=== PATIENT | male | born 1965 | race Caucasian/White ===

== ENCOUNTER 2016-06-14 11:23 | Emergency (ER) | payer SELFPAY ==
[~2016-06-14] VITALS: Ht 177.8 cm; Wt 79.4 kg
[2016-06-14 11:23] VITALS: BP 121/81
== END 2016-06-14 13:55 | disposition home or self-care (01) ==
LOC: ER 11:42
DX: J20.9 Acute bronchitis, unspecified (principal); E78.00 Pure hypercholesterolemia, unspecified
CPT/HCPCS: 99283; A4606; Z7610

== ENCOUNTER 2016-09-13 20:23 | Emergency (ER) | payer SELFPAY ==
[~2016-09-13] VITALS: Ht 177.8 cm; Wt 88.9 kg
[2016-09-13 20:32] VITALS: BP 142/92
== END 2016-09-13 21:07 | disposition home or self-care (01) ==
LOC: ER 20:24
DX: Z76.0 Encounter for issue of repeat prescription (principal); F41.9 Anxiety disorder, unspecified; E03.9 Hypothyroidism, unspecified; F32.9 Major depressive disorder, single episode, unspecified; E78.00 Pure hypercholesterolemia, unspecified
CPT/HCPCS: 99283; A4606; Z7610

== ENCOUNTER 2019-06-29 22:41 | Inpatient (IN) | payer OTHER ==
[~2019-06-29] VITALS: Ht 175.3 cm; Wt 107.5 kg
[2019-06-29] MEDS ORDERED: LORAZEPAM INJ 2 MG/ML VIAL ONE ×4 (22:59→23:45)
[2019-06-29] MEDS ORDERED: LORAZEPAM INJ 2 MG/ML VIAL IV ONE ×2 (23:00→23:30)
[2019-06-29] MEDS ORDERED: IV NS 0.9% 1,000 ML BAG IV ONE (23:00)
--- NOTE | 2019-06-29 23:00 | NUR ---
PT PRESENTED TO THE ER WITH A C/O REACTION TO GENERIC SEROQUEL. PT IS ANXIOUS AND RESTLESS. PT IS AMBULATING AROUND THE ROOM. VERY UPSET. PT IS ON THE MONITOR AND CONTINUOUS PULSE OX.
--- NOTE | 2019-06-29 23:30 | NUR ---
PT REC'D ATIVAN IV AND IS BECOMING MORE AGGITATED AND ANXIOUS. PT IS DIAPHORETIC AND AUDIBLE WHEEZING NOTED. PT IS TAKING OFF ALL MONITOR LEADS. PT'S IV WAS PULLED OUT WHEN PT WAS FLAILING AROUND IN THE BED. NEW 18G IV STARTED IN RT WRIST.
[2019-06-29] MEDS ORDERED: diphenhydrAMINE HCL 50 MG/ML VIAL ONE (23:40)
[2019-06-29] MEDS ORDERED: HALOPERIDOL LACTATE INJ 5 MG/ML VIAL ONE (23:40)
[2019-06-30] VITALS (49 sets, daily range): BP systolic 72–159; BP diastolic 45–110
[2019-06-30] MEDS ORDERED: diphenhydrAMINE HCL 50 MG/ML VIAL IV ONE
[2019-06-30] MEDS ORDERED: HALOPERIDOL LACTATE INJ 5 MG/ML VIAL IV ONE
[2019-06-30] MEDS ORDERED: CYPROHEPTADINE HCL 4 MG TABLET PO ONE
[2019-06-30 00:01] LABS: BASOPHILS # (AUTO) 0.1 /CMM (0.0-0.2); BASOPHILS % (AUTO) 1.4 % (0.0-2.0); EOSINOPHILS % (AUTO) 2.9 % (0.0-6.0); HEMATOCRIT 45 % (39-51); HEMOGLOBIN 15.2 g/dL (13.5-17.5); LYMPHOCYTES # (AUTO) 1.8 /CMM (0.8-4.8); LYMPHOCYTES % (AUTO) 21.4 % (20.0-44.0); MEAN CORPUSCULAR HGB CONC 34 g/dl (31.0-36.0); MEAN CORPUSCULAR VOLUME 87 fL (80-96); MONOCYTES # (AUTO) 0.9 /CMM (0.1-1.30); MONOCYTES % (AUTO) 10.3 % (2.0-12.0); NEUTROPHILS # (AUTO) 5.5 /CMM (1.8-8.9); PLATELET COUNT (AUTO) 278 /CMM (150-450); RED BLOOD CELL COUNT(AUTO) 5.16 MIL/uL (4.5-6.0); WHITE BLOOD COUNT (AUTO) 8.6 K/uL (4.3-11.0)
[2019-06-30] MEDS ORDERED: LORAZEPAM INJ 2 MG/ML VIAL ONE (00:02)
[2019-06-30 00:07] LABS: CALCIUM, SERUM 9.5 mg/dL (8.5-10.1); CREATININE 1.2 mg/dL (0.6-1.3); POTASSIUM 4.4 mmol/L (3.5-5.1)
--- NOTE | 2019-06-30 00:07 | NUR ---
DR AGUILAR AND Jun RAE, PAC IS AT THE BEDSIDE EVALUATING THE PT. PT TO BE INTUBATED.
--- NOTE | 2019-06-30 00:07 | NUR ---
Ayo suggs in ED - 06/30/19 at 0046 by [email or web address] ETOMIDATE 20MG IV VIA 18G RT WRIST.
--- NOTE | 2019-06-30 00:07 | NUR ---
PT BECAME EXTREMELY ANXIOUS AND AGGRESSIVE. PT TO BE INTUBATED
--- NOTE | 2019-06-30 00:08 | NUR ---
PT IS ON THE MONITOR AND CONTINUOUS PULSE OX. HR 96 BP 164/121 0009 TIME OUT DONE BAGGING IN PROCESS 0010 40 MG ETOMIDATE AND 200 MG SUCC VIA 18G RT WRIST. 127 173/115 SUCTIONING IN PROGRESS. 0011 PT BEING INTUBATED 0013 BAGGING PT 0014 PT INTUBATED 24@ LIP ETT 7.5 + COLOR CHANGE 0019 HR 140 BP171/107
[2019-06-30] MEDS ORDERED: PROPOFOL 100 ML ONE ×3 (00:12→04:37)
[2019-06-30 00:13] LABS: ALBUMIN 3.7 g/dL (3.4-5.0); BILIRUBIN,DIRECT 0.1 mg/dL (0.0-0.2); BILIRUBIN,TOTAL 0.6 mg/dL (0.2-1.0); TOTAL PROTEIN, SERUM 6.6 g/dL (6.4-8.2)
--- NOTE | 2019-06-30 00:19 | NUR ---
VENT SETTINGS: AC16, TV550, FIO2 60, PEEP 5.
--- NOTE | 2019-06-30 00:23 | NUR ---
ORAL SUCTIONING DONE WITH CHRIS. INLINE SUCTIONING DONE AND OG TUBE CONNECTED TO INTERMITTENT SUCTIONING. COPIOUS AMOUNTS OF SECTRETIONS REMOVED.
[2019-06-30] MEDS ORDERED: LORAZEPAM INJ 2 MG/ML VIAL IV ONE ×3 (00:30)
--- NOTE | 2019-06-30 00:38 | NUR ---
CXR DONE AT THE BEDSIDE.
[2019-06-30 00:43] LABS: THYROID STIMULATING HORMONE 1.719 uIU/mL (0.358-3.74)
[2019-06-30] MEDS ORDERED: MIDAZOLAM HCL 5 MG/5ML VIAL ONE ×3 (00:49→04:14)
--- NOTE | 2019-06-30 00:57 | NUR ---
PT IS ON 100 MCG/MIN OF PROPOFOL.
[2019-06-30] MEDS ORDERED: FLAGYL/NS RTU 500 MG/100 ML PIGGYBACK IV ONE (01:00)
[2019-06-30] MEDS ORDERED: MIDAZOLAM HCL 2 MG/2ML VIAL IV ONE (01:00)
[2019-06-30] MEDS ORDERED: PIPERACILLIN /TAZOBACTAM 3.375 G in IV D5W 50 ML IV ONE (01:00)
--- NOTE | 2019-06-30 01:00 | NUR ---
SUCTIONING DONE. SMALL AMOUNT OF SECRETIONS REMOVED.
--- NOTE | 2019-06-30 01:01 | NUR ---
RT NOTE Late Entry: Pt rec'd orally intubated via ETT #7.5 secured @ 24cm at the lipline. pt shows no signs of distress or sob. Sx'd for thick large amt of scott secretions. Alarms are set and audible. Ambu bag bedside. Vent plugged into red outlet. Will continue to monitor Addendum: 06/30/19 at 0843 by RODRIGO MCFARLANE RT Amended: Links added.
[2019-06-30] MEDS ORDERED: PIPERACILLIN /TAZOBACTAM 3.375 G VIAL IV ONE (01:06)
[2019-06-30] MEDS ORDERED: METRONIDAZOLE 500MG/ NS 100ML 100 ML IV ONE (01:06)
--- NOTE | 2019-06-30 01:14 | NUR ---
MARCIAL HAMILTON, IS AT THE BEDSIDE DRAWING BLOOD CULTURES
[2019-06-30 01:21] LABS: APPEARANCE,URINE Clear (CLEAR); BILIRUBIN,URINE Negative (NEGATIVE); BLOOD, URINE Negative Ery/uL (NEGATIVE); COLOR,URINE Yellow (YELLOW); KETONES,URINE Negative (NEGATIVE); LEUKOCYTE ESTERASE ,URINE Negative (NEGATIVE); NITRITE, URINE Negative (NEGATIVE); PROTEIN,URINE Negative (NEGATIVE); UGLUCOSE Negative (NEGATIVE); UROBILINOGEN,URINE 0.2 EU/dL (0.2)
[2019-06-30] MEDS ORDERED: IV NS 0.9% 1,000 ML BAG IV ONE ×2 (01:30→04:00)
--- NOTE | 2019-06-30 02:00 | NUR ---
Flagyl 500mg ivpb lh iv#16 end time 0230 Addendum: 06/30/19 at 0648 by CBATACLAN Flagyl 500mg ivpb lh iv#16 end time 0300
[2019-06-30] MEDS ORDERED: MIDAZOLAM HCL 5 MG/5ML VIAL IV ONE ×2 (02:30→04:30)
--- NOTE | 2019-06-30 02:30 | NUR ---
PROPOFOL DECREASED TO 80MCG/MIN
[2019-06-30] MEDS ORDERED: DULOXETINE DR PO (02:39)
[2019-06-30] MEDS ORDERED: LEVO150T8 PO (02:39)
[2019-06-30] MEDS ORDERED: QUET200T PO (02:39)
[2019-06-30] MEDS ORDERED: GABA-786 PO (02:39)
[2019-06-30] MEDS ORDERED: LISI-603 PO (02:39)
--- NOTE | 2019-06-30 02:41 | NUR ---
PT APPEARS TO BE RESTING COMFORTABLY WITH NO S/S OF PAIN OR DISTRESS.
--- NOTE | 2019-06-30 03:13 | NUR ---
PT WAS SUCTIONED. PT'S BP 88/49. PROPOFOL DECREASED BY CHARMAINE RN TO 70MCG/MIN.
--- NOTE | 2019-06-30 03:23 | NUR ---
PROPOFOL DECREASED TO 60MCG/MIN. PT'S BP IS
--- NOTE | 2019-06-30 03:27 | NUR ---
PROPOFOL DECREASED TO 50MCG/MIN
--- NOTE | 2019-06-30 03:28 | NUR ---
INLINE SUCTIONING DONE. SMALL AMOUNT OF SECRETIONS REMOVED.
--- NOTE | 2019-06-30 03:41 | NUR ---
PROPOFOL IS AT 30MCG/MIN.
--- NOTE | 2019-06-30 04:01 | NUR ---
RT IS AT THE BEDSIDE SUCTIONING THE PT AND GETTING AN ABG.
[2019-06-30 04:19] LABS: ABG BASE EXCESS -8.2 mmol/L; ABG OXYGEN SATURATION 96.5 % (92.0-98.5); ABG PCO2 52.8 mmHg (35.0-45.0); ABG PH 7.201 (7.350-7.450); ABG PO2 111.4 mmHg (75.0-100.0); AaDO2 548.8 mmHg; COHb 0.1 % (0.5-1.5); MetHb 0.5 % (0.0-1.5); O2Hb 95.9 % (94.0-97.0); PEEP,BG 5 cm H2O; SITE, ABG Right Radial; VENT MODE, BG AC 16 550 100%
--- NOTE | 2019-06-30 04:20 | NUR ---
VENT SETTINGS CHANGED AFTER ABG TO THE FOLLOWING: AC20, TV600, FIO2 60%, 0 PEEP
--- NOTE | 2019-06-30 05:22 | NUR ---
PT IS STILL TACHYPNEIC WITH RESP 27. PT IS ON 20MCG/MIN OF PROPOFOL VIA 18G RT WRIST.
--- NOTE | 2019-06-30 05:22 | NUR ---
Note es in EDM - 06/30/19 at 0523 by [email or web address] PT IS STIL TACHYPNEIC WITH RESP 27. PT IS ON 20MCG/MIN OF PROPOFOL VIA 18G RT WRIST.
--- NOTE | 2019-06-30 06:08 | NUR ---
PT IS ON THE MONITOR AND CONTINUOUS PULSE OX. PT IS ON 20 MCG/MIN OF PROPOFOL. PT IS STILL TACHYPNEIC WITH RESP @ 28. TOTAL URINE OUTPUT SINCE BINGHAM WAS INSERTED IS 650ML YELLOW URINE.
--- NOTE | 2019-06-30 06:47 | NUR ---
ACCIDENTALLY MARKED OFF FLAGYL ON PT'S EMAR INSTEAD OF MARKING OFF THE NORMAL SALINE ORDER. TRIED TO CORRECT THE ADMINISTRATION ON THE EMAR, BUT AM NOT ABLE TO CORRECT IT. FLAGYL WAS GIVEN BY SHERYL MONTANO AT 0200.
--- NOTE | 2019-06-30 07:08 | NUR ---
REPORT GIVEN TO NAHED SAUCEDO FOR RENAY.
--- NOTE | 2019-06-30 07:32 | NUR ---
patient in bed, connected to the monitor. titrate propofol to 40mcg, patient vital signs recorded. will continue to monitor accordingly.
[2019-06-30] MEDS ORDERED: MIDAZOLAM HCL 200 MG in IV NS 0.9% 60 ML IV PRN (09:00)
[2019-06-30] MEDS ORDERED: LEVOTHYROXINE SODIUM 150 MCG TABLET PO SCH (09:00)
--- NOTE | 2019-06-30 09:03 | NUR ---
received a call from Loren Cvoarrubias in regards with patient on propofol but patient still awaken up, and ordered Versed may titrate to effect, called pharmacy and spoke to Meanastasiia will deliver.
[2019-06-30 09:21] LABS: CALCIUM, SERUM 8.2 mg/dL (8.5-10.1); CREATININE 2.5 mg/dL (0.6-1.3); PHOSPHORUS 2.9 mg/dL (2.5-4.9); POTASSIUM 4.4 mmol/L (3.5-5.1)
[2019-06-30 09:35] LABS: BASOPHILS % (AUTO) 0.5 % (0.0-2.0); EOSINOPHILS % (AUTO) 0.9 % (0.0-6.0); HEMATOCRIT 44 % (39-51); HEMOGLOBIN 14.6 g/dL (13.5-17.5); LYMPHOCYTES # (AUTO) 0.3 /CMM (0.8-4.8); LYMPHOCYTES % (AUTO) 13.7 % (20.0-44.0); MEAN CORPUSCULAR HGB CONC 33 g/dl (31.0-36.0); MEAN CORPUSCULAR VOLUME 88 fL (80-96); MONOCYTES # (AUTO) 0.2 /CMM (0.1-1.30); MONOCYTES % (AUTO) 9.3 % (2.0-12.0); NEUTROPHILS # (AUTO) 1.4 /CMM (1.8-8.9); NEUTROPHILS % (AUTO) 75.6 % (43.0-81.0); PLATELET COUNT (AUTO) 246 /CMM (150-450); RED BLOOD CELL COUNT(AUTO) 5.01 MIL/uL (4.5-6.0)
--- NOTE | 2019-06-30 09:45 | NUR ---
Profopol d/c as ordered by started Versed at 7mg/hr.
[2019-06-30 09:50] LABS: WHITE BLOOD COUNT (AUTO) 1.9 K/uL (4.3-11.0)
[2019-06-30 10:03] LABS: BAND % (MANUAL) 25 % (0.0-5.0); LYMPHOCYTES % (MANUAL) 15 % (16-48); MONOCYTES % (MANUAL) 10 % (0-11.0); NEUTROPHILS % (MANUAL) 50 (42-76)
[2019-06-30] MEDS: MIDAZOLAM HCL 100 MG in IV NS 0.9% 80 ML IV PRN ×2 (10:14→14:35)
[2019-06-30] MEDS: IV NS 0.9% 1,000 ML IV SCH ×2 (10:30→18:14)
--- NOTE | 2019-06-30 11:01 | NUR ---
Versed increased to 10mg/hr may titrate to effect as ordered
[2019-06-30] MEDS ORDERED: IPRATROPIUM NEB FS 0.5 MG/2.5 ML AMPUL.NEB ONE (11:09)
[2019-06-30] MEDS: IPRATROPIUM NEB FS 0.5 MG/2.5 ML AMPUL.NEB NEB SCH ×4 (11:19→23:09)
[2019-06-30] MEDS ORDERED: ETOMIDATE 2 MG/ML VIAL IV ONE (11:24)
[2019-06-30] MEDS ORDERED: SUCCINYLCHOLINE CHLORIDE 20 MG/ML VIAL IV ONE (11:24)
--- NOTE | 2019-06-30 12:31 | NUR ---
GOT ICU BED 261
--- NOTE | 2019-06-30 13:07 | NUR ---
called Dr. wynn regarding patient BP low and informed Dr. Wynn and ordered Levophed may titrate in effect.
--- NOTE | 2019-06-30 13:18 | NUR ---
REPORT GIVEN TO MATEUS SAUCEDO FOR RENAY
--- NOTE | 2019-06-30 13:26 | NUR ---
Dr. Hudson at bedside and ordered Neosynephrine may titrate to effect. All orders carried out and noted.
[2019-06-30] MEDS ORDERED: NOREPINEPHRINE 8 MG in IV D5W 500 ML IV PRN (13:30)
[2019-06-30] MEDS ORDERED: PHENYLEPHRINE 20 MG in IV D5W 250 ML IV PRN (13:30)
--- NOTE | 2019-06-30 13:45 | NUR ---
wheeled patient via gurney accompanied by RN , RT and emt going to room 261 ICU. RN at bedside to assume care.
--- NOTE | 2019-06-30 14:00 | NUR ---
PATIENT ARRIVES FROM ER INTUBATED AND RESTLESS ON VERSED DRIP AND NON RESPONSIVE TO VERBAL STIMULI. WAS ABLE TO CONTACT SPOUSE JONAH SALGADO AFTER PATIENT PHONE RANG AND HIS MENTAL HEALTH WORKER STATES SHE WILL CONTACT FAMILY AND HAVE HER TO CALL US.CONSENT WAS OBTAINED TO PLACE PICC LINE.
[2019-06-30] MEDS ORDERED: IV NS 0.9% 1,000 ML IV PRN (15:29)
[2019-06-30] MEDS ORDERED: ONDANSETRON HCL/PF 4 MG/2 ML VIAL IVP PRN (15:30)
[2019-06-30] MEDS ORDERED: Z GUARD REMEDY 2 OZ OINT TP PRN (15:30)
[2019-06-30] MEDS ORDERED: ACETAMINOPHEN 325 MG TABLET PO PRN (15:30)
[2019-06-30] MEDS: PANTOPRAZOLE 40 MG VIAL IV SCH (15:30)
[2019-06-30 15:59] LABS: BASOPHILS % (AUTO) 0.5 % (0.0-2.0); EOSINOPHILS % (AUTO) 0.8 % (0.0-6.0); HEMATOCRIT 35 % (39-51); HEMOGLOBIN 11.9 g/dL (13.5-17.5); LYMPHOCYTES # (AUTO) 0.4 /CMM (0.8-4.8); LYMPHOCYTES % (AUTO) 8.9 % (20.0-44.0); MEAN CORPUSCULAR HGB CONC 34 g/dl (31.0-36.0); MEAN CORPUSCULAR VOLUME 89 fL (80-96); MONOCYTES # (AUTO) 0.3 /CMM (0.1-1.30); MONOCYTES % (AUTO) 7.6 % (2.0-12.0); NEUTROPHILS # (AUTO) 3.6 /CMM (1.8-8.9); NEUTROPHILS % (AUTO) 82.2 % (43.0-81.0); PLATELET COUNT (AUTO) 181 /CMM (150-450); RED BLOOD CELL COUNT(AUTO) 3.89 MIL/uL (4.5-6.0); WHITE BLOOD COUNT (AUTO) 4.3 K/uL (4.3-11.0)
[2019-06-30] MEDS ORDERED: MORPHINE SULFATE INJ 4 MG/ML DISP.SYRIN IV ONE (16:00)
[2019-06-30] MEDS ORDERED: PROPOFOL 100 ML IV PRN (16:00)
[2019-06-30 16:10] LABS: CALCIUM, SERUM 7.5 mg/dL (8.5-10.1); CREATININE 3.2 mg/dL (0.6-1.3); POTASSIUM 4.6 mmol/L (3.5-5.1)
[2019-06-30 16:23] LABS: ALBUMIN 2.6 g/dL (3.4-5.0); BILIRUBIN,TOTAL 1.3 mg/dL (0.2-1.0); MAGNESIUM 1.6 mg/dL (1.8-2.4); PHOSPHORUS 4.1 mg/dL (2.5-4.9); TOTAL PROTEIN, SERUM 4.8 g/dL (6.4-8.2)
[2019-06-30 17:33] LABS: EOSINOPHILS % (MANUAL) 1 % (0-4); LYMPHOCYTES % (MANUAL) 10 % (16-48); MONOCYTES % (MANUAL) 9 % (0-11.0); NEUTROPHILS % (MANUAL) 80 (42-76)
[2019-06-30] MEDS: PROPOFOL 100 ML IV PRN ×2 (18:16→21:08)
--- NOTE | 2019-06-30 19:00 | NUR ---
RECEIVED PATIENT ORALLY INTUBATED ,TO THE VENTILATOR ON AC MODE, TACHYPNEIC, WITH DEEP INSPIRATORY EFFORT, RR=30'S . HYPOTENSIVE ,JUST STARTED ON NEOSYNEPHRINE DRIP FOR BP SUPPORT(MAINTAIN BP 90 SYSTOLIC AND ABOVE), ON PROPOFOL DRIP FOR SEDATION (SAS OF 3), WILL TITRATED DRIPS TOLERATED. PICC LINE VIA DORY (INSERTED TODAY). OGT CLAMPED NOTED LIGHT BROWNISH DRAINAGE.
--- NOTE | 2019-06-30 20:00 | NUR ---
STILL TACHYPNEIC WITH LABORED BREATHING( UNABLE TO INCREASE PROPOFOL HIGHER DUE TO HYPOTENSION.), WILL TITRATE NEOSYNEPHRINE DRIP.
--- NOTE | 2019-06-30 20:19 | NUR ---
RECEIVED PT INTUBATED 7.5 ETT SECURED AT 24CM AT THE LIP. NO DISTRESS. PT TOLERATING VENT SETTINGS. B/S DIMINISHED BILAT. SX'D FOR SML AMT OF THICK GOODMAN SECRETIONS. VENT ALARMS SET AND AUDIBLE AMBU BAG AT BEDSIDE. CONTINUE [facility] VENT SUPPORT. Addendum: 06/30/19 at 2020 by CALEB JACOBO RT Amended: Links added.
[2019-06-30] MEDS: ENOXAPARIN SODIUM 40 MG/0.4 ML DISP.SYRIN SQ SCH (22:04)
--- NOTE | 2019-06-30 22:30 | NUR ---
CONTACTED MOD, MARY JO AUGUSTIN RESPONDED, UPDATED ON PATIENT'S STATUS,STILL TACHYPNEIC WITH LABORED BREATHING AND STILL TACHYCARDIC, UNABLE TO INCREASE SEDATION DUE TO HYPOTENSION,ASKE IF ATIVAN PRN CAN BE GIVEN .MARY JO AUGUSTIN AGREED,ASKED IF LUMBAR PUNCTURE WAS DONE, MADE HIM KNOWN THAT IT WAS NOT DONE . WANTS TO SET UP FOR LUMBAR PUNCTURE TONIGHT. 2300 CALLED FAMILY ( NUMBER FROM THE CHART) NO ONE ANSWERED ,LEFT MESSAGE VIA VOICEMAIL TO OBTAIN CONSENT.
[2019-06-30] MEDS: LORAZEPAM INJ 2 MG/ML VIAL IV PRN (22:56)
[2019-06-30] MEDS: PHENYLEPHRINE 80 MG in IV NS 0.9% 250 ML IV PRN (23:04)
--- NOTE | 2019-06-30 23:25 | NUR ---
STAT CT HEAD ORDERED BY MARY JO AUGUSTIN,ENTERED ORDER STAT.CALLED CT DEPT. TO MAKE THEM AWARE OF CT
--- NOTE | 2019-06-30 23:45 | NUR ---
2ND CALL MADE TO FAMILY,WENT TO VOICE MAIL,LEFT MESSAGE AGAIN TO CALL BACK TO OBTAIN CONSENT FOR LUMBAR PUNCTURE.
[2019-07-01] VITALS (80 sets, daily range): BP systolic 74–140; BP diastolic 43–82
--- NOTE | 2019-07-01 00:25 | NUR ---
BROUGHT PATIENT DOWN TO CT DEPT FOR CT OF HEAD
[2019-07-01] MEDS ORDERED: MEROPENEM 1 G VIAL IV ONE (00:57)
[2019-07-01] MEDS: MEROPENEM 1 G in IV NS 0.9% 100 ML IV SCH ×3 (01:00→23:54)
[2019-07-01] MEDS ORDERED: MIDAZOLAM HCL 2 MG/2ML VIAL IV ONE (01:00)
[2019-07-01] MEDS ORDERED: VANCOMYCIN 1.5 GM in IV D5W 500ml IV ONE (01:00)
[2019-07-01] MEDS: PROPOFOL 100 ML IV PRN ×9 (01:05→21:46)
[2019-07-01] MEDS ORDERED: MIDAZOLAM HCL 2 MG/2ML VIAL ONE (01:12)
--- NOTE | 2019-07-01 01:15 | NUR ---
LUMBAR PUNCTURE DONE AT BEDSIDE BY MARY JO AUGUSTIN ,FAMILY DID NOT CALL BACK FOR THE CONSENT ,BUT PROCEDURE NECESSARY TO BE DONE PER MARY JO AUGUSTIN DUE TO CONDITION.
--- NOTE | 2019-07-01 01:35 | NUR ---
LUMBAR PUNCTURE DONE SUCCESSFULLY BY MARY JO AUGUSTIN , CSF IS CLEAR, PRESSURE= 39 . SPECIMEN SENT DIRECTLY TO THE LAB FOR MULTIPLE TEST.
[2019-07-01] MEDS ORDERED: VANCOMYCIN 1 GM VIAL ONE (02:17)
[2019-07-01 02:28] LABS: CSF GLUCOSE 70 mg/dL (40-70)
[2019-07-01 02:30] LABS: CSF PROTEIN 34 mg/dL (15-45)
--- NOTE | 2019-07-01 02:30 | NUR ---
NOTED TO BE MORE RESTLESS,GAGGING AND STILL TACHYPNEIC , PROPOFOL DRIP TITRATED UP .
[2019-07-01] MEDS ORDERED: PHENYLEPHRINE 10 MG/ML VIAL ONE (02:46)
[2019-07-01] MEDS: LORAZEPAM INJ 2 MG/ML VIAL IV PRN (03:06)
[2019-07-01] MEDS: IPRATROPIUM NEB FS 0.5 MG/2.5 ML AMPUL.NEB NEB SCH ×5 (03:23→23:33)
--- NOTE | 2019-07-01 04:00 | NUR ---
REMAINS TACHYPNEIC ,SEDATED BUT NOTED FREQUENT MOVING/WITHDRAWING BOTH LOWER EXTREMITIES ,? IF INVOLUNTARY MOVEMENT. AM BATH DONE, TEMP. = 100.3 ,FEELS WARM TO TOUCH AND DIAPHORETIC,COOLONG MEASURES DONE.
[2019-07-01] MEDS: PHENYLEPHRINE 80 MG in IV NS 0.9% 250 ML IV PRN ×4 (04:12→21:47)
[2019-07-01 04:38] LABS: BASOPHILS % (AUTO) 0.2 % (0.0-2.0); EOSINOPHILS % (AUTO) 0.4 % (0.0-6.0); HEMATOCRIT 42 % (39-51); HEMOGLOBIN 14.1 g/dL (13.5-17.5); LYMPHOCYTES # (AUTO) 0.6 /CMM (0.8-4.8); MEAN CORPUSCULAR HGB CONC 34 g/dl (31.0-36.0); MEAN CORPUSCULAR VOLUME 89 fL (80-96); MONOCYTES # (AUTO) 0.4 /CMM (0.1-1.30); MONOCYTES % (AUTO) 3.1 % (2.0-12.0); NEUTROPHILS # (AUTO) 10.5 /CMM (1.8-8.9); NEUTROPHILS % (AUTO) 91.3 % (43.0-81.0); PLATELET COUNT (AUTO) 223 /CMM (150-450); RED BLOOD CELL COUNT(AUTO) 4.68 MIL/uL (4.5-6.0); WHITE BLOOD COUNT (AUTO) 11.5 K/uL (4.3-11.0)
[2019-07-01 04:46] LABS: CALCIUM, SERUM 7.8 mg/dL (8.5-10.1); CREATININE 3.6 mg/dL (0.6-1.3); POTASSIUM 5.5 mmol/L (3.5-5.1)
[2019-07-01 04:51] LABS: ALBUMIN 2.6 g/dL (3.4-5.0); BILIRUBIN,TOTAL 0.9 mg/dL (0.2-1.0); MAGNESIUM 1.6 mg/dL (1.8-2.4); PHOSPHORUS 5.2 mg/dL (2.5-4.9); TOTAL PROTEIN, SERUM 5.3 g/dL (6.4-8.2)
--- NOTE | 2019-07-01 05:30 | NUR ---
BP DROP TO THE 70'S AFTER COOLING MEASURES,PATIENT CALMER,HEART RATE DOWN BELOW 100'S..TITRATED NEOSYNEPHRINE DRIP UP AND WILL WEAN DOWN PROPOFOL DRIP TOLERATED.
--- NOTE | 2019-07-01 07:00 | NUR ---
PATIENT CALMER,WELL SEDATED,STILL ON NEOSYNEPHRINE ,BP IN THE 90'S SYSTOLIC-LOW 100'S, GEART RATE IN THE 90'S..REPORT GIVE TO DELMI SAUCEDO
--- NOTE | 2019-07-01 08:35 | NUR ---
received pt from warehouse worker 2nd shift, sedated on Diprivan at 60mcg, SR, ST, intubated, on the vent, lungs congested, no edema, OG clamped, f/c low output, MD aware, receiving fredis at 280mcg, restraints on, v/s stable, no pain, pt turned and repositioned.
[2019-07-01] MEDS: PANTOPRAZOLE 40 MG VIAL IV SCH (08:46)
[2019-07-01] MEDS: LEVOTHYROXINE SODIUM 75 MCG TABLET PO SCH (08:47)
[2019-07-01] MEDS: IV NS 0.9% 1,000 ML IV PRN ×2 (08:58→18:20)
[2019-07-01] MEDS ORDERED: IV NS 0.9% 500 ML IV ONE (09:00)
[2019-07-01] MEDS ORDERED: FEE PK DOSING 1 MIN EA MC ONE (10:04)
[2019-07-01] MEDS ORDERED: SODIUM POLYSTYRENE SULFONATE 15 G/60 ML BOTTLE PO ONE (13:00)
[2019-07-01 14:10] LABS: ABG BASE EXCESS -0.5 mmol/L; ABG OXYGEN SATURATION 94.3 % (92.0-98.5); ABG PCO2 45.4 mmHg (35.0-45.0); AaDO2 60.1 mmHg; COHb 0.1 % (0.5-1.5); MetHb 0.1 % (0.0-1.5); O2Hb 94.1 % (94.0-97.0); SITE, ABG Right Radial; VENT MODE, BG NASAL CANNULA
[2019-07-01 14:21] LABS: ABG BASE EXCESS -5.4 mmol/L; ABG OXYGEN SATURATION 94.1 % (92.0-98.5); ABG PCO2 33.6 mmHg (35.0-45.0); ABG PH 7.369 (7.350-7.450); ABG PO2 70.4 mmHg (75.0-100.0); AaDO2 248.3 mmHg; COHb 0.3 % (0.5-1.5); MetHb 0.4 % (0.0-1.5); O2Hb 93.4 % (94.0-97.0); PEEP,BG 0 cm H2O; SITE, ABG Right Radial; VT, ABG 600 mL
[2019-07-01 14:47] LABS: CALCIUM, SERUM 7.7 mg/dL (8.5-10.1); CREATININE 2.6 mg/dL (0.6-1.3); POTASSIUM 4.7 mmol/L (3.5-5.1)
--- NOTE | 2019-07-01 16:29 | NUR ---
pt is resting in the bed, SR, sedated on Diprivan at 55mcg, receiving fredis at 160mcg, f/c good output, v/s stable, no pain, pt cleaned, changed and repositioned q2hrs.
--- NOTE | 2019-07-01 19:00 | NUR ---
RECEIVED PATIENT ORALLY INTUBATED, ON AC MODE TO THE VENTILATOR. NOT IN ANY RESPIRATORY DISTRESS,SEDATED ON PROPOFOL DRIP,RESPONDS TO DEEP PAIN, + COUGH, + GAG. WITHDRAWS EXTREMITIES TO PAIN.ON NEOSYNEPHRINE DRIP FOR BP SUPPORT(MAINTAIN SBP =90). COMFORT CARE DONE.
[2019-07-01] MEDS: ENOXAPARIN SODIUM 40 MG/0.4 ML DISP.SYRIN SQ SCH (21:37)
--- NOTE | 2019-07-01 22:00 | NUR ---
REMAINS CALM,STABLE V/S,NOT IN ANY DISTRESS
[2019-07-02] VITALS (83 sets, daily range): BP systolic 88–150; BP diastolic 50–98
--- NOTE | 2019-07-02 | NUR ---
AFEBRILE,REMAINS STABLE BP ,STILL ON PROPOFOL @ 50 MCG/KG/MIN. COMFORT CARE DONE,REPOSITIONED.
--- NOTE | 2019-07-02 01:00 | NUR ---
TACHYPNEIC,TACHYCARDIC AND GETTING A LITTLE RESTLESS ,GAGGING AND COUGHING ,LABORED BREATHING ,FEELS WARM RXUE=167.7. COOLING MEASURES DONE, WASH WITH COLD WATER.
[2019-07-02] MEDS: PROPOFOL 100 ML IV PRN ×10 (01:14→23:57)
[2019-07-02] MEDS: ACETAMINOPHEN 650 MG/20.3 ML UDC NG PRN ×2 (01:25→21:01)
--- NOTE | 2019-07-02 02:00 | NUR ---
DESPITE COOLING MEASURES ,REMAINS TACHYPNEIC,TACHYCARDIC,BREATHING VERY LABORED , WITH PEAK PRESSURES OF 45-50, AND TIDAL VOLUME GOING UP HIGH 800 DESPITE INCREASING PROPOFOL DRIP. ATIVEN 2 MG IVP GIVEN.
[2019-07-02] MEDS: LORAZEPAM INJ 2 MG/ML VIAL IV PRN (02:05)
[2019-07-02] MEDS: IPRATROPIUM NEB FS 0.5 MG/2.5 ML AMPUL.NEB NEB SCH ×6 (02:44→23:22)
--- NOTE | 2019-07-02 03:00 | NUR ---
CALMER AFTER THE ATIVAN ,BUT STILL GETS RESTLESS ,STILL GETS TACHYPNEIC ,WILL MAINTAIN PROPOFOL DRIP @ 80 MCG/KG/MIN FOR NOW.
--- NOTE | 2019-07-02 04:00 | NUR ---
FEVER IS DOWN TO NORMAL. PATIENT CALMER. HEART RATE IN THE 90'S. LESS TACHYPNEIC
[2019-07-02] MEDS: IV NS 0.9% 1,000 ML IV PRN ×2 (04:37→15:39)
[2019-07-02 05:04] LABS: POTASSIUM 4.4 mmol/L (3.5-5.1)
[2019-07-02] MEDS: PHENYLEPHRINE 80 MG in IV NS 0.9% 250 ML IV PRN ×2 (05:38→16:49)
--- NOTE | 2019-07-02 06:00 | NUR ---
CALM,BREATHING NON LABORED NOW, WILL WEAN DOWN PROPOFOL ,WEAN DOWN NEOSYNEPHRINE TOLERATED
--- NOTE | 2019-07-02 07:00 | NUR ---
TRANSFER OF CARE AND REPORT GIVEN TO DELMI SAUCEDO
[2019-07-02] MEDS: LEVOTHYROXINE SODIUM 75 MCG TABLET PO SCH (07:34)
[2019-07-02] MEDS: PANTOPRAZOLE 40 MG VIAL IV SCH (08:00)
[2019-07-02] MEDS: MEROPENEM 1 G in IV NS 0.9% 100 ML IV SCH ×2 (08:00→21:01)
[2019-07-02 08:03] LABS: ABG BASE EXCESS -5.9 mmol/L; ABG OXYGEN SATURATION 96.1 % (92.0-98.5); ABG PCO2 35.3 mmHg (35.0-45.0); ABG PH 7.348 (7.350-7.450); ABG PO2 91.4 mmHg (75.0-100.0); AaDO2 225.4 mmHg; COHb 0.3 % (0.5-1.5); MetHb 0.3 % (0.0-1.5); O2Hb 95.5 % (94.0-97.0); PEEP,BG 0 cm H2O; SITE, ABG Right Radial; VT, ABG 600 mL
--- NOTE | 2019-07-02 08:29 | NUR ---
received pt from slot shift manager, sedated on Diprivan at 60mcg, SR, on the vent, BL PNA, no edema, OG clamped, f/c good output, receiving fredis at 150mcg, restraints on, v/s stable, no pain, pt turned and repositioned.
[2019-07-02 09:16] LABS: BASOPHILS % (AUTO) 0.3 % (0.0-2.0); EOSINOPHILS % (AUTO) 2.8 % (0.0-6.0); HEMATOCRIT 38 % (39-51); HEMOGLOBIN 12.5 g/dL (13.5-17.5); LYMPHOCYTES # (AUTO) 0.4 /CMM (0.8-4.8); MEAN CORPUSCULAR HGB CONC 33 g/dl (31.0-36.0); MEAN CORPUSCULAR VOLUME 90 fL (80-96); MONOCYTES # (AUTO) 0.2 /CMM (0.1-1.30); NEUTROPHILS # (AUTO) 8.8 /CMM (1.8-8.9); NEUTROPHILS % (AUTO) 90.9 % (43.0-81.0); PLATELET COUNT (AUTO) 190 /CMM (150-450); RED BLOOD CELL COUNT(AUTO) 4.25 MIL/uL (4.5-6.0); WHITE BLOOD COUNT (AUTO) 9.7 K/uL (4.3-11.0)
[2019-07-02 09:30] LABS: ALBUMIN 2.1 g/dL (3.4-5.0); BILIRUBIN,TOTAL 0.8 mg/dL (0.2-1.0); CREATININE 2.1 mg/dL (0.6-1.3); MAGNESIUM 2.1 mg/dL (1.8-2.4); PHOSPHORUS 3.6 mg/dL (2.5-4.9); POTASSIUM 4.4 mmol/L (3.5-5.1); TOTAL PROTEIN, SERUM 5.1 g/dL (6.4-8.2)
[2019-07-02 12:07] LABS: *SPE A/G RATIO 1.3 (0.7-1.7); *SPE ALBUMIN 2.7 g/dL (2.9-4.4); *SPE ALPHA-1-GLOBULIN 0.4 g/dL (0.0-0.4); *SPE ALPHA-2-GLOBULIN 0.7 g/dL (0.4-1.0); *SPE BETA GLOBULIN 0.6 g/dL (0.7-1.3); *SPE GLOBULIN, TOTAL 2.1 g/dL (2.2-3.9); *SPE M-SPIKE Not Observed g/dL (Not Observed); *SPEGAMMA GLOBULIN 0.5 g/dL (0.4-1.8); PTH, INTACT 161 pg/mL (15-65)
--- NOTE | 2019-07-02 14:15 | NUR ---
RUN LEAD: got pt/sedated well with 50mcg/kg/m Diprivan, rest, reactive by touch/pain stimuli, on wrist restraints, O2sat. over 94%, suctioned well, no SOB, SR, on Raymond gtt now 80 mcg/kg/m, SBP over 90 now, continue titrate, NPO
[2019-07-02] MEDS: VANCOMYCIN 1.25 GM in IV D5W 250 ML IV SCH (15:24)
--- NOTE | 2019-07-02 16:27 | NUR ---
WEAVING TEACHER: pt. is with laboring breathing, RR 24-32, over vent., O2sat. over 96%, biting ETT slightly, increased sedation to 70 mcg/kg/m Diprivan, suctioned well, RT is in room, Tv, peak ok, checked ETT, going to give resp.Tx
--- NOTE | 2019-07-02 18:15 | NUR ---
COMMERCIAL LOAN ADMINISTRATOR: pt is grimacing, episodes of restless, SR/ST, RR over vent: 24-28, O2sat. over 95%, sedation increased/now 80 mcg/kg/m Diprivan, continue titrate Raymond gtt/20 mcg/m now, suctioned well, RT updated, all PM/skin care done, still on wrists restraint, skin is intact
--- NOTE | 2019-07-02 20:28 | NUR ---
pt os received sedated is unarousable. Propofol drip at 90 mcg/kg/min infusing , as per MD, by the R upper arm. Resp is labored with abdominal breathing noted. Pt BP 144 71. Neosynehride drip is off. T 100.2 B.L wrist restraints in place. Same released and reapply per protocol/ L hand has trace of edema. Will elevate left hand on pillow. Will notify MD of status.
[2019-07-02] MEDS: ENOXAPARIN SODIUM 40 MG/0.4 ML DISP.SYRIN SQ SCH (21:10)
[2019-07-03] VITALS (91 sets, daily range): BP systolic 88–145; BP diastolic 52–101
[2019-07-03] MEDS ORDERED: VANCOMYCIN 1.5 GM in IV D5W 500 ML IV SCH (01:00)
[2019-07-03] MEDS: PROPOFOL 100 ML IV PRN ×10 (01:37→23:50)
[2019-07-03] MEDS: IPRATROPIUM NEB FS 0.5 MG/2.5 ML AMPUL.NEB NEB SCH ×6 (02:45→23:30)
--- NOTE | 2019-07-03 03:13 | NUR ---
monitor car operator shows sinus rhythm. Pt remains sedated. Titrade propofol 75 mcg/kg/min.
[2019-07-03 05:17] LABS: BASOPHILS % (AUTO) 0.4 % (0.0-2.0); EOSINOPHILS % (AUTO) 3.2 % (0.0-6.0); HEMATOCRIT 35 % (39-51); LYMPHOCYTES # (AUTO) 0.4 /CMM (0.8-4.8); LYMPHOCYTES % (AUTO) 3.7 % (20.0-44.0); MEAN CORPUSCULAR HGB CONC 34 g/dl (31.0-36.0); MEAN CORPUSCULAR VOLUME 88 fL (80-96); MONOCYTES # (AUTO) 0.4 /CMM (0.1-1.30); MONOCYTES % (AUTO) 3.4 % (2.0-12.0); NEUTROPHILS # (AUTO) 10.5 /CMM (1.8-8.9); NEUTROPHILS % (AUTO) 89.3 % (43.0-81.0); PLATELET COUNT (AUTO) 169 /CMM (150-450); RED BLOOD CELL COUNT(AUTO) 3.97 MIL/uL (4.5-6.0); WHITE BLOOD COUNT (AUTO) 11.7 K/uL (4.3-11.0)
[2019-07-03 05:28] LABS: CALCIUM, SERUM 8.2 mg/dL (8.5-10.1); CREATININE 1.3 mg/dL (0.6-1.3); MAGNESIUM 2.3 mg/dL (1.8-2.4); PHOSPHORUS 2.4 mg/dL (2.5-4.9); POTASSIUM 3.9 mmol/L (3.5-5.1)
[2019-07-03 06:01] LABS: BAND % (MANUAL) 5 % (0.0-5.0); EOSINOPHILS % (MANUAL) 2 % (0-4); LYMPHOCYTES % (MANUAL) 4 % (16-48); MONOCYTES % (MANUAL) 3 % (0-11.0); NEUTROPHILS % (MANUAL) 86 (42-76)
[2019-07-03] MEDS: PANTOPRAZOLE 40 MG VIAL IV SCH (08:04)
[2019-07-03] MEDS: LEVOTHYROXINE SODIUM 75 MCG TABLET PO SCH (08:04)
[2019-07-03] MEDS: MEROPENEM 1 G in IV NS 0.9% 100 ML IV SCH ×2 (08:04→21:35)
--- NOTE | 2019-07-03 08:46 | NUR ---
received pt from fuel cell builder, sedated on Diprivan at 70mcg, SR, intubated, on the vent, lungs congested, no edema, NPO, OG clamped, f/c OK output, restraints on, v/s stable, no pain, pt turned and repositioned.
[2019-07-03 08:48] LABS: ABG BASE EXCESS -6.2 mmol/L; ABG OXYGEN SATURATION 96.7 % (92.0-98.5); ABG PCO2 34.8 mmHg (35.0-45.0); ABG PH 7.348 (7.350-7.450); ABG PO2 99.4 mmHg (75.0-100.0); COHb 0.3 % (0.5-1.5); MetHb 0.5 % (0.0-1.5); O2Hb 95.9 % (94.0-97.0); PEEP,BG 0 cm H2O; SITE, ABG Right Radial; VT, ABG 600 mL
[2019-07-03] MEDS: VANCOMYCIN 1.25 GM in IV D5W 250 ML IV SCH (09:11)
[2019-07-03] MEDS ORDERED: K PHOS NEUTRAL 250 MG TABLET PO ONE (10:00)
[2019-07-03] MEDS ORDERED: NEUTRA PHOS 1 POWD.PACKET NG ONE (10:30)
[2019-07-03] MEDS: LORAZEPAM INJ 2 MG/ML VIAL IV PRN ×4 (15:50→22:14)
--- NOTE | 2019-07-03 16:24 | NUR ---
pt is resting in the bed, sedated on Diprivan at 70mcg, SR, OK urine output, v/s stable, no pain, pt cleaned, changed and repositioned q2hrs.
[2019-07-03] MEDS: IV NS 0.9% 1,000 ML IV PRN (17:07)
--- NOTE | 2019-07-03 19:05 | NUR ---
ICU/RN notes Patient received in bed, in no acute distress, breathing even and unlabored. no SOB noted. On Diprivan 100 mcg/min. Sedated, respond to light painful stimuli. ETT at 7.5/22m patent, connected to vent with prescribed settings. Link cath in place, patent draining well with yello color urine. Snius Rhythm on the monitor. Safety maintained, bed at the lowest locked position. bilateral wrist restraint in place, Will continue to monitor as per plan of care. Addendum: 07/04/19 at 0645 by HERMINIO JAMES RN ETT at 7.5/23 Addendum: 07/04/19 at 0646 by HERMINIO JAMES RN Link draining with green, tea color urine
[2019-07-03] MEDS: VANCOMYCIN 1.5 GM in IV D5W 500 ML IV SCH (21:36)
[2019-07-03] MEDS: ENOXAPARIN SODIUM 40 MG/0.4 ML DISP.SYRIN SQ SCH (21:37)
[2019-07-04] VITALS (45 sets, daily range): BP systolic 89–152; BP diastolic 49–88
[2019-07-04] MEDS: PROPOFOL 100 ML IV PRN ×12 (01:45→23:39)
[2019-07-04] MEDS: IPRATROPIUM NEB FS 0.5 MG/2.5 ML AMPUL.NEB NEB SCH ×6 (03:22→23:15)
[2019-07-04] MEDS: IV NS 0.9% 1,000 ML IV PRN ×2 (04:59→18:18)
[2019-07-04 05:31] LABS: CALCIUM, SERUM 7.7 mg/dL (8.5-10.1); CREATININE 1.2 mg/dL (0.6-1.3); PHOSPHORUS 2.7 mg/dL (2.5-4.9); POTASSIUM 3.8 mmol/L (3.5-5.1)
--- NOTE | 2019-07-04 07:11 | NUR ---
ICU/RN notes Patient remained in bed, in no acute distress, breathing even and unlabored. no SOB noted. On Diprivan 85mcg/min. Sedated, respond to light painful stimuli. ETT at 7.5/23m patent, connected to vent with prescribed settings. Link cath in place, patent draining well with green color urine. Sinus tachy on the monitor. Due meds given as ordered Safety maintained, bed at the lowest locked position. bilateral wrist restraint in place, needs attendant. kept clean and dry. Endorse to AM shift nurse for RENAY
--- NOTE | 2019-07-04 07:15 | NUR ---
RN NOTES RECEIVED PATIENT, SEDATED WITH DIPRIVAN DRIP AT 85MCG/MIN. INTUBATED WITH ETT 7.5 AT 22 CM ON THE LIP. PATIENT TACHYPNEIC BUT IS SATING WELL AT 95% AT CURRENT VENT SETTING. SINUS TACHY ON THE MONITOR WITH HR ON THE 11Os. PATIENT SUCTIONED FOR AIRWAY PATENCY, SECRETION NOTED TO BE THICK. OGT IN PLACE AND SECURE, ASPIRATED AND NOTED WITH 40CC OF TEA COLORED SECRETION. PICC LINE ON THE DORY IN PLACE, DRESSING CLEAN AND INTACT WITH ONGOING IVF OF NS AT 100CC /HR. BILATERAL SOFT RESTRAINTS ON, REMOVED AND REPLACED TO CHECK FOR SKIN INTEGRITY, SKIN INTACT, NO SKIN BREAKDOWN NOTED AT THIS TIME. BINGHAM CATHETER IN PLACE AND DRAINING VIA GRAVITY TO GREENISH OUTPUT. HOB KEPT ELEVATED. BED IN LOW AND LOCKED POSITION. CALL LIGHT WITHIN REACH. WILL CONTINUE TO MONITOR PATIENT ACCORDINGLY
--- NOTE | 2019-07-04 07:30 | NUR ---
RN NOTES PATIENT FULLY AWAKE AND RESTLESS WITH ATTEMPTS TO GET OF BED AT THIS TIME EVEN WITH DIPRIVAN RUNNING AT 70MCG/MIN. REORIENTED BUT STILL RESTLESS. WILL CONTINUE TO MONITOR PATIENT ACCORDINGLY
--- NOTE | 2019-07-04 08:14 | NUR ---
RN NOTES PATIENT PLACED BACK ON DIPRIVAN DRIP SINCE NOTED WITH AGITATION. WILL CONTINUE TO MONITOR CLOSELY
[2019-07-04] MEDS: ACETAMINOPHEN 650 MG/20.3 ML UDC NG PRN (08:32)
[2019-07-04] MEDS: LORAZEPAM INJ 2 MG/ML VIAL IV PRN ×2 (08:32→19:54)
[2019-07-04] MEDS: PANTOPRAZOLE 40 MG VIAL IV SCH (08:32)
[2019-07-04] MEDS: LEVOTHYROXINE SODIUM 75 MCG TABLET PO SCH (08:38)
[2019-07-04] MEDS: MEROPENEM 1 G in IV NS 0.9% 100 ML IV SCH ×2 (08:45→20:04)
[2019-07-04 09:04] LABS: ABG BASE EXCESS -4.6 mmol/L; ABG PCO2 41.4 mmHg (35.0-45.0); ABG PH 7.326 (7.350-7.450); ABG PO2 86.4 mmHg (75.0-100.0); AaDO2 223.5 mmHg; COHb 1.3 % (0.5-1.5); MetHb 0.6 % (0.0-1.5); O2Hb 94.1 % (94.0-97.0); PEEP,BG 0 cm H2O; SITE, ABG Right Radial; VT, ABG 600 mL
[2019-07-04] MEDS: VANCOMYCIN 1.5 GM in IV D5W 500 ML IV SCH ×2 (09:38→21:04)
--- NOTE | 2019-07-04 17:45 | NUR ---
RT NOTE: PATIENT RECEIVED ORALLY INTUBATED WITH 7.5 ETT SECURED AT 24CM MID LIP LINE ON ESPRIT VENT. ALARMS VERIFIED AND AUDIBLE. SUCTIONED AND LAVAGED THICK GOODMAN SECRETIONS. VENT PLUGGED INTO RED OUTLET. AMBU BAG AT [facility].
--- NOTE | 2019-07-04 19:34 | NUR ---
NOTICED ETT IS AT 20CM, TUBE IS LOOSE. NOTIFIED RN AND FLAT CLOTHIER ED. XRAY CALLED TO CHECK FOR ETT PLACEMENT.
--- NOTE | 2019-07-04 19:35 | NUR ---
RN OPENING NOTE RECEIVED PT SEDATED IN BED IN SEMI HERRON'S POSITION. PT ON MECHANICAL VENTILATOR WITHOUT SIGNS OF RESPIRATORY DISTRESS. PT ON DIPROVAN IV 100MCG /HOUR WITH PERIODS OF MILD AGITATION NOTED. PT WITH BINGHAM CATHETER PATENT AND IN PLACE DRAINING CLEAR DARK BROWN COLORED URINE. WITH PICC LINE ON DORY. PT KEPT CLEAN AND DRY, SAFEY MEASURES IN PLACE. CALL LIGHT WITHIN REACH, WILL MONITOR.
[2019-07-04] MEDS: ENOXAPARIN SODIUM 40 MG/0.4 ML DISP.SYRIN SQ SCH (20:13)
[2019-07-05] VITALS (38 sets, daily range): BP systolic 74–146; BP diastolic 36–89
[2019-07-05] MEDS: LORAZEPAM INJ 2 MG/ML VIAL IV PRN ×5 (00:41→19:14)
[2019-07-05] MEDS: PROPOFOL 100 ML IV PRN ×13 (01:26→23:36)
[2019-07-05] MEDS: IPRATROPIUM NEB FS 0.5 MG/2.5 ML AMPUL.NEB NEB SCH ×5 (03:28→20:07)
--- NOTE | 2019-07-05 03:57 | NUR ---
RN NOTE PT NOTED WITH UNRESOLVED MILD AGITATION. PT ALREADY ON MAX PROPOFOL 100MCG/KG/MIN AND ATIVAN 2MG IV Q3H PRN. NOTIFIED DR. MARY JO AUGUSTIN WITH ORDER TO CHANGE ATIVAN TO 2MG IV Q2H PRN FOR AGITATION. ORDER NOTED AND CARRIED OUT.
[2019-07-05] MEDS: IV NS 0.9% 1,000 ML IV PRN ×2 (04:37→17:06)
[2019-07-05 05:21] LABS: CALCIUM, SERUM 7.8 mg/dL (8.5-10.1); CREATININE 1.2 mg/dL (0.6-1.3); POTASSIUM 3.8 mmol/L (3.5-5.1)
--- NOTE | 2019-07-05 07:00 | NUR ---
RN INITIAL NOTE RECEIVED BEDSIDE REPORT, PATIENT IN BED, AGITATED. INTUBATED WITH ETT 7.10/28. OPENS EYES. WAS LAST GIVEN ATIVAN AT 0400. HAS A RIGHT UA PICC WITH MAX DOSE OF PROPOFOL AT 100 MCG. AND NS AT 100 ML/HR. HAS AN OGT. HAS A BINGHAM CATH. ON BEDSIDE MONITOR, ST AT 110. WILL GIVE ATIVAN ORDERED. WILL CONTINUE TO MONITOR CLOSELY
[2019-07-05] MEDS: LEVOTHYROXINE SODIUM 75 MCG TABLET PO SCH (07:31)
[2019-07-05] MEDS: MEROPENEM 1 G in IV NS 0.9% 100 ML IV SCH ×2 (08:28→20:17)
[2019-07-05] MEDS: PANTOPRAZOLE 40 MG VIAL IV SCH (08:28)
[2019-07-05] MEDS: VANCOMYCIN 1.5 GM in IV D5W 500 ML IV SCH ×2 (08:34→14:22)
--- NOTE | 2019-07-05 08:35 | NUR ---
RN NOTE VANCO TROUGH WAS 25 THIS AM. WILL NOT ADMINISTER VANCOMYCIN IV
[2019-07-05 09:11] LABS: *WEST NILE VIRUS IgG, CSF Positive (Negative)
[2019-07-05 09:33] LABS: BASOPHILS # (AUTO) 0.1 /CMM (0.0-0.2); BASOPHILS % (AUTO) 0.5 % (0.0-2.0); EOSINOPHILS % (AUTO) 3.5 % (0.0-6.0); HEMATOCRIT 36 % (39-51); LYMPHOCYTES # (AUTO) 0.5 /CMM (0.8-4.8); MEAN CORPUSCULAR HGB CONC 34 g/dl (31.0-36.0); MEAN CORPUSCULAR VOLUME 89 fL (80-96); MONOCYTES # (AUTO) 0.6 /CMM (0.1-1.30); MONOCYTES % (AUTO) 5.1 % (2.0-12.0); NEUTROPHILS # (AUTO) 9.9 /CMM (1.8-8.9); NEUTROPHILS % (AUTO) 86.9 % (43.0-81.0); PLATELET COUNT (AUTO) 178 /CMM (150-450); RED BLOOD CELL COUNT(AUTO) 4.01 MIL/uL (4.5-6.0); WHITE BLOOD COUNT (AUTO) 11.4 K/uL (4.3-11.0)
[2019-07-05 11:07] LABS: *WEST NILE VIRUS IgM, CSF Negative (Negative)
--- NOTE | 2019-07-05 11:32 | NUR ---
RN NOTE PER LUZ MARIA BRITO TO START OGT FEEDING WITH RD RECOMMENDATION.
--- NOTE | 2019-07-05 13:12 | NUR ---
PT RECEIVED ORALLY INTUBATED ON MECHANICAL VENT W/ SETTINGS PER MD. VENT IN RED OUTLET, VENT ALARMS CHECKED AND AUDIBLE, AMBUBAG AT BEDSIDE. PT SX'ED AND LAVAGED PRN. BS EQUAL AND DIMINISHED. ETT TUBE SECURED, PATENT, CLEAN AND DRY. ABG HELD PER DR. BECKETT. NO RESP DISTRESS NOTED. PLAN IS TO CONTINUE CARE UNDER CURRENT MD ORDERS AND MONITOR FOR CHANGES. Addendum: 07/05/19 at 1313 by ZAMZAM EPPERSON RT Amended: Links added.
--- NOTE | 2019-07-05 14:25 | NUR ---
RN NOTE PER PHARMACY, OK TO GIVE VANCO AT THIS TIME EVEN WITH THE TROUGH OF 25. THEY SAID THE BLOOD WAS DRAWN TOO EARLY THIS AM
[2019-07-05] MEDS: JEVITY 1.2 CAL 1,000 ML BOTTLE GT PRN (14:36)
--- NOTE | 2019-07-05 17:00 | NUR ---
RN NOTE DECREASING PROPOFOL, PATIENT IS CALMER. NO AGITATION NOTED. HR AT 96, RR 28, BP AT 90/54
--- NOTE | 2019-07-05 18:44 | NUR ---
RN CLOSING NOTE PATIENT IN BED, SEDATED WITH PROPOFOL OF 90 MCG. ON ETT 7.10/29. SATURATING WELL AT 96%. ALL MEDS GIVEN. ALL NEEDS MET. REPOSITIONED PER PROTOCOL. ON BILATERAL WRIST RESTRAINTS TO BE RENEWED AT 0100. HAS OGT WITH JEVITY 1.2 AT 20ML/HR, GOAL OF 40 ML/HR. HAS A RIGHT UA PICC WITH NS AT 100 ML/HR. ATIVAN LAST GIVEN AT 1200. HAS A BINGHAM CATH WITH TEA COLORED URINE. BED LOCKED AND IN LOWEST POSITION. WILL ENDORSE TO NOC SHIFT FOR RENAY
[2019-07-05] MEDS: ACETAMINOPHEN 650 MG/20.3 ML UDC NG PRN (19:21)
--- NOTE | 2019-07-05 19:30 | NUR ---
CONVEYOR OPERATOR INITIAL SHIFT NOTES RECEIVED PATIENT ORALLY INTUBATED, ON MECHANICAL VENTILATOR, TOLERATING FAIRLY. PATIENT STILL AGITATED DESPITE BEING ON MAX DOSE OF PROPOFOL DRIP, WILL ADMINISTER ATIVAN AND TYLENOL FOR AGITATION AND PAIN. BINGHAM CATHETER PATENT AND INTACT, DRAINING GREENISH/TEA COLORED URINE WITH SEDIMENTS VIA GRAVITY. BEDSIDE TELEMETRY MONITORING SHOWS SINUS TACHYCARDIA, HR CURRENTLY 137 BPM BILATERAL SOFT WRIST RESTRAINTS IN PLACE FOR SAFETY. WILL MONITOR CLOSELY
[2019-07-05] MEDS: ENOXAPARIN SODIUM 40 MG/0.4 ML DISP.SYRIN SQ SCH (20:18)
[2019-07-06] VITALS (58 sets, daily range): BP systolic 75–149; BP diastolic 45–94
[2019-07-06] MEDS: IPRATROPIUM NEB FS 0.5 MG/2.5 ML AMPUL.NEB NEB SCH ×7 (00:21→23:23)
[2019-07-06] MEDS: PROPOFOL 100 ML IV PRN ×13 (01:22→23:50)
[2019-07-06] MEDS: IV NS 0.9% 1,000 ML IV PRN ×2 (02:55→17:33)
[2019-07-06] MEDS ORDERED: VANCOMYCIN 1.5 GM in IV D5W 500 ML IV SCH (03:00)
--- NOTE | 2019-07-06 04:56 | NUR ---
PT RECEIVED ORALLY INTUBATED WITH NOTED SETTING. ETT PATENT AND SECURE VIA ANCHOR FAST. FINISHING PAN OPERATOR NOTED. PT TOLERATING SETTING WELL. BILATERAL BS NOTED. NO SOB NOTED ON SHIFT. VENT TO RED OUTLET AND ALARMS SET AND AUDIBLE. Addendum: 07/06/19 at 0457 by KRYSTA NICHOLE RT Amended: Links added.
[2019-07-06 05:06] LABS: BASOPHILS % (AUTO) 0.3 % (0.0-2.0); EOSINOPHILS % (AUTO) 2.8 % (0.0-6.0); HEMATOCRIT 37 % (39-51); HEMOGLOBIN 13.2 g/dL (13.5-17.5); LYMPHOCYTES # (AUTO) 0.7 /CMM (0.8-4.8); LYMPHOCYTES % (AUTO) 4.4 % (20.0-44.0); MEAN CORPUSCULAR HGB CONC 35 g/dl (31.0-36.0); MEAN CORPUSCULAR VOLUME 89 fL (80-96); MONOCYTES # (AUTO) 0.7 /CMM (0.1-1.30); MONOCYTES % (AUTO) 4.4 % (2.0-12.0); NEUTROPHILS # (AUTO) 13.5 /CMM (1.8-8.9); NEUTROPHILS % (AUTO) 88.1 % (43.0-81.0); PLATELET COUNT (AUTO) 213 /CMM (150-450); RED BLOOD CELL COUNT(AUTO) 4.22 MIL/uL (4.5-6.0); WHITE BLOOD COUNT (AUTO) 15.4 K/uL (4.3-11.0)
[2019-07-06 05:16] LABS: CALCIUM, SERUM 7.6 mg/dL (8.5-10.1); CREATININE 1.1 mg/dL (0.6-1.3); POTASSIUM 3.9 mmol/L (3.5-5.1)
--- NOTE | 2019-07-06 07:00 | NUR ---
TECHNICAL INSTRUCTOR COURSE DEVELOPER NOTES PATIENT REMAINS ORALLY INTUBATED ON MECHANICAL VENTILATION, CONTINUES ON DIPRIVAN DRIP @ 100MCG/KG/MIN. PATIENT STILL WITH PERIODS OF AGITATION WHEN TOUCHED OR MOVED/REPOSITIONED, ATIVAN ADMINISTERED ONCE DURING SHIFT. WILL ENDORSE THE PATIENT TO THE AM SHIFT NURSE FOR CONTINUITY OF CARE
[2019-07-06] MEDS: LEVOTHYROXINE SODIUM 75 MCG TABLET PO SCH (07:55)
[2019-07-06 08:33] LABS: ABG OXYGEN SATURATION 97.1 % (92.0-98.5); ABG PCO2 33.6 mmHg (35.0-45.0); ABG PH 7.304 (7.350-7.450); AaDO2 206.7 mmHg; COHb 0.3 % (0.5-1.5); MetHb 0.6 % (0.0-1.5); O2Hb 96.2 % (94.0-97.0); PEEP,BG 0 cm H2O; SITE, ABG Right Radial; VT, ABG 600 mL
--- NOTE | 2019-07-06 09:11 | NUR ---
VENT CHANGES BELOW PER DR. BECKETT: VT 700 ML Addendum: 07/06/19 at 0911 by JESSICA GEIGER RT Amended: Links added.
[2019-07-06] MEDS: PANTOPRAZOLE 40 MG VIAL IV SCH (09:35)
[2019-07-06] MEDS: MEROPENEM 1 G in IV NS 0.9% 100 ML IV SCH ×2 (09:35→20:34)
--- NOTE | 2019-07-06 09:45 | NUR ---
RN NOTES RECEIVED PATIENT, SEDATED WITH DIPRIVAN DRIP AT 100MCG/MIN. INTUBATED WITH ETT 7.5 AT 25 CM ON THE LIP. TACHYPNEIC. SATING AT 96% ON CURRENT VENT SETTINGS. SINUS TACHY ON THE MONITOR WITH HR ON THE 12Os. PATIENT DIAPHORETIC. AFEBRILE AT 98.8. SUCTIONED FOR AIRWAY PATENCY, SECRETION NOTED TO BE THICK. OGT IN PLACEND SECURE. PLACEMENT VERIFIED WITH AUSCULTATION. WITH ONGOING GTF AT 20CC/HR. . PICC LINE ON THE DORY IN PLACE, DRESSING CLEAN AND INTACT WITH ONGOING IVF OF NS AT 100CC /HR. BILATERAL SOFT RESTRAINTS ON, REMOVED AND REPLACED TO CHECK FOR SKIN INTEGRITY, SKIN INTACT, NO SKIN BREAKDOWN NOTED AT THIS TIME. BINGHAM CATHETER IN PLACE AND DRAINING VIA GRAVITY TO GREENISH OUTPUT. HOB KEPT ELEVATED. BED IN LOW AND LOCKED POSITION. CALL LIGHT WITHIN REACH. WILL CONTINUE TO MONITOR PATIENT ACCORDINGLY
[2019-07-06] MEDS: LORAZEPAM INJ 2 MG/ML VIAL IV PRN ×3 (11:20→23:55)
[2019-07-06 13:07] LABS: *CRYPTOCOCCUS AG, CSF Negative (Negative)
--- NOTE | 2019-07-06 19:15 | NUR ---
RN NOTES ENDORSED PATIENT FOR CONTINUITY OF CARE. NOT ON ANY FORM OF DISTRESS. STILL SEDATED WITH DIPRIVAN AT 100MCG/MIN. TOLERATING CURRENT VENT SETTING. NS STILL RUNNING AT 100CC/HR. SAFETY MEASURES IN PLACE. CALL LIGHT WITHIN REACH
[2019-07-06] MEDS: ACETAMINOPHEN 650 MG/20.3 ML UDC NG PRN (20:32)
[2019-07-06] MEDS: ENOXAPARIN SODIUM 40 MG/0.4 ML DISP.SYRIN SQ SCH (21:03)
[2019-07-07] VITALS (29 sets, daily range): BP systolic 74–133; BP diastolic 39–87
--- NOTE | 2019-07-07 | NUR ---
MRI SPECIAL PROCEDURES TECHNOLOGIST NOTES PATIENT VERY AGITATED DESPITE THE TITRATION OF PROPOFOL TO 100MCG/KG/MIN. ATIVAN 2MG IV PUSH ADMINISTERED. WILL MONITOR CLOSELY
[2019-07-07] MEDS: PROPOFOL 100 ML IV PRN ×13 (01:39→23:01)
[2019-07-07] MEDS: VANCOMYCIN 1 GM in IV D5W 250 ML IV SCH ×2 (03:06→16:01)
[2019-07-07] MEDS: IPRATROPIUM NEB FS 0.5 MG/2.5 ML AMPUL.NEB NEB SCH ×5 (03:42→23:28)
[2019-07-07] MEDS: LORAZEPAM INJ 2 MG/ML VIAL IV PRN ×2 (03:47→15:16)
[2019-07-07 04:17] LABS: BASOPHILS % (AUTO) 0.2 % (0.0-2.0); EOSINOPHILS % (AUTO) 3.1 % (0.0-6.0); HEMATOCRIT 33 % (39-51); HEMOGLOBIN 12.6 g/dL (13.5-17.5); LYMPHOCYTES # (AUTO) 0.7 /CMM (0.8-4.8); LYMPHOCYTES % (AUTO) 4.9 % (20.0-44.0); MEAN CORPUSCULAR HGB CONC 38 g/dl (31.0-36.0); MEAN CORPUSCULAR VOLUME 89 fL (80-96); MONOCYTES # (AUTO) 0.3 /CMM (0.1-1.30); MONOCYTES % (AUTO) 2.2 % (2.0-12.0); NEUTROPHILS # (AUTO) 13.5 /CMM (1.8-8.9); NEUTROPHILS % (AUTO) 89.6 % (43.0-81.0); PLATELET COUNT (AUTO) 252 /CMM (150-450); RED BLOOD CELL COUNT(AUTO) 3.72 MIL/uL (4.5-6.0); WHITE BLOOD COUNT (AUTO) 15.1 K/uL (4.3-11.0)
[2019-07-07 04:46] LABS: CALCIUM, SERUM 6.4 mg/dL (8.5-10.1); CREATININE 1.3 mg/dL (0.6-1.3); POTASSIUM 3.9 mmol/L (3.5-5.1)
[2019-07-07] MEDS: IV NS 0.9% 1,000 ML IV PRN ×2 (05:46→15:15)
--- NOTE | 2019-07-07 07:00 | NUR ---
ANTITANK ASSAULT GUNNER CLOSING NOTES PATIENT REMAINS ORALLY INTUBATED, SEDATED ON DIPRIVAN DRIP @ 100MCG/KG/MIN. PATIENT AT TIMES AGITATED DESPITE THE MAX DOSE OF PROPOFOL, ATIVAN ADMINISTERED TWICE DURING SHIFT, EFFECTIVE. WILL ENDORSE THE PATIENT TO THE AM SHIFT NURSE FOR CONTINUITY OF CARE
--- NOTE | 2019-07-07 07:30 | NUR ---
RN NOTES RECEIVED PATIENT BACK FROM SCHOOL PSYCHOLOGY SPECIALIST NURSE, PATIENT STILL SEDATED WITH DIPRIVAN AT 100MCG/MIN. PATIENT NOT ON ANY FORM OF DISTRESS. TOLERATING CURRENT VENT SETTINGS. HR ON THE 103 AT THIS TIME. AFEBRILE. IVF AND GTF INFUSING WELL. HOB ELEVATED WITH SAFETY MEASURES IN PLACE. CALL LIGHT WITHIN REACH. WILL CONTINUE TO MONITOR PATIENT ACCORDINGLY
[2019-07-07] MEDS: PANTOPRAZOLE 40 MG VIAL IV SCH (09:04)
[2019-07-07] MEDS: LEVOTHYROXINE SODIUM 75 MCG TABLET PO SCH (09:04)
[2019-07-07] MEDS: MEROPENEM 1 G in IV NS 0.9% 100 ML IV SCH ×2 (09:04→21:02)
[2019-07-07] MEDS: JEVITY 1.2 CAL 1,000 ML BOTTLE GT PRN (09:05)
[2019-07-07 09:22] LABS: ABG BASE EXCESS -6.2 mmol/L; ABG OXYGEN SATURATION 97.2 % (92.0-98.5); ABG PCO2 37.9 mmHg (35.0-45.0); ABG PH 7.324 (7.350-7.450); ABG PO2 113.5 mmHg (75.0-100.0); AaDO2 200.4 mmHg; COHb 0.2 % (0.5-1.5); MetHb 0.8 % (0.0-1.5); O2Hb 96.2 % (94.0-97.0); SITE, ABG Right Radial; VT, ABG 700 mL
--- NOTE | 2019-07-07 19:00 | NUR ---
RECEIVED PATIENT ORALLY INTUBATED TOT HE VENTILATOR ON AC MODE, NOT IN ANY RESPIRATORY DISTRESS BUT BREATHING DEEP AND SLIGHTLY LABORED WHEN SLIGHTLY AWAKENS.ON PROPOFOL DRIP FOR SEDATION RASS -3 , GRIMACES TO PAIN , + STRONG COUGH WHEN SUCTIONED, + GAG. MOVES AND LIFTS BOTH LOWER EXTREMITIES, WITHDRAWS BOTH ARMS TO PAIN,MAINTAINED ON BILATERAL SOFT WRIST RESTRAINTS . PICC LINE @ DORY, OGT WITH ON GOING TUBE FEEDING,ASPIRATION PRECAUTION OBSERVED.COMFORT CARE DONE.
--- NOTE | 2019-07-07 20:13 | NUR ---
PT RCVD ORALLY INTUBATED WITH 7.5 ETT SECURED @ 24 CM ON VENT WITH NOTED SETTINGS. ALARMS ARE SET AND AUDIBLE. EQUAL CHEST RISE NOTED. VENT PLUGGED INTO RED OUTLET. LABORER BRUSH CLEARING DONE. BREATHING TX GIVEN . NO ADVERSE REACTION NOTED. PT. AMBER. WELL AND NO DISTRESS NOTED. SUCTIONED DONE PRN. AMBU BAG @ BEDSIDE. WILL CONTINUE TO MONITOR THE PT T/O SHIFT.
[2019-07-07] MEDS: ENOXAPARIN SODIUM 40 MG/0.4 ML DISP.SYRIN SQ SCH (21:05)
--- NOTE | 2019-07-07 22:00 | NUR ---
STATUS UNCHANGED,SEDATED BUT OCCASIONALLY GETS AGITATED,KICKING LEGS AND COUGHING.
[2019-07-08] VITALS (30 sets, daily range): BP systolic 87–188; BP diastolic 53–108
--- NOTE | 2019-07-08 | NUR ---
STARTING TO GET MORE AND MORE AGITATED. 0025 VERY AGITATED, TACHYCARDIC PP=[phone], TACHYPNEIC WITH VERY LABORED BREATHING RR= 27, WITH PIP=61,RM=296/88. 0035 REMIANS VERY AGITATED,ATIVAN 2 MG . IVP GIVEN.
[2019-07-08] MEDS: LORAZEPAM INJ 2 MG/ML VIAL IV PRN ×6 (00:35→21:01)
[2019-07-08] MEDS: PROPOFOL 100 ML IV PRN ×14 (00:41→21:31)
--- NOTE | 2019-07-08 02:00 | NUR ---
STILL AGITATED ON AND OFF DESPITE MAX DOSE PROPOFOL
[2019-07-08] MEDS: IV NS 0.9% 1,000 ML IV PRN ×3 (02:13→14:48)
[2019-07-08] MEDS: VANCOMYCIN 1 GM in IV D5W 250 ML IV SCH ×2 (02:31→14:47)
[2019-07-08] MEDS: IPRATROPIUM NEB FS 0.5 MG/2.5 ML AMPUL.NEB NEB SCH ×6 (03:29→23:28)
[2019-07-08 04:46] LABS: BASOPHILS % (AUTO) 0.3 % (0.0-2.0); HEMATOCRIT 37 % (39-51); HEMOGLOBIN 13.2 g/dL (13.5-17.5); LYMPHOCYTES # (AUTO) 0.4 /CMM (0.8-4.8); LYMPHOCYTES % (AUTO) 3.6 % (20.0-44.0); MEAN CORPUSCULAR HGB CONC 35 g/dl (31.0-36.0); MEAN CORPUSCULAR VOLUME 89 fL (80-96); MONOCYTES # (AUTO) 0.4 /CMM (0.1-1.30); MONOCYTES % (AUTO) 3.4 % (2.0-12.0); NEUTROPHILS % (AUTO) 88.7 % (43.0-81.0); PLATELET COUNT (AUTO) 257 /CMM (150-450); WHITE BLOOD COUNT (AUTO) 12.4 K/uL (4.3-11.0)
[2019-07-08 05:01] LABS: CALCIUM, SERUM 7.4 mg/dL (8.5-10.1); POTASSIUM 3.6 mmol/L (3.5-5.1)
[2019-07-08 05:09] LABS: CREATININE 1.1 mg/dL (0.6-1.3)
--- NOTE | 2019-07-08 07:00 | NUR ---
STATUS UNCHANGED,STILL ON PROPOFOL DRIP,STILL AGITATED ON AND OFF.REPORT GIVEN TO DAMIAN SAUCEDO
--- NOTE | 2019-07-08 07:05 | NUR ---
RN NOTES RECEIVED PT ON BED, ORALLY INTUBATED, AND SEDATED, ON DIPRIVAN AT 100MCG/KG/MIN RUNNING , TOLERATING CURRENT VENT SETTING WELL, NO DISTRESS NOTED AT THIS TIME, ON TELE ST HR IN 100'S , NS AT 100CC/HR RUNNING VIA R UPPER ARM PICC LINE SITE CLEAN, DRY AND INTACT, TF AT 20CC/HR RUNNING VIA OGT , NO RESIDUAL NOTED, ZACHERY DRINING TO GRAVITY, SR UPx 3, CALL LIGHT WITHIN EASY REACH, BED LOCKED AND IN LOWEST POSITION, CONTINUE TO MONITOR .
[2019-07-08] MEDS: MEROPENEM 1 G in IV NS 0.9% 100 ML IV SCH ×2 (08:25→21:23)
[2019-07-08] MEDS: LEVOTHYROXINE SODIUM 75 MCG TABLET PO SCH (08:25)
[2019-07-08] MEDS: PANTOPRAZOLE 40 MG VIAL IV SCH (08:25)
--- NOTE | 2019-07-08 14:00 | NUR ---
RN NOTES DR BECKETT NOTIFED REGARDING TRIGLYCERIDE LEVEL , NEW ORDER RECEIVED .
[2019-07-08] MEDS: JEVITY 1.2 CAL 1,000 ML BOTTLE GT PRN (14:53)
[2019-07-08 15:52] LABS: ABG BASE EXCESS -6.3 mmol/L; ABG PCO2 35.8 mmHg (35.0-45.0); ABG PH 7.338 (7.350-7.450); ABG PO2 107.6 mmHg (75.0-100.0); AaDO2 136.4 mmHg; COHb 0.3 % (0.5-1.5); MetHb 0.6 % (0.0-1.5); O2Hb 96.1 % (94.0-97.0); PEEP,BG 5 cm H2O; SITE, ABG Right Femoral; VT, ABG 650 mL
[2019-07-08] MEDS ORDERED: DOSE PER PHARMACY (MD SPECIFY MEDICATION) 1 EA XX PRN (16:00)
[2019-07-08] MEDS: MIDAZOLAM HCL 100 MG in IV NS 0.9% 80 ML IV PRN (17:33)
[2019-07-08] MEDS: FENTANYL CITRATE IV 1,250 MCG in IV NS 0.9% 225 ML IV PRN ×3 (17:49→18:23)
--- NOTE | 2019-07-08 18:45 | NUR ---
RN NOTES PT REMAINS INTUBATED, TOLERATING VENT SETTING WELL, DEPRIVAL AT 40MCG/KG/MIN AT THIS TIME, WILL ENDOSE TO PRESS PULLER NURSE FOR CONTINUITY OF CARE ,
--- NOTE | 2019-07-08 19:25 | NUR ---
ICU/RN NOTES PATIENT RECEIVED IN BED, SEVERELY AGITATED, ON DIPRIVAN 40MCG/HR, VERSED 0.5MG/HR AND FENTANYL 25MCG/HR, STILL VERY AGITATED, INTUBATED WITH PRESCRIBED VENT SETTINGS, NO S/S OF ACUTE DISTRESS, HYPERVENTILATING AT THE RATE OF 30-32 BREATHS PER MINUTE. FEEDING TUBE IN PLACE, PATENT, CONNECTED TO FEEDING ORDERED, TOLERATING WELL, NO RESIDUAL AT THIS TIME, BILATERAL WRIST RESTRAINT IN PLACE, HOB ELEVATED TO SEMI HERRON POSITION. ISOLATION PRECAUTIONS MAINTAINED. SAFETY MAINTAINED, BED AT THE LOWEST, LOCKED POSITION, WILL CONTINUE TO MONITOR PER PLAN OF CARE.
--- NOTE | 2019-07-08 21:10 | NUR ---
patient with Severe agitation, moving around, attempting to pull line, despite being on versed, fentanyl and propofol. PRN Ativan given as ordered. Will continue to monitor
[2019-07-08] MEDS: ENOXAPARIN SODIUM 40 MG/0.4 ML DISP.SYRIN SQ SCH (21:24)
[2019-07-09] VITALS (50 sets, daily range): BP systolic 106–188; BP diastolic 53–126
--- NOTE | 2019-07-09 00:10 | NUR ---
patient again Severely agitated , moving around, attempting to pull line, despite being on versed, fentanyl and propofol. PRN Ativan given as ordered. Will continue to monitor
[2019-07-09] MEDS: LORAZEPAM INJ 2 MG/ML VIAL IV PRN ×6 (00:15→14:31)
--- NOTE | 2019-07-09 00:25 | NUR ---
PRN Ativan with effectiveness, Agitation reduced, patient Calm
[2019-07-09] MEDS: IV NS 0.9% 1,000 ML IV PRN ×2 (01:16→11:52)
[2019-07-09] MEDS: IV NS 0.9% 250 ML IV PRN (01:33)
[2019-07-09] MEDS: IPRATROPIUM NEB FS 0.5 MG/2.5 ML AMPUL.NEB NEB SCH ×6 (03:33→23:07)
[2019-07-09] MEDS: VANCOMYCIN 1 GM in IV D5W 250 ML IV SCH ×2 (03:55→20:36)
[2019-07-09 05:07] LABS: BASOPHILS % (AUTO) 0.2 % (0.0-2.0); CALCIUM, SERUM 7.8 mg/dL (8.5-10.1); CREATININE 0.9 mg/dL (0.6-1.3); HEMATOCRIT 32 % (39-51); HEMOGLOBIN 10.9 g/dL (13.5-17.5); LYMPHOCYTES # (AUTO) 0.5 /CMM (0.8-4.8); LYMPHOCYTES % (AUTO) 3.8 % (20.0-44.0); MEAN CORPUSCULAR HGB CONC 35 g/dl (31.0-36.0); MEAN CORPUSCULAR VOLUME 87 fL (80-96); MONOCYTES # (AUTO) 0.7 /CMM (0.1-1.30); MONOCYTES % (AUTO) 5.1 % (2.0-12.0); NEUTROPHILS # (AUTO) 12.5 /CMM (1.8-8.9); NEUTROPHILS % (AUTO) 87.9 % (43.0-81.0); PLATELET COUNT (AUTO) 384 /CMM (150-450); POTASSIUM 3.8 mmol/L (3.5-5.1); RED BLOOD CELL COUNT(AUTO) 3.63 MIL/uL (4.5-6.0); WHITE BLOOD COUNT (AUTO) 14.2 K/uL (4.3-11.0)
[2019-07-09] MEDS: ACETAMINOPHEN 650 MG/20.3 ML UDC NG PRN (07:13)
--- NOTE | 2019-07-09 07:20 | NUR ---
ICU/RN NOTES PATIENT REMAINED IN BED, STILL VERY AGITATED. PATIENT OFF DIPRIVAN, VERSED 7MG/HR AND FENTANYL 10MCG/HR, PRN ATIVAN WAS USED EVERY 2 HOURS TO CALM THE PATIENT DOWN. STILL VERY AGITATED, PATIENT WAS RUNNING ELEVATED TEMP 100.6, COOLING MEASURES INITIATED, PRN TYLENOL GIVEN, NO S/S OF ACUTE DISTRESS, HYPERVENTILATING AT THE RATE OF 30-32 BREATHS PER MINUTE. FEEDING TUBE IN PLACE, PATENT, CONNECTED TO FEEDING ORDERED, TOLERATING WELL, NO RESIDUAL AT THIS TIME, BILATERAL WRIST RESTRAINT IN PLACE, HOB ELEVATED TO SEMI HERRON POSITION. ISOLATION PRECAUTIONS MAINTAINED. SAFETY MAINTAINED, BED AT THE LOWEST, LOCKED POSITION. ENDORSE TO AM SHIFT NURSE FOR RENAY.
--- NOTE | 2019-07-09 07:45 | NUR ---
CHEST PAIN COORDINATOR: pt.is agitating, restless, with open eyes, on wrists restraints, unable to follow commands, tachypneic RR 30-36, on AC mode, FiO2 40%, O2sat on monitor 93-95%, RT updated, ST 100-120, SBP 140-170, on Fentanyl gtt-100mcg/h on BRASS CUTTER pump(equal 1 mcg/kg/m)-19ml/h, max dose 3 mcg/kg/hr per Yung RN report and order, on Versed BRASS CUTTER pump gtt 7 mg/hr(7ml/h) now, SHERYL Barragan reported notified and confirmed ok for max dose 10mg/hr, Diprivan gtt is off, NGTF residual 30 ml, keep HOB over 40, T 98.6, getting Ativan 2 mg IV q2h prn
[2019-07-09] MEDS: LEVOTHYROXINE SODIUM 75 MCG TABLET PO SCH (07:49)
[2019-07-09] MEDS: PANTOPRAZOLE 40 MG VIAL IV SCH (08:07)
[2019-07-09] MEDS: MEROPENEM 1 G in IV NS 0.9% 100 ML IV SCH ×2 (08:11→20:36)
--- NOTE | 2019-07-09 09:05 | NUR ---
TELEGRAPHIC TYPEWRITER OPERATOR CHIEF: is in room, updated with all above, confirmed ok for max dose of Versed 10 mg/hr, Fentanyl 3 mcg/kg/h, ordered: Hydralazine 20 mg iv q4h prn if SBP over 160 DBP over 100, see new orders
[2019-07-09] MEDS: FENTANYL CITRATE IV 1,250 MCG in IV NS 0.9% 225 ML IV PRN (10:57)
[2019-07-09] MEDS: MIDAZOLAM HCL 100 MG in IV NS 0.9% 80 ML IV PRN ×2 (11:20→22:19)
--- NOTE | 2019-07-09 11:30 | NUR ---
COLLEGE SERVICE OFFICER: is in room, updated with pt.current condition, VS, vent setting, O2sat., suction amount, IVF, NGTF, drips, sedation level, pt.is still agitating with touch/suction, but more rest since 07.00, Versed increased to 9 mg/hr to suction well and change ETT tie, is agree, ST 110-115, SBP below 160
[2019-07-09] MEDS: hydrALAZINE HCL IV 20 MG VIAL IV PRN (13:13)
--- NOTE | 2019-07-09 13:36 | NUR ---
CLOTH HAND: pt is severely agitating, biting ETT, O2sat. 92-94%, RR 30-32, ST, SBP 162, Ativan 2mg, Hydralazine 20 mg iv given, Fentanyl increased to 2.5 mcg/kg/h (250 mcg/hr)
--- NOTE | 2019-07-09 13:50 | NUR ---
SUPERVISOR FLOOR ASSEMBLY: pt is still agitating, restless, coughing, bitting ETT, increased Fentanyl to 3.0 mcg/kg/h (300mcg/h), Versed to 10 mg/hr, pharmacist Florinda is in room, updated with all drips rate, concentration, current pt status
[2019-07-09] MEDS ORDERED: FENTANYL CITRAT IV 2,500 MCG in IV NS 0.9% 250 ML IV PRN (14:00)
--- NOTE | 2019-07-09 14:15 | NUR ---
LINUX UNIX ENGINEER: Fentanyl dose 3 mcg/kg/h now, paged per eMAR med request: contact MD for dose greater than 3 mcg/kg/h and asked can we go up to 7 mcg/kg/h, answered: titrate for sedation. Edited order placed in. Charge nurse is aware.
--- NOTE | 2019-07-09 14:16 | NUR ---
RETAIL LEADER: per [facility] Fentanyl protocol: loading dose IV 1-2 mcg/kg, infusion dose 25-100 mcg/hr and titrate up to effect. Contact MD for dose grether than 3 mcg/kg/h, write it out as an order. Range 1-3 mcg/kg/h up to 10/kg/h
[2019-07-09] MEDS ORDERED: FENTANYL CITRATE IV 1,250 MCG in IV NS 0.9% 225 ML IV PRN (15:00)
--- NOTE | 2019-07-09 15:43 | NUR ---
ELECTRICAL ENGINEERING TECHNOLOGIST: pt is rest now, Fentanyl 5 mcg/kg/h, Versed 10 mg/h, St 125, BP 145/78, suctioned well, RR 25-27
--- NOTE | 2019-07-09 18:03 | NUR ---
HOUSEKEEPING DIRECTOR: pt is rest now, sedated well, on Versed 10mg/h, Fentanyl 5 mcg/kg/h (500mcg/h), pharmacy was updated again, RR 20-25, O2sat.96-97%, ST 120-125, BP 115/67, suctioned well, NGTF residual WNL, all PM,skin,bedbath care done, IDNP saw pt. before/updated, on wrists restraints, skin is intact
[2019-07-09] MEDS: FENTANYL CITRATE IV 2,500 MCG in IV NS 0.9% 200 ML IV PRN ×2 (18:59→23:33)
--- NOTE | 2019-07-09 19:52 | NUR ---
PT RCVD ORALLY INTUBATED WITH 7.5 ETT SECURED @ 24 CM LIPLINE ON VENT WITH NOTED SETTINGS. ALARMS ARE SET AND AUDIBLE. EQUAL CHEST RISE NOTED. VENT PLUGGED INTO RED OUTLET. PSYCHOLOGY TECH DONE. BREATHING TX GIVEN . NO ADVERSE REACTION NOTED. PT. AMBER. WELL AND NO DISTRESS NOTED. SUCTIONED DONE PRN. AMBU BAG @ BEDSIDE. WILL CONTINUE TO MONITOR THE PT T/O SHIFT.
[2019-07-09] MEDS: ENOXAPARIN SODIUM 40 MG/0.4 ML DISP.SYRIN SQ SCH (21:04)
[2019-07-09] MEDS: JEVITY 1.2 CAL 1,000 ML BOTTLE GT PRN (22:23)
[2019-07-10] VITALS (48 sets, daily range): BP systolic 103–164; BP diastolic 56–129
[2019-07-10] MEDS: IV NS 0.9% 1,000 ML IV PRN (00:23)
[2019-07-10] MEDS: IPRATROPIUM NEB FS 0.5 MG/2.5 ML AMPUL.NEB NEB SCH ×6 (03:11→23:55)
[2019-07-10] MEDS: LORAZEPAM INJ 2 MG/ML VIAL IV PRN ×2 (03:19→08:21)
--- NOTE | 2019-07-10 04:00 | NUR ---
HAD UNEVENTFUL NIGHT MEDICATED FOR ITCHING AND FOR HIGH B/P.VSS,REMAINS IN NSR Addendum: 07/10/19 at 0725 by MEL CONTEH RN ERROR MADE NOTE ON WRONG PT
--- NOTE | 2019-07-10 04:00 | NUR ---
PT CONTINUES ON VENTILATOR ON AC MODE, BREATHING UNLABORED, CONTINUES TO TOLERATE FDG, REMAINS IN ST,CONTINUES TO NEED FENTANYL AND VERSED GTT TO KEEP ,KEEP COMFORTABLE.ATIVAN GIVEN ONCE FOR AGITATION.
[2019-07-10 04:48] LABS: BASOPHILS # (AUTO) 0.1 /CMM (0.0-0.2); BASOPHILS % (AUTO) 0.6 % (0.0-2.0); EOSINOPHILS % (AUTO) 3.1 % (0.0-6.0); HEMATOCRIT 30 % (39-51); LYMPHOCYTES # (AUTO) 0.7 /CMM (0.8-4.8); LYMPHOCYTES % (AUTO) 4.6 % (20.0-44.0); MEAN CORPUSCULAR HGB CONC 33 g/dl (31.0-36.0); MEAN CORPUSCULAR VOLUME 89 fL (80-96); MONOCYTES # (AUTO) 0.9 /CMM (0.1-1.30); NEUTROPHILS # (AUTO) 12.7 /CMM (1.8-8.9); NEUTROPHILS % (AUTO) 85.7 % (43.0-81.0); PLATELET COUNT (AUTO) 402 /CMM (150-450); WHITE BLOOD COUNT (AUTO) 14.8 K/uL (4.3-11.0)
[2019-07-10 04:53] LABS: CALCIUM, SERUM 8.4 mg/dL (8.5-10.1); CREATININE 1.2 mg/dL (0.6-1.3); POTASSIUM 3.8 mmol/L (3.5-5.1)
[2019-07-10] MEDS: FENTANYL CITRATE IV 2,500 MCG in IV NS 0.9% 200 ML IV PRN ×4 (05:14→20:42)
[2019-07-10 05:26] LABS: BAND % (MANUAL) 6 % (0.0-5.0); LYMPHOCYTES % (MANUAL) 4 % (16-48); MONOCYTES % (MANUAL) 4 % (0-11.0); NEUTROPHILS % (MANUAL) 86 (42-76)
[2019-07-10] MEDS: LEVOTHYROXINE SODIUM 75 MCG TABLET PO SCH (06:38)
--- NOTE | 2019-07-10 07:57 | NUR ---
COLD WORKING SUPERVISOR: pt.is sedated with Versed 10 mg/h, Fentanyl 5 mcg/kg/h, rest now, no SOB, RR 20, reactive by touch/suction, suctioned well, can open eyes for seconds, no eyes contact, on wrists restraints, skin is intact, no edema/redness, SR/ST max 110, SBP 100-140, T 98.7, NGTF residual 15ml, IVF NS 100ml/h, I/O +665ml, FiO2 40%, keep HOB over 40
[2019-07-10] MEDS: MEROPENEM 1 G in IV NS 0.9% 100 ML IV SCH ×2 (08:05→20:57)
--- NOTE | 2019-07-10 08:12 | NUR ---
MANAGER PLAY: pt.began very restless after ETT good suction, strong arms,legs activity, coughing, ST 120, O2sat. 88-89%, SOB, Ativan 2 mg IV given
[2019-07-10] MEDS: PANTOPRAZOLE 40 MG VIAL IV SCH (08:20)
--- NOTE | 2019-07-10 08:20 | NUR ---
TELETYPEWRITER OPERATOR: is in room, updated with pt.current condition, neurostatus, sedation level, drips: Versed 10mg/h (max dose), Fentanyl 5 mcg/kg/h (500mcg/h), restraints, VS, O2sat., I/O, IVF NS 100ml/h, all rates, NGTF, Na+149, said: ok to go up to 10 mcg/kg/h (max) of Fentanyl per [facility] protocol/titrate for sedation, d/c IVF
[2019-07-10] MEDS: MIDAZOLAM HCL 100 MG in IV NS 0.9% 80 ML IV PRN ×2 (08:55→18:46)
[2019-07-10 09:34] LABS: ABG BASE EXCESS -5.6 mmol/L; ABG OXYGEN SATURATION 93.2 % (92.0-98.5); ABG PCO2 48.6 mmHg (35.0-45.0); ABG PH 7.262 (7.350-7.450); ABG PO2 73.2 mmHg (75.0-100.0); AaDO2 156.1 mmHg; COHb 0.3 % (0.5-1.5); MetHb 0.1 % (0.0-1.5); O2Hb 92.8 % (94.0-97.0); PEEP,BG 5 cm H2O; SITE, ABG Left Radial; VT, ABG 650 mL
--- NOTE | 2019-07-10 09:46 | NUR ---
DOUBLE BACKER: pt.mother/Hillary called/updated/got POC info
--- NOTE | 2019-07-10 10:20 | NUR ---
SIXTH GRADE TEACHER: is in room, updated with pt.current status, Versed, Fentanyl gtts/rate, ABG, VS, neurostatus, O2sat., suction amount, NGTF, no new order now, RT is aware
--- NOTE | 2019-07-10 11:00 | NUR ---
CHEESE CUTTER: pt. is suctioned well by RT, O2sat. 94-96% now, FiO2 was increased to 50%, no SOB, RR 20-21, ST 100-110, SBP over 100 below 160, pt.is sedated well, rest
--- NOTE | 2019-07-10 11:35 | NUR ---
PRINCIPAL ARCHAEOLOGIST: AIDEE Mayes updated with all above, see new orders
[2019-07-10] MEDS: VANCOMYCIN 1 GM in IV D5W 250 ML IV SCH (14:32)
[2019-07-10] MEDS: ACETAMINOPHEN 650 MG/20.3 ML UDC NG PRN (15:50)
--- NOTE | 2019-07-10 17:45 | NUR ---
PAINTER AND DECORATOR: pt.sedated well with Versed 10mg/h, Fentanyl 5 mcg/kg/h (500 mcg/h), rest, no SOB, no grimacing, can open eyes with suction, suctioned well, on wrists restraints, ST 115-120, SBP over 100 below 150, O2sat 92-96%, NGTF residual WNL, all skin,PM,bedbath care done, no skin breakdown
--- NOTE | 2019-07-10 19:00 | NUR ---
RECEIVED PATIENT ORALLY INTUBATED ON AV MODE TO THE VENTILATOR,SEDATED ON FENTANYL DRIP @ 500 MCG/HR AND VERSED DRIP @ 10 MG/HR INFUSING VIA DORY PICC LINE. RESPONDS TO PAIN,BRIEFLY OPENS EYES TO PAIN, MOVES AND LIFT BOTH LEGS AND WEAKLY MOVES BOTH ARMS.WITH PERIODS OF AGITATION EVEN WITH SEDATION.+EDEMA OF ALL EXTREMITIES. ON TUBE FEEDING VIA NGT AT LOW RATE 20 ML/HR, TOLERATING WELL.aSPIRATIONPRECAUTION IMPLEMENTED.
--- NOTE | 2019-07-10 21:00 | NUR ---
STILL AGITATED WITH FENTANYL DRIP @ 6 MG/HR( 600 MCG/KG/HR),INCREASED TO 600 MCG/KG/HR.WILL CLOSELY MONITOR AND INCREASE NEEDED.
[2019-07-10] MEDS: ENOXAPARIN SODIUM 40 MG/0.4 ML DISP.SYRIN SQ SCH (21:03)
[2019-07-11] VITALS (42 sets, daily range): BP systolic 90–142; BP diastolic 48–86
--- NOTE | 2019-07-11 | NUR ---
status unchanged ,still on and off agitated.maintained on sedation.
[2019-07-11] MEDS: FENTANYL CITRATE IV 2,500 MCG in IV NS 0.9% 200 ML IV PRN ×6 (00:26→22:03)
[2019-07-11] MEDS: IPRATROPIUM NEB FS 0.5 MG/2.5 ML AMPUL.NEB NEB SCH ×5 (03:32→19:19)
[2019-07-11] MEDS: MIDAZOLAM HCL 100 MG in IV NS 0.9% 80 ML IV PRN ×2 (04:02→14:39)
[2019-07-11 05:51] LABS: BASOPHILS # (AUTO) 0.1 /CMM (0.0-0.2); BASOPHILS % (AUTO) 0.7 % (0.0-2.0); HEMATOCRIT 31 % (39-51); HEMOGLOBIN 9.9 g/dL (13.5-17.5); LYMPHOCYTES # (AUTO) 0.8 /CMM (0.8-4.8); LYMPHOCYTES % (AUTO) 5.9 % (20.0-44.0); MEAN CORPUSCULAR HGB CONC 32 g/dl (31.0-36.0); MEAN CORPUSCULAR VOLUME 89 fL (80-96); MONOCYTES # (AUTO) 0.9 /CMM (0.1-1.30); MONOCYTES % (AUTO) 6.6 % (2.0-12.0); NEUTROPHILS % (AUTO) 83.8 % (43.0-81.0); PLATELET COUNT (AUTO) 468 /CMM (150-450); RED BLOOD CELL COUNT(AUTO) 3.44 MIL/uL (4.5-6.0); WHITE BLOOD COUNT (AUTO) 13.1 K/uL (4.3-11.0)
[2019-07-11 05:59] LABS: CALCIUM, SERUM 8.9 mg/dL (8.5-10.1); CREATININE 1.5 mg/dL (0.6-1.3); POTASSIUM 4.2 mmol/L (3.5-5.1)
--- NOTE | 2019-07-11 06:00 | NUR ---
STATUS UNCHANGED.AM CARE DONE. STILL ON VERSED DRIP AND FENTANYL DRIP.
--- NOTE | 2019-07-11 08:00 | NUR ---
DISPOSAL WORKER NOTE PATIENT IN BED , ALL NEEDS ATTENDED .WITH VENT SETTING ORDERED RT AT BEDSIDE , WITH ETT TUBE ORDERED ,RT UPPER ARM PICC LINE IN PLVE ON IVF ORDERED WITH FENTANYL AND VERSED DRIP ORDERED STILL SEDATED ,ON SOFT RESTRAIN ORDERED
[2019-07-11 08:13] LABS: BAND % (MANUAL) 4 % (0.0-5.0); EOSINOPHILS % (MANUAL) 4 % (0-4); LYMPHOCYTES % (MANUAL) 3 % (16-48); MONOCYTES % (MANUAL) 7 % (0-11.0); MYELOCYTES % 5 % (0-0); NEUTROPHILS % (MANUAL) 77 (42-76)
[2019-07-11] MEDS: MEROPENEM 1 G in IV NS 0.9% 100 ML IV SCH ×2 (08:44→21:33)
--- NOTE | 2019-07-11 08:48 | NUR ---
RT RECEIVED PT ORALLY INTUBATED, VENT DEPENDENT W/ ETT 7.5 MARKED @ 24CM LIP, WITH NOTED VENT SETTINGS. SURVEILLANCE INVESTIGATOR DONE AND AIRWAY IS SECURE. VENT ALARMS CHECKED AND AUDIBLE. VENT PLUGGED IN RED OUTLET. AMBU BAG NOTED HOB. SHIV B/S RHONCHI, SX W/ SML TO MOD [facility] SECRETIONS. BREATHING TX GIVEN AND NO ADV REACTION. WILL CONTINUE TO MONITOR T/O SHIFT.
[2019-07-11] MEDS: LEVOTHYROXINE SODIUM 75 MCG TABLET PO SCH (09:29)
[2019-07-11] MEDS: PANTOPRAZOLE 40 MG VIAL IV SCH (09:29)
[2019-07-11] MEDS: VANCOMYCIN 1 GM in IV D5W 250 ML IV SCH (09:45)
[2019-07-11] MEDS: IV 1/2NS 1000 ML 1,000 ML IV PRN ×2 (09:46→22:11)
[2019-07-11] MEDS: ACETAMINOPHEN 650 MG/20.3 ML UDC NG PRN ×2 (12:20→16:31)
--- NOTE | 2019-07-11 13:19 | NUR ---
OPTICAL LAB TECHNICIAN NOTE STILL SEDATED ON FENTANYL DRIP ORDERED AND IVF ORDERED TURN REPOSITION, WILL MONITOR
--- NOTE | 2019-07-11 16:35 | NUR ---
PRINCIPAL CLOUD ARCHITECT NOTE T 101.9 TYLENOL VIA N G TUBE GIVEN PLACEMENT OF NG TUBE CHECKED VIA AUSCULTATION OF AIR WILL F\I , COOLING ,MEASURE PROVIDED
--- NOTE | 2019-07-11 17:06 | NUR ---
APPLICATION SECURITY CONSULTANT NOTE UNABLE TO REMOVE SOFT RESTRAIN, STILL AT RISK TO REMOVE ALL LINES
[2019-07-11] MEDS: JEVITY 1.2 CAL 1,000 ML BOTTLE GT PRN (17:37)
--- NOTE | 2019-07-11 17:41 | NUR ---
LVN LPN NOTE T NOW T 100.1, WILL MONITOR
--- NOTE | 2019-07-11 19:32 | NUR ---
LOCAL GOVERNMENT LEGISLATOR NOTE CONT ON PROPOFOL DRIP ORDERED AND IVF ORDERED, WITH VENT SETTING .WILL CONT TO MONITOR. ENDORSED CARE TO UPCOMING RN Addendum: 07/11/19 at 1934 by MICKIE CONROY RN WRONG CHART
--- NOTE | 2019-07-11 19:34 | NUR ---
ICU RNNOTE CONT CARE ON VENT SETTING WITH N GTUBE FEEDING ,WILL MONITOR, ENDORSED CARE WITH UPCOMING NURSE
[2019-07-11] MEDS: ENOXAPARIN SODIUM 40 MG/0.4 ML DISP.SYRIN SQ SCH (20:28)
[2019-07-11] MEDS ORDERED: VANCOMYCIN 1 GM in IV D5W 250 ML IV SCH (21:00)
[2019-07-11] MEDS ORDERED: MEROPENEM 1 G VIAL IV ONE (21:31)
[2019-07-12] VITALS (32 sets, daily range): BP systolic 89–133; BP diastolic 49–79
[2019-07-12] MEDS: IPRATROPIUM NEB FS 0.5 MG/2.5 ML AMPUL.NEB NEB SCH ×6 (00:25→20:09)
[2019-07-12] MEDS: MIDAZOLAM HCL 100 MG in IV NS 0.9% 80 ML IV PRN ×3 (00:48→20:53)
[2019-07-12] MEDS: FENTANYL CITRATE IV 2,500 MCG in IV NS 0.9% 200 ML IV PRN ×7 (02:03→21:52)
[2019-07-12 05:34] LABS: BASOPHILS # (AUTO) 0.1 /CMM (0.0-0.2); BASOPHILS % (AUTO) 0.6 % (0.0-2.0); EOSINOPHILS % (AUTO) 2.9 % (0.0-6.0); HEMATOCRIT 26 % (39-51); HEMOGLOBIN 8.7 g/dL (13.5-17.5); LYMPHOCYTES # (AUTO) 0.5 /CMM (0.8-4.8); LYMPHOCYTES % (AUTO) 5.2 % (20.0-44.0); MEAN CORPUSCULAR HGB CONC 33 g/dl (31.0-36.0); MEAN CORPUSCULAR VOLUME 90 fL (80-96); MONOCYTES # (AUTO) 0.8 /CMM (0.1-1.30); MONOCYTES % (AUTO) 7.7 % (2.0-12.0); NEUTROPHILS # (AUTO) 8.9 /CMM (1.8-8.9); NEUTROPHILS % (AUTO) 83.6 % (43.0-81.0); PLATELET COUNT (AUTO) 507 /CMM (150-450); RED BLOOD CELL COUNT(AUTO) 2.93 MIL/uL (4.5-6.0); WHITE BLOOD COUNT (AUTO) 10.6 K/uL (4.3-11.0)
[2019-07-12 05:35] LABS: CALCIUM, SERUM 8.4 mg/dL (8.5-10.1); CREATININE 1.9 mg/dL (0.6-1.3); POTASSIUM 4.1 mmol/L (3.5-5.1)
--- NOTE | 2019-07-12 05:50 | NUR ---
RN NOTES PATIENT IN NO APPARENT DISTRESS, BREATHING EVEN AND UNLABORED. VENT SETTING WELL TOLERATED. NO PHYSICAL MANIFESTATION OF PAIN OR DISCOMFORT. SEDATED, ON VERSED AT 10MCG/HR AND ON FENTANYL AT 7MCG/KG/HR, NO ADVERSE EFFECT NOTED. WITH A SLIGHT ELEVATED TEMPERATURE OF 99.6 AT THE BEGINNING OF THE SHIFT AND 99.4 AT 0600. COOLING MEASURES PROVIDED. NEEDS ATTENDED. KEPT CLEAN AND DRY. WILL ENDORSE TO NEXT SHIFT FOR CONTINUITY OF CARE.
--- NOTE | 2019-07-12 07:20 | NUR ---
RN INITIAL NOTES RECEIVED PT INTUBATED, ON VENT. NO RESPIRATORY DISTRESS NOTED. NO SOB NOTED. HOB ELEVATED. NO SIGNS OF PAIN NOTED. LEFT NARE NGT IN PLACE. TOLERATING GTF WELL. NO RESIDUAL NOTED. DORY PICC IN PLACE. IVF INFUSING. ON FENTANYL AT 600MCG/KG/MIN AND VERSED AT 10ML/HR. WILL TITRATE ACCORDINGLY. FC IN PLACE. BLE ELEVATED. REPOSITIONED. WILL CLOSELY MONITOR
[2019-07-12] MEDS: PANTOPRAZOLE 40 MG VIAL IV SCH (08:27)
[2019-07-12] MEDS: LEVOTHYROXINE SODIUM 75 MCG TABLET PO SCH (08:27)
[2019-07-12] MEDS: IV 1/2NS 1000 ML 1,000 ML IV PRN ×2 (10:50→21:07)
[2019-07-12] MEDS: MEROPENEM 1 G in IV NS 0.9% 100 ML IV SCH ×2 (11:24→20:43)
--- NOTE | 2019-07-12 11:30 | NUR ---
RN NOTES 1100 SEEN AND EXAMINED BY DR MEDINA. AWARE OF LAB VALUES, CXR AND US KIDNEY RESULT. PT REMAINS INTUBATED. ON VERSED AND FENTANYL DRIP. IVF INFUSING. TOLERATING GTF WELL. FC IN PLACE. WILL MONITOR 1130 SEEN AND EXAMINED BY DR ROTHMAN. PER , NO WEANING TODAY. PT STILL ON VERSED AND FENTANYL DRIP. NO RESPIRATORY DISTRESS NOTED. NO SOB NOTED. KEPT HOB ELEVATED. WILL CONTINUE TO MONITOR
[2019-07-12 12:32] LABS: CREATININE, URINE 213.2 MG/DL (30.0-125.0); URINE TOTAL PROTEIN 194.9 mg/dL (0-11.9)
[2019-07-12 13:04] LABS: APPEARANCE,URINE SL CLOUDY (CLEAR); BILIRUBIN,URINE NEGATIVE (NEGATIVE); BLOOD, URINE MODERATE Ery/uL (NEGATIVE); COLOR,URINE YELLOW (YELLOW); KETONES,URINE NEGATIVE (NEGATIVE); LEUKOCYTE ESTERASE ,URINE NEGATIVE (NEGATIVE); NITRITE, URINE NEGATIVE (NEGATIVE); PH,URINE 5.5 (5.0-8.0); PROTEIN,URINE 30 mg/dl (NEGATIVE); UGLUCOSE NEGATIVE (NEGATIVE); UROBILINOGEN,URINE 0.2 EU/dL (0.2)
[2019-07-12 13:35] LABS: BACTERIA,URINE 1+ /HPF (None Seen); RBC,URINE 21-50 /HPF (0-2); WBC,URINE NONE SEEN /HPF (0-3)
[2019-07-12 14:13] LABS: EOSINOPHIL,URINE None Seen
--- NOTE | 2019-07-12 14:27 | NUR ---
RT NOTE Pt rec'd orally intubated via ETT sz #7.5 secured @ 24cm at the lipline. Pt on [facility] vent on AC mode settings as charted. pt shows no signs of resp distress or sob. Alarms are set and audible. Vent plugged into red outlet. Will continue to monitor. Addendum: 07/12/19 at 1429 by RODRIGO MCFARLANE RT Amended: Links added.
[2019-07-12] MEDS: JEVITY 1.2 CAL 1,000 ML BOTTLE GT PRN (15:06)
--- NOTE | 2019-07-12 18:27 | NUR ---
RN CLOSING NOTES NO SIGNIFICANT CHANGE NOTED. REMAINS INTUBATED. NO RESPIRATORY DISTRESS NOTED. NO SIGNS OF PAIN NOTED. STILL ON VERSED AND FENTANYL DRIP. IVF INFUSING. KEPT CLEAN AND DRY. REPOSITIONED Q2. KEPT BLE ELEVATED. WILL ENDORSE FOR CONTINUITY OF CARE
--- NOTE | 2019-07-12 19:30 | NUR ---
CHLORINE OPERATOR INITIAL SHIFT NOTES RECEIVED PATIENT ORALLY INTUBATED, ON MECHANICAL VENTILATOR, TOLERATING WELL. ORALLY INTUBATED, ON MECHANICAL VENTILATION, SEDATED ON VERSED DRIP AT 10ML/HR AND FENTANYL DRIP @ 7MCG/KG/HR (68.2ML/HR). BINGHAM CATHETER PATENT AND INTACT, DRAINING GREENISH/TEA COLORED URINE WITH SEDIMENTS VIA GRAVITY. BEDSIDE TELEMETRY MONITORING SHOWS SINUS TACHYCARDIA, HR CURRENTLY 107 BPM. BILATERAL SOFT WRIST RESTRAINTS IN PLACE FOR SAFETY. WILL MONITOR CLOSELY
[2019-07-12] MEDS: ENOXAPARIN SODIUM 40 MG/0.4 ML DISP.SYRIN SQ SCH (20:44)
[2019-07-13] VITALS (25 sets, daily range): BP systolic 95–160; BP diastolic 45–104
[2019-07-13] MEDS: IPRATROPIUM NEB FS 0.5 MG/2.5 ML AMPUL.NEB NEB SCH ×7 (00:25→23:47)
[2019-07-13] MEDS: FENTANYL CITRATE IV 2,500 MCG in IV NS 0.9% 200 ML IV PRN ×6 (01:34→21:47)
[2019-07-13] MEDS: LORAZEPAM INJ 2 MG/ML VIAL IV PRN ×2 (04:05→23:37)
--- NOTE | 2019-07-13 04:05 | NUR ---
RUG RENOVATOR NOTES DESPITE IV FENTANYL DRIP AND IV VERSED DRIP, PATIENT REMAINS AGITATED, COUGHING OVER VENTILATOR. PATIENT SUCTIONED FOR AIRWAY CLEARANCE, BUT REMAINS AGITATED. ATIVAN ADMINISTERED ORDERED
[2019-07-13 04:33] LABS: BASOPHILS # (AUTO) 0.1 /CMM (0.0-0.2); BASOPHILS % (AUTO) 0.6 % (0.0-2.0); EOSINOPHILS % (AUTO) 4.5 % (0.0-6.0); HEMATOCRIT 30 % (39-51); HEMOGLOBIN 9.6 g/dL (13.5-17.5); LYMPHOCYTES # (AUTO) 0.5 /CMM (0.8-4.8); LYMPHOCYTES % (AUTO) 4.6 % (20.0-44.0); MEAN CORPUSCULAR HGB CONC 33 g/dl (31.0-36.0); MEAN CORPUSCULAR VOLUME 91 fL (80-96); MONOCYTES # (AUTO) 0.8 /CMM (0.1-1.30); MONOCYTES % (AUTO) 7.9 % (2.0-12.0); NEUTROPHILS # (AUTO) 8.4 /CMM (1.8-8.9); NEUTROPHILS % (AUTO) 82.4 % (43.0-81.0); PLATELET COUNT (AUTO) 590 /CMM (150-450); RED BLOOD CELL COUNT(AUTO) 3.27 MIL/uL (4.5-6.0); WHITE BLOOD COUNT (AUTO) 10.1 K/uL (4.3-11.0)
[2019-07-13 05:01] LABS: ALBUMIN 1.6 g/dL (3.4-5.0); BILIRUBIN,TOTAL 0.3 mg/dL (0.2-1.0); CALCIUM, SERUM 8.8 mg/dL (8.5-10.1); CREATININE 2.3 mg/dL (0.6-1.3); MAGNESIUM 2.3 mg/dL (1.8-2.4); PHOSPHORUS 4.8 mg/dL (2.5-4.9); POTASSIUM 4.4 mmol/L (3.5-5.1); TOTAL PROTEIN, SERUM 5.6 g/dL (6.4-8.2)
--- NOTE | 2019-07-13 07:00 | NUR ---
RN MENTAL HEALTH CLOSING NOTES PATIENT REMAIN ORALLY INTUBATED ON MECHANICAL VENTILATION, SEDATED ON FENTANYL AND VERSED DRIPS, ALSO WITH 1/2 NS @ 100ML/HR. PATIENT ENDORSED TO THE AM SHIFT NURSE FOR CONTINUITY OF CARE
[2019-07-13] MEDS: MIDAZOLAM HCL 100 MG in IV NS 0.9% 80 ML IV PRN ×2 (07:01→17:20)
[2019-07-13] MEDS: IV 1/2NS 1000 ML 1,000 ML IV PRN ×2 (07:16→21:21)
--- NOTE | 2019-07-13 07:30 | NUR ---
NECKTIE CENTRALIZING MACHINE OPERATOR NOTES WOUND CARE NURSESONALI, AT BEDSIDE FOR EVALUATION
--- NOTE | 2019-07-13 07:30 | NUR ---
RN NOTES RECEIVED PATIENT, SEDATED. orally INTUBATED WITH ETT 7.5 AT 25 CM ON THE LIP. TOLERATING CURRENT VENT SETTINGS. SATING AT 97% ON THE MONITOR. SINUS RHYTHM ON THE MONITOR WITH HR ON THE 80s. AFEBRILE AT 97.9. SUCTIONED FOR AIRWAY PATENCY, SECRETION NOTED TO BE THICK, YELLOWISH IN APPEARANCE. OGT IN PLACED AND SECURED. PLACEMENT VERIFIED WITH AUSCULTATION AND ASPIRATING GASTRIC RESIDUAL, NO RESIDUAL NOTED AT THIS TIME. WITH ONGOING GTF AT 70CC/HR. PICC LINE ON THE DORY IN PLACE, DRESSING CLEAN AND INTACT WITH ONGOING IVF OF NS AT 100CC /HR, VERSED AT 10ML/HR AND FENTANYL AT 680MCG/HR (68ML/HR). BILATERAL SOFT RESTRAINTS ON, REMOVED AND REPLACED TO CHECK FOR SKIN INTEGRITY, SKIN INTACT, NO SKIN BREAKDOWN NOTED AROUND THE RISK AT THIS TIME. PATIENT NOTED WITH EDEMA ON BLE. BINGHAM CATHETER IN PLACE AND DRAINING VIA GRAVITY. HOB KEPT ELEVATED. BED IN LOW AND LOCKED POSITION. CALL LIGHT WITHIN REACH.WILL TURN AND REPOSITION PATIENT PER PROTOCOL AND NEEDED. WILL CONTINUE TO MONITOR ACCORDINGLY
--- NOTE | 2019-07-13 08:05 | NUR ---
TELEPHONE COIN BOX COLLECTOR INITIAL SHIFT NOTES RECEIVED PATIENT ORALLY INTUBATED, ON MECHANICAL VENTILATOR, TOLERATING WELL. ORALLY INTUBATED, ON MECHANICAL VENTILATION, SEDATED ON VERSED DRIP AT 10ML/HR AND FENTANYL DRIP @ 7MCG/KG/HR (68.2ML/HR). BINGHAM CATHETER PATENT AND INTACT, DRAINING GREENISH/TEA COLORED URINE WITH SEDIMENTS VIA GRAVITY. BEDSIDE TELEMETRY MONITORING SHOWS SINUS TACHYCARDIA, HR CURRENTLY 107 BPM. BILATERAL SOFT WRIST RESTRAINTS IN PLACE FOR SAFETY. WILL MONITOR CLOSELY Addendum: 07/13/19 at 0808 by JO WANG RN WRONG TIME NOTE IS FOR 0 ON 07/12/19
--- NOTE | 2019-07-13 08:05 | NUR ---
WOUND CARE CONSULT: PT PRESENTS WITH SACRAL DEEP TISSUE INJURY IN EVOLUTION WHICH EXTENDS TO BUTTOCKS WELL GENERALIZED EDEMA. PT NOTED TO HAVE MULTIPLE CO-MORBIDITIES INCLUDING ACUTE RENAL FAILURE, SEVERE SEPSIS WITH SEPTIC SHOCK, AND PNEUMONIA (CURRENTLY INTUBATED). PT HAS AGITATION AT TIMES PER REPORT. DUE TO MULTIPLE CO-MORBIDITIES, FURTHER SKIN BREAKDOWN MAY BE UNAVOIDABLE. PT IS ON [facility] ISOFLEX LOW AIRLOSS BED. RECOMMENDATIONS MADE FOR SKIN PROTECTION AND WOUND CARE. DISCUSSED WITH NURSING STAFF. IN AGREEMENT WITH PLAN OF CARE. Addendum: 07/13/19 at 0813 by SONALI JEFFREY WNDNU Amended: Links added.
[2019-07-13] MEDS: LEVOTHYROXINE SODIUM 75 MCG TABLET PO SCH (08:47)
[2019-07-13 09:03] LABS: ABG BASE EXCESS -7.7 mmol/L; ABG OXYGEN SATURATION 96.6 % (92.0-98.5); ABG PCO2 44.8 mmHg (35.0-45.0); ABG PH 7.249 (7.350-7.450); ABG PO2 100.5 mmHg (75.0-100.0); AaDO2 205.6 mmHg; COHb 0.3 % (0.5-1.5); MetHb 0.1 % (0.0-1.5); O2Hb 96.2 % (94.0-97.0); PEEP,BG 5 cm H2O; SITE, ABG Right Radial; VT, ABG 650 mL
[2019-07-13] MEDS: MEROPENEM 1 G in IV NS 0.9% 100 ML IV SCH ×2 (09:34→21:18)
[2019-07-13] MEDS: PANTOPRAZOLE 40 MG VIAL IV SCH (09:34)
[2019-07-13] MEDS: JEVITY 1.2 CAL 1,000 ML BOTTLE GT PRN (09:35)
--- NOTE | 2019-07-13 10:00 | NUR ---
RN NOTES SHOWED DR. BECKETT RESULTS OF ABG. ORDERS TO INCREASE TV TO 700 AND RTO CHECK ABG IN 2 HOURS MADE. ORDER CARRIED OUT AND RELAYED TO RT
[2019-07-13 12:18] LABS: ABG BASE EXCESS -7.6 mmol/L; ABG PCO2 37.3 mmHg (35.0-45.0); ABG PH 7.304 (7.350-7.450); ABG PO2 106.3 mmHg (75.0-100.0); AaDO2 208.2 mmHg; MetHb 0.4 % (0.0-1.5); O2Hb 96.6 % (94.0-97.0); PEEP,BG 5 cm H2O; SITE, ABG Right Radial; VT, ABG 700 mL
--- NOTE | 2019-07-13 14:00 | NUR ---
RN NOTES INFORMED DR. MEDINA REGARDING PATIENT NOTED ANASARCA AND IF IVF SHOULD STILL BE CONTINUED. PER THE MD, PATIENT NEEDS FLUID AT THIS TIME DESPITE EDEMA, DECREASED INFUSION RATE OF IV TO 50CC/HR. ORDER READ BACK AND CARRIED OUT
--- NOTE | 2019-07-13 17:49 | NUR ---
RT NOTE: PATIENT RECEIVED ORALLY INTUBATED WITH 7.5 ETT SECURED AT 24 CM MID LIP LINE ON ESPRIT VENT. VENT PLUGGED INTO RED OUTLET. AMBU BAG AT [facility].
--- NOTE | 2019-07-13 19:30 | NUR ---
RN NOTES ENDORSED PATIENT FOR CONTINUITY OF CARE. NOT ON ANY FORM OF DISTRESS. STILL SEDATED WITH VERSED RUNNING AT 68ML/HR AND FENTANYL AT 10ML/HR. NO INDICATION OF PAIN NOTED. GTF INFUSING WELLOVER THE OGT. IVF INFUSING AT 50CC/HR. HOB ELEVATED. SAFETY MEASURES IN PLACE.
--- NOTE | 2019-07-13 19:30 | NUR ---
VENEER SUPERVISOR INITIAL SHIFT NOTES RECEIVED PATIENT ORALLY INTUBATED, ON MECHANICAL VENTILATOR, TOLERATING WELL. SEDATED ON VERSED DRIP AND FENTANYL DRIP, also with 1/2 ns @ 50ml/hr. BINGHAM CATHETER PATENT AND INTACT, DRAINING GREENISH/TEA COLORED URINE WITH SEDIMENTS VIA GRAVITY. BEDSIDE TELEMETRY MONITORING SHOWS SINUS TACHYCARDIA, HR CURRENTLY 105 BPM. BILATERAL SOFT WRIST RESTRAINTS IN PLACE FOR SAFETY. WILL MONITOR CLOSELY
[2019-07-13] MEDS: ENOXAPARIN SODIUM 40 MG/0.4 ML DISP.SYRIN SQ SCH (21:19)
--- NOTE | 2019-07-13 23:37 | NUR ---
FISH HATCHERY ASSISTANT NOTES ETT ANCHOR FAST NOTED TO BE VERY TIGHT ON PATIENT'S FACE. PATIENT AGITATED DESPITE FENTANYL AND VERSED DRIP, ATIVAN ADMINISTERED. WHEN PATIENT PROPERLY SEDATED, RT WAS ABLE TO CHANGE ANCHOR FAST WITH HELP FROM RN WITHOUT ANY ISSUE. WILL MONITOR CLOSELY
[2019-07-14] VITALS (29 sets, daily range): BP systolic 95–144; BP diastolic 55–88
[2019-07-14] MEDS: FENTANYL CITRATE IV 2,500 MCG in IV NS 0.9% 200 ML IV PRN ×6 (01:37→22:25)
[2019-07-14] MEDS: IPRATROPIUM NEB FS 0.5 MG/2.5 ML AMPUL.NEB NEB SCH ×5 (02:51→20:05)
[2019-07-14] MEDS: MIDAZOLAM HCL 100 MG in IV NS 0.9% 80 ML IV PRN ×3 (03:15→23:33)
[2019-07-14] MEDS: LORAZEPAM INJ 2 MG/ML VIAL IV PRN (03:26)
[2019-07-14 04:51] LABS: BASOPHILS # (AUTO) 0.1 /CMM (0.0-0.2); BASOPHILS % (AUTO) 1.1 % (0.0-2.0); EOSINOPHILS % (AUTO) 6.1 % (0.0-6.0); HEMATOCRIT 27 % (39-51); HEMOGLOBIN 8.7 g/dL (13.5-17.5); LYMPHOCYTES # (AUTO) 0.7 /CMM (0.8-4.8); MEAN CORPUSCULAR HGB CONC 33 g/dl (31.0-36.0); MEAN CORPUSCULAR VOLUME 90 fL (80-96); MONOCYTES # (AUTO) 0.6 /CMM (0.1-1.30); MONOCYTES % (AUTO) 8.7 % (2.0-12.0); NEUTROPHILS # (AUTO) 5.5 /CMM (1.8-8.9); NEUTROPHILS % (AUTO) 75.1 % (43.0-81.0); PLATELET COUNT (AUTO) 638 /CMM (150-450); RED BLOOD CELL COUNT(AUTO) 2.98 MIL/uL (4.5-6.0); WHITE BLOOD COUNT (AUTO) 7.4 K/uL (4.3-11.0)
--- NOTE | 2019-07-14 07:00 | NUR ---
FARM IMPLEMENT ENGINE MECHANIC CLOSING NOTES PATIENT REMAINS ORALLY INTUBATED ON MECHANICAL VENT, SEDATED ON FENTANYL AND VERSED DRIP, PROPERLY SEDATED AT THIS TIME, BUT DID REQUIRE 2 EXTRA PUSHES OF ATIVAN THROUGHOUT SHIFT TO KEEP SEDATED. WILL ENDORSE THE PATIENT TO THE AM SHIFT NURSE FOR CONTINUITY OF CARE
--- NOTE | 2019-07-14 07:45 | NUR ---
RN NOTE: Received patient in bed intubated and sedated with ETT 7.5/25cm at the lip line and on mechanical ventilator with 95-99% of O2 saturation with current vent setting. HOB elevated. On droplet precaution for HSV and West Nile Virus. (B) soft wrist restraints noted in placed to prevent self-extubation. Patient on Fentanyl drip and Versed drip for sedation. (R) UA PICC line intact and patent with 0.45% NS @50ml/hr. (L) nare NGT in proper placement and receiving Jevity 1.2 @65ml/hr with no residual noted. Afebrile. Skin warm to touch. Needs anticipated. Patient was noted with intermittent episodes of opening his eyes and episodes of moving his legs. Link catheter in placed with tea color urine. Bed alarmed and locked at all times. Needs anticipated. Dr. Hudson was in the unit and gave him an update regarding the patient's condition and the increasing weight gain due to anasarca. MD aware of the dose set for the Fentanyl drip based on the patient's weight, but did not match the current weight for the patient due to the anasarca. Per MD, continue the same dose of Fentanyl @7mcg/kg/hr. and wait for the pain management MD because per Dr. Hudson he called a pain management MD for the case.
--- NOTE | 2019-07-14 07:47 | NUR ---
WOUND CARE CONSULT: PT SEEN FOR INTACT BLISTERS TO SCROTUM AND RT FLANK AREA. PT NOTED TO HAVE PROFOUND GENERALIZED EDEMA WHICH INCLUDES PENIS AND SCROTAL AREAS. RN TO DISCUSS WITH . DISCUSSED WITH ACQUISITIONS EDITOR. WILL FOLLOW. Addendum: 07/14/19 at 0748 by SONALI JEFFREY WNDNU Amended: Links added.
[2019-07-14 07:51] LABS: ALBUMIN 1.5 g/dL (3.4-5.0); BILIRUBIN,TOTAL 0.3 mg/dL (0.2-1.0); CALCIUM, SERUM 8.3 mg/dL (8.5-10.1); CREATININE 2.3 mg/dL (0.6-1.3); MAGNESIUM 2.4 mg/dL (1.8-2.4); PHOSPHORUS 5.2 mg/dL (2.5-4.9); POTASSIUM 4.8 mmol/L (3.5-5.1); TOTAL PROTEIN, SERUM 5.4 g/dL (6.4-8.2)
[2019-07-14] MEDS: JEVITY 1.2 CAL 1,000 ML BOTTLE GT PRN (08:16)
[2019-07-14] MEDS: LEVOTHYROXINE SODIUM 75 MCG TABLET PO SCH (08:25)
[2019-07-14] MEDS: PANTOPRAZOLE 40 MG VIAL IV SCH (08:26)
[2019-07-14] MEDS: MEROPENEM 1 G in IV NS 0.9% 100 ML IV SCH ×2 (08:26→21:23)
[2019-07-14 08:54] LABS: ABG BASE EXCESS -7.3 mmol/L; ABG OXYGEN SATURATION 97.9 % (92.0-98.5); ABG PCO2 44.2 mmHg (35.0-45.0); AaDO2 162.8 mmHg; COHb 0.3 % (0.5-1.5); MetHb 0.3 % (0.0-1.5); O2Hb 97.3 % (94.0-97.0); PEEP,BG 5 cm H2O; SITE, ABG Left Radial; VT, ABG 700 mL
--- NOTE | 2019-07-14 09:11 | NUR ---
RN NOTE: Dr. Mcgowan spoke with Hillary mother regarding the plan of care of the patient and the current condition of the patient. The mother Hillary spoke with Dr. Mcgowan and consented for the tracheostomy placement. Consent was verified with another nurse over the telephone and consent was signed and filed to the patient's chart.
--- NOTE | 2019-07-14 09:20 | NUR ---
VENT CHANGES BELOW ORDER: AC 26 AND FIO2 DECREASED FROM 50% TO 40% DUE TO PAO2 144 RN NOTIFIED ON CHANGES MADE. Addendum: 07/14/19 at 0921 by JESSICA GEIGER RT Amended: Links added.
--- NOTE | 2019-07-14 14:44 | NUR ---
RN NOTE: Called and spoke with Dr. Gonzalez regarding his order for the Vecuronium drip. Per MD, he wanted to start the Vecuronium drip at 0.8mcg/kg/min with the Fentanyl @6mcg/kg/hr and Versed @10mg/hr. Dr. Gonzalez wanted to do a decrease on the Fentanyl drip 1mcg/kg/hr each day and he said that if the patient is still noted with episodes of agitation the nurse should call Dr. Gonzalez for the adjustment of the dosage of Vecuronium. Will endorse this to the maintenance technician 3rd shift nurse. Patient's mother Hillary was aware of this new MD order.
[2019-07-14] MEDS ORDERED: ROCURONIUM BROMIDE 50 MG/5 ML IV SCH (15:00)
[2019-07-14 15:19] LABS: *SPE A/G RATIO 0.6 (0.7-1.7); *SPE ALBUMIN 1.8 g/dL (2.9-4.4); *SPE ALPHA-1-GLOBULIN 0.4 g/dL (0.0-0.4); *SPE ALPHA-2-GLOBULIN 1.2 g/dL (0.4-1.0); *SPE GLOBULIN, TOTAL 3.2 g/dL (2.2-3.9); *SPE M-SPIKE Not Observed g/dL (Not Observed); *SPEGAMMA GLOBULIN 0.6 g/dL (0.4-1.8)
[2019-07-14] MEDS: D5W IV PRN (15:46)
[2019-07-14] MEDS: VECURONIUM IV PRN (15:46)
--- NOTE | 2019-07-14 15:47 | NUR ---
RN NOTE: Called and spoke with ruth Neely regarding the patient's weight changes daily due to anasarca prior to starting the Vecuronium drip. Per SHERYL Neely she can not do anything about the weight changes. Charge nurse Yong was also aware of this. Vecuronium drip was started per Dr. Gonzalez's order with the presence of Charge nurse Beach at the bedside. IV pump setting were verified with the charge nurse.
--- NOTE | 2019-07-14 16:53 | NUR ---
RN NOTE: Received a phone call from mother Thornton and she was getting an update regarding his son's condition. She was informed that there is no schedule yet for the tracheostomy placement and will be inform once the surgeon gives a specific schedule. She was aware that Dr. Gonzalez (pain management MD) came and he was aware of the sedation drips of the patient. Hillary was informed that Dr. Gonzalez gave an order for Vecuronium while the patient was receiving Fentanyl and Versed drip. Patient has neem calm and quiet with the current drips given at this time. Per Hillary, she would be the main decision maker for the patient and information can be discuss with Ora (patient's ex-). Alberto Morales (friend/mentor) came by at 1500 and left his cellphone #: [phone] in order to speak with the patients mother, Hillary, but she refused to take the number and does not want to talk about anything about his son. Will endorse this to the next shift nurse to keep the patient's privacy. No restrictions to visitors were noted by mother Thornton.
[2019-07-14] MEDS: IV 1/2NS 1000 ML 1,000 ML IV PRN (18:11)
--- NOTE | 2019-07-14 19:00 | NUR ---
received patient intubated on mechanical vent with setting at ac 26, tv 700, fio2 40%, peep 5. ett is 7.5/25 at the lip. Patient is on telemetry monitoring with sr-st on the monitor. left ng tube is clean dry intact and patent with free water flush and jevity @ 65ml/hr and tolerating well with 0 residual. penn catheter is clean dry intact and patent with urine draining. Right upper arm tlc picc line is clean dry intact and patent with 1/2 ns, versed, fentanyl, and vecuronium (norcuron) infusing. Bed in low lock position with rials up x 2. call light within reach and all safety meuasre ensured and carried out. will continue to monitor.
--- NOTE | 2019-07-14 19:34 | NUR ---
RN NOTE: Bedside report was given to SHERYL Lincoln for continuity of care. Patient remained intubated and sedated with Fentanyl drip @6mcg/kg/hr, Versed @10mg/hr and Vecuronium @0.8mcg/kg/min. Patient was noted calm and quiet with 1 time episode of opening his eyes. Received a phone call from Dr. Fuchs and he said that the patient's tracheostomy placement will be by tomorrow at 0730. NPO after midnight and to get consent for the procedure. informed that Dr. Mcgowan spoke with the patient's mother Hillary Velasquez this morning and she consented over the telephone. Emphasized and showed to SHERYL Lincoln the order from Dr. Gonzalez regarding the Vecuronium. Frequent neurocheck was done.
--- NOTE | 2019-07-14 20:30 | NUR ---
Checked the degree of neuromuscular blockage from Norcuron medication. Patient has 4 twitches with level 3 on the facial nerve. Will reassess every 4 hours.
[2019-07-14] MEDS: ENOXAPARIN SODIUM 40 MG/0.4 ML DISP.SYRIN SQ SCH (21:23)
[2019-07-15] VITALS (47 sets, daily range): BP systolic 111–146; BP diastolic 65–99
--- NOTE | 2019-07-15 | NUR ---
Checked the degree of neuromuscular blockage from Norcuron medication. Patient has 4 twitches with level 3 on the facial nerve. Patient is calm and sedated on versed and fentanyl. Will reassess in 4 hours.
[2019-07-15] MEDS: IPRATROPIUM NEB FS 0.5 MG/2.5 ML AMPUL.NEB NEB SCH ×7 (00:57→23:52)
[2019-07-15] MEDS: FENTANYL CITRATE IV 2,500 MCG in IV NS 0.9% 200 ML IV PRN ×5 (02:05→19:17)
[2019-07-15 04:27] LABS: BASOPHILS # (AUTO) 0.1 /CMM (0.0-0.2); BASOPHILS % (AUTO) 1.4 % (0.0-2.0); EOSINOPHILS % (AUTO) 5.8 % (0.0-6.0); HEMATOCRIT 27 % (39-51); LYMPHOCYTES # (AUTO) 0.6 /CMM (0.8-4.8); LYMPHOCYTES % (AUTO) 7.5 % (20.0-44.0); MEAN CORPUSCULAR HGB CONC 34 g/dl (31.0-36.0); MEAN CORPUSCULAR VOLUME 89 fL (80-96); MONOCYTES # (AUTO) 0.5 /CMM (0.1-1.30); MONOCYTES % (AUTO) 6.8 % (2.0-12.0); NEUTROPHILS % (AUTO) 78.5 % (43.0-81.0); PLATELET COUNT (AUTO) 674 /CMM (150-450); WHITE BLOOD COUNT (AUTO) 7.6 K/uL (4.3-11.0)
--- NOTE | 2019-07-15 05:00 | NUR ---
RT RECD PT INTUBATED SECURED AMBER VENT SETTING ALARMS ON AND AUDIBLE BAG AND MASK AT HOB, TX GIVEN AMBER WELL NO ADVERSE REACTION NOTED ATT NO RESP DISTRESS THROUGHOUT SHIFT WILL CONT TO MONITOR
[2019-07-15 05:01] LABS: ALBUMIN 1.5 g/dL (3.4-5.0); BILIRUBIN,TOTAL 0.3 mg/dL (0.2-1.0); CALCIUM, SERUM 8.4 mg/dL (8.5-10.1); CREATININE 2.1 mg/dL (0.6-1.3); MAGNESIUM 2.3 mg/dL (1.8-2.4); PHOSPHORUS 4.1 mg/dL (2.5-4.9); POTASSIUM 3.8 mmol/L (3.5-5.1); TOTAL PROTEIN, SERUM 5.3 g/dL (6.4-8.2)
--- NOTE | 2019-07-15 06:42 | NUR ---
0600 Received phone call from Radiologist procurement consultant that Right sided picc line has moved and terminates in the left mediastinum. recommended to repeat chest x ray to double check placement to see if picc line has moved back to its original location. 0615- Contacted Samson Chester DNP of radiologist report and recommended to contact PICC line RN to determine if picc line is ok to use. 06- Contacted Eber Segal PICC line RN with report from radiologist and due to good blood return PICC line is ok to use. 06- Notified Samson Chester DNP of Picc line churn driller that due to good blood flow PICC line is ok to use. Samson agrees with assessment. Will continue to use and assess picc line.
[2019-07-15] MEDS ORDERED: LIDOCAINE HCL/PF 1% 30 ML SDV ONE (07:29)
--- NOTE | 2019-07-15 07:39 | NUR ---
Patient left with OR team for Tracheostomy procedure. Patient remains in no acute distress in bed. patient did not have any significant change in condition during shift. all needs met, all orders carried out. will endorse care to am rn for continuity of care.
[2019-07-15] MEDS ORDERED: CELLULOSE,OXIDIZED 1 PKT EACH MC ONE (08:03)
--- NOTE | 2019-07-15 08:23 | NUR ---
RT NOTE Took Patient with OR team for Tracheostomy procedure. Patient remained in stable condition during transport. manually ventilated, until OR, will follow up
--- NOTE | 2019-07-15 08:25 | NUR ---
RT NOTE PT RETURNED FROM OR IN STABLE CONDITION PLACED PT BACK ON PREVIOUS VENT SETTINGS ALL V/S WITHIN NORMAL LIMITS. PT STABLE UPON ARRIVAL.
[2019-07-15] MEDS: PANTOPRAZOLE 40 MG VIAL IV SCH (08:45)
[2019-07-15] MEDS: LEVOTHYROXINE SODIUM 75 MCG TABLET PO SCH (08:45)
[2019-07-15] MEDS: MEROPENEM 1 G in IV NS 0.9% 100 ML IV SCH (08:46)
--- NOTE | 2019-07-15 09:35 | NUR ---
received pt from slot shift supervisor, sedated on versed at 10mg/hr, paralyzed on Norcuron at 0.8 mcg/hr and fentanyl at 6 mcg/hr, SR, s/p trach placement in the morning, pt tolerated well, lungs congested, anasarca, NG to feeding, tolerates well, f/c good output, v/s stable, no pain, pt turned and repositioned.
[2019-07-15] MEDS: MIDAZOLAM HCL 100 MG in IV NS 0.9% 80 ML IV PRN ×2 (10:38→20:03)
[2019-07-15] MEDS: VECURONIUM IV PRN (11:37)
[2019-07-15] MEDS: D5W IV PRN (11:37)
[2019-07-15] MEDS: IV 1/2NS 1000 ML 1,000 ML IV PRN (14:12)
--- NOTE | 2019-07-15 16:33 | NUR ---
pt is resting in the bed, sedated on versed and paralyzed on vecuronium, on fentanyl drip at 5mcg/kg, SR, check responsiveness with PNS on lever 4 is 3 twitches which is the goal, tolerates feeding, good urine output, v/s stable, no pain, pt cleaned, changed and repositioned q2hrs.
--- NOTE | 2019-07-15 19:00 | NUR ---
RECEIVED PATIENT WITH TRACHEOSTOMY TO THE VENTILATOR ON AC MODE,SEDATED ON VERSED DRIP @ 10 MG/HR, fENTANYL DRIP @ 5 MCG/KG/HR(BASED ON114 KG),AND ON PARALYTIIC AGENT(NORCURON DRIP) @ 0.8 MCG/KG//MIN. WITH TOF GOAL OF 2-3 /4 TWITCHES..NOT IN ANY DISTRESS,BREATHING REGULAR,NON LABORED AND SYNCHRONOUSLY WITH THE VENTILATOR . PIP=38. . WILL CLOSELY MONITOR AND CHECK TOF Q 4HRS.ASPIRATION PRECAUTION, ON TUBE FEEDING VIA NGT @ GOAL 65 ML/HR.COMFORT CARE DONE, TURN TO SIDES.
--- NOTE | 2019-07-15 20:00 | NUR ---
FEEDING RESIDUAL > 200 ,FEEDING DECREASE FOR NOW TO 35 ML/HR AND REEVALUATE.
--- NOTE | 2019-07-15 20:00 | NUR ---
TOF TOF= 2-3/4 TWITCHES AT ENERGY LEVEL OF 4 HZ
--- NOTE | 2019-07-15 20:07 | NUR ---
PT RCVD TRACH SHILEY 8 XLT ON VENT WITH NOTED SETTINGS. ALARMS ARE SET AND AUDIBLE. EQUAL CHEST RISE NOTED. VENT PLUGGED INTO RED OUTLET. SOFTWARE PROGRAM MANAGER DONE. BREATHING TX GIVEN . NO ADVERSE REACTION NOTED. PT. AMBER. WELL AND NO DISTRESS NOTED. SUCTIONED DONE PRN. AMBU BAG @ BEDSIDE. WILL CONTINUE TO MONITOR THE PT T/O SHIFT.
[2019-07-15] MEDS: ENOXAPARIN SODIUM 40 MG/0.4 ML DISP.SYRIN SQ SCH (21:19)
--- NOTE | 2019-07-15 22:00 | NUR ---
REMAINS STABLE,NOT IN ANY DISTRESS.REMAINS SEDATED AND WITH PARALYTICS.REPOSITIONED
[2019-07-16] VITALS (45 sets, daily range): BP systolic 113–147; BP diastolic 61–99
--- NOTE | 2019-07-16 | NUR ---
TOF= 3/4, WITH POWER LEVEL OF 3. REMAINS SEDATED.NOT IN ANY DISTRESS,SATURATING 97-99%.PIP=40.COMFORT CARE DONE.
[2019-07-16] MEDS: FENTANYL CITRATE IV 2,500 MCG in IV NS 0.9% 200 ML IV PRN ×5 (00:07→23:54)
[2019-07-16] MEDS: JEVITY 1.2 CAL 1,000 ML BOTTLE GT PRN (02:39)
[2019-07-16] MEDS: IPRATROPIUM NEB FS 0.5 MG/2.5 ML AMPUL.NEB NEB SCH ×6 (03:27→23:51)
--- NOTE | 2019-07-16 04:00 | NUR ---
TOF=3/4 ON ENERGY LEVEL 3. REMAINS SEDATED AND PARALYZED .NO SOB,SATURATING 97-97%. ON THE VENTILATOR ,PIP=43.
[2019-07-16 04:38] LABS: BASOPHILS # (AUTO) 0.2 /CMM (0.0-0.2); BASOPHILS % (AUTO) 1.8 % (0.0-2.0); EOSINOPHILS % (AUTO) 4.1 % (0.0-6.0); HEMATOCRIT 32 % (39-51); HEMOGLOBIN 10.6 g/dL (13.5-17.5); LYMPHOCYTES # (AUTO) 0.7 /CMM (0.8-4.8); LYMPHOCYTES % (AUTO) 7.3 % (20.0-44.0); MEAN CORPUSCULAR HGB CONC 34 g/dl (31.0-36.0); MEAN CORPUSCULAR VOLUME 88 fL (80-96); MONOCYTES # (AUTO) 0.7 /CMM (0.1-1.30); MONOCYTES % (AUTO) 6.9 % (2.0-12.0); NEUTROPHILS # (AUTO) 7.9 /CMM (1.8-8.9); NEUTROPHILS % (AUTO) 79.9 % (43.0-81.0); PLATELET COUNT (AUTO) 801 /CMM (150-450); WHITE BLOOD COUNT (AUTO) 9.8 K/uL (4.3-11.0)
[2019-07-16 05:07] LABS: CALCIUM, SERUM 8.3 mg/dL (8.5-10.1); CREATININE 2.4 mg/dL (0.6-1.3); POTASSIUM 3.8 mmol/L (3.5-5.1)
--- NOTE | 2019-07-16 06:00 | NUR ---
STATUS UNCHANGED,WELL SEDATED AND STILL ON PARALYZING AGENT. NOW WITH TOF= 3/4 ON ENERGY LEVEL OF 3.
[2019-07-16] MEDS: MIDAZOLAM HCL 100 MG in IV NS 0.9% 80 ML IV PRN ×2 (06:06→16:34)
--- NOTE | 2019-07-16 06:30 | NUR ---
HU=053, ORDERED WATER FLUSHES 150 ML Q 4 HRS .STARTED 0700 REPORT GIVEN TO DELMI SAUCEDO
[2019-07-16] MEDS: LEVOTHYROXINE SODIUM 75 MCG TABLET PO SCH (07:43)
--- NOTE | 2019-07-16 08:17 | NUR ---
received pt from radiologic technologist chief, sedated on versed at 10mg, fentanyl at 5mcg and paralyzed on vecuronium at 0.8mcg, SR, on the vent, lungs congested, PNA, anasarca, NG to feeding tolerates well, f/c good output, v/s stable, no pain, pt turned and repositioned.
[2019-07-16] MEDS: D5W IV PRN (08:21)
[2019-07-16] MEDS: VECURONIUM IV PRN (08:21)
[2019-07-16 08:32] LABS: ABG BASE EXCESS -7.5 mmol/L; ABG OXYGEN SATURATION 95.8 % (92.0-98.5); ABG PCO2 23.9 mmHg (35.0-45.0); ABG PH 7.428 (7.350-7.450); AaDO2 164.7 mmHg; COHb 0.2 % (0.5-1.5); MetHb 0.4 % (0.0-1.5); O2Hb 95.2 % (94.0-97.0); SITE, ABG Right Radial; VENT MODE, BG AC 26 700 +5 40
[2019-07-16] MEDS: PANTOPRAZOLE 40 MG VIAL IV SCH (08:54)
[2019-07-16] MEDS: IV 1/2NS 1000 ML 1,000 ML IV PRN (11:54)
--- NOTE | 2019-07-16 16:45 | NUR ---
pt is sedated and paralyzed, also on fentanyl at 3mcg/kg, PNS at level 3 = 3 twitches, tolerates feeding, OK urine output, anasarca, v/s stable, no pain, pt cleaned, changed and repositioned.
[2019-07-16] MEDS: ENOXAPARIN SODIUM 40 MG/0.4 ML DISP.SYRIN SQ SCH (22:28)
[2019-07-17] VITALS (52 sets, daily range): BP systolic 120–207; BP diastolic 79–126
[2019-07-17] MEDS: JEVITY 1.2 CAL 1,000 ML BOTTLE GT PRN (00:14)
[2019-07-17] MEDS: MIDAZOLAM HCL 100 MG in IV NS 0.9% 80 ML IV PRN ×3 (02:31→22:53)
[2019-07-17] MEDS: IPRATROPIUM NEB FS 0.5 MG/2.5 ML AMPUL.NEB NEB SCH ×6 (03:20→23:37)
[2019-07-17 04:32] LABS: BASOPHILS # (AUTO) 0.1 /CMM (0.0-0.2); BASOPHILS % (AUTO) 1.1 % (0.0-2.0); EOSINOPHILS % (AUTO) 4.8 % (0.0-6.0); HEMATOCRIT 31 % (39-51); HEMOGLOBIN 10.4 g/dL (13.5-17.5); LYMPHOCYTES # (AUTO) 0.7 /CMM (0.8-4.8); MEAN CORPUSCULAR HGB CONC 34 g/dl (31.0-36.0); MEAN CORPUSCULAR VOLUME 88 fL (80-96); MONOCYTES # (AUTO) 0.6 /CMM (0.1-1.30); MONOCYTES % (AUTO) 5.5 % (2.0-12.0); NEUTROPHILS # (AUTO) 8.1 /CMM (1.8-8.9); NEUTROPHILS % (AUTO) 81.6 % (43.0-81.0); PLATELET COUNT (AUTO) 742 /CMM (150-450); RED BLOOD CELL COUNT(AUTO) 3.48 MIL/uL (4.5-6.0)
[2019-07-17 05:08] LABS: BAND % (MANUAL) 4 % (0.0-5.0); EOSINOPHILS % (MANUAL) 4 % (0-4); LYMPHOCYTES % (MANUAL) 7 % (16-48); MONOCYTES % (MANUAL) 3 % (0-11.0); NEUTROPHILS % (MANUAL) 82 (42-76)
--- NOTE | 2019-07-17 05:41 | NUR ---
PT RCVD TRACH'D ON MECHANICAL VENT WITH CHARTED SETTINGS. PT AMBER TX WELL. SX DONE. PT TRACH IS PATENT AND SECURE. VENT ALARMS ARE SET, AUDIBLE, AND FUNCTIONING. VENT PLUGGED INTO RED OUTLET. AMBU BAG AT BEDSIDE. NO SOB NOTED. Addendum: 07/17/19 at 0543 by WINSOME CONCEPCION RT Amended: Links added.
[2019-07-17] MEDS: FENTANYL CITRATE IV 2,500 MCG in IV NS 0.9% 200 ML IV PRN ×2 (07:32→18:43)
--- NOTE | 2019-07-17 08:00 | NUR ---
DOVETAILER: pt is sedated with Versed 10 mg/h, Fentanyl 2 mcg/kg/h (234 mcg/h) now, will continue titrate per MD order, paralyzed with Vecuronium 0.8 mcg/kg/min, PNS at level 3-3twiches, sluggish pupils light reaction, O2sat. over 96%, suctioned well, RR 26, SBP is over 100, below 160, SR, general edema+2/3/anasarca, scrotum edema +4/elevated, getting 1/2NS@50ml/h, Na+150, NGTF residual 250ml now (getting free H2O 150 ml q4h), hold GTF for 2 hrs, keep HOB over 40, spoke with Kirby, Pharmacist-confirmed: Vecuronium concentration 100mg in 280ml bag is correct, secured IVF tubes connection, marked, charge nurse updated, T97.8
--- NOTE | 2019-07-17 08:25 | NUR ---
INSTALLER HELPER: is in room, updated with all above(see prev.note info), no new order for now
[2019-07-17] MEDS: LEVOTHYROXINE SODIUM 75 MCG TABLET PO SCH (08:31)
[2019-07-17] MEDS: D5W IV PRN (08:31)
[2019-07-17] MEDS: VECURONIUM IV PRN (08:31)
[2019-07-17] MEDS: PANTOPRAZOLE 40 MG VIAL IV SCH (08:32)
[2019-07-17] MEDS: IV 1/2NS 1000 ML 1,000 ML IV PRN (08:32)
--- NOTE | 2019-07-17 09:20 | NUR ---
HOPS FARMWORKER: is in room, updated with pt.sedation level and all drips, PNS level with 0.8 mcg/kg/m Vecuronium, POC, VS, vent.setting, O2sat, over 97%, RR 26, suction amount, I/O, general edema level, NGTF on hold now, IVF, neuro status, ordered: ABG
--- NOTE | 2019-07-17 10:00 | NUR ---
SUPERVISOR FRAME ASSEMBLY: NGT residual 100ml now, continue hold NGTF
[2019-07-17 10:20] LABS: ABG BASE EXCESS -6.9 mmol/L; ABG OXYGEN SATURATION 96.6 % (92.0-98.5); ABG PCO2 27.6 mmHg (35.0-45.0); ABG PO2 100.9 mmHg (75.0-100.0); AaDO2 152.6 mmHg; COHb 0.3 % (0.5-1.5); MetHb 0.5 % (0.0-1.5); O2Hb 95.8 % (94.0-97.0); PEEP,BG 5 cm H2O; SITE, ABG Right Radial
--- NOTE | 2019-07-17 10:45 | NUR ---
BOX CLOSING MACHINE OPERATOR: AIDEE Mayes is in room/updated, no new order now
--- NOTE | 2019-07-17 12:04 | NUR ---
CATHODE RAY TUBE SALVAGE PROCESSOR: PNS at level 4-4 twitches, NGT residual 20/NGTF resumed, suctioned well, keep HOB 45, ABG done/ notified
--- NOTE | 2019-07-17 14:15 | NUR ---
CONCRETE BLOCK MAKER: NGTF residual: 80 ml now
--- NOTE | 2019-07-17 16:10 | NUR ---
HEARING AID MECHANIC: PNS at level 3-3twitches, same neuro status, NGTF residual 30ml/continue NGTF,free water for now, PM,skin,wound care done/pt is suctioned well, pt began tachycardic 130-140, T 99.0, O2sat. over 97%, RR 26, anasarca, BP 168/112, Hydralazine 20mg IV given, gtts now: Fentanyl 2 mcg/kg/h, Versed 10mg/h, Vecuronium 0.8 mcg/kg/m, charge nurse updated
[2019-07-17] MEDS: hydrALAZINE HCL IV 20 MG VIAL IV PRN ×2 (16:12→22:40)
--- NOTE | 2019-07-17 17:10 | NUR ---
TRANSFILL TECHNICIAN: ST 130-140, BP is still high, 202/113, O2sat. 93-94%, RR 26, paged
--- NOTE | 2019-07-17 17:35 | NUR ---
POWER PLANT ELECTRICIAN: answered/updated: Fentanyl still running 2 mcg/kg/h, ST on monitor, ordered: Metoprolol 5 mg IV q6h PRN if HR over 120 or SBP over 180
[2019-07-17] MEDS: METOPROLOL TARTRATE INJ 5 MG/5 ML AMPUL IVP PRN (18:01)
--- NOTE | 2019-07-17 19:18 | NUR ---
RT NOTES PT RECEIVED TRACHED ON [facility] VENT ON CHARTED SETTINGS. NO SIGNS OF RESP DISTRESS/SOB NOTED AT THIS TIME. AIRWAY PATENT AND SECURED. PT SUCTIONED. PT GIVEN HHN TX. NO ADVERSE REACTIONS NOTED. ALARMS SET AND AUDIBLE. AMBUBAG AND SPARE TRACH AT BEDSIDE. VENT CONNECTED TO RED OUTLET. WILL CONT TO MONITOR. Addendum: 07/17/19 at 2104 by STEVE BOLTON RT Amended: Links added.
--- NOTE | 2019-07-17 19:30 | NUR ---
DRIP MOLDER NOTE RECEIVED PT SEDATED AND [facility] TOLERATING SETTINGS WELL. HOB ELEVATED. BREATHING UNLABORED. TELE- ST. MAINTAINING ISOLATION PRECAUTIONS. DORY PICC CLEAN WITH VERSED, FENTANYL, VERCURONIUM AND IV FLUIDS INFUSING. TOF TESTED ON FACIAL NERVE AT LEVEL 3 WITH 2 TWITCHES PRESENT. NGT IN WITH FEEDING INFUSING AND WELL TOLERATED WITHOUT RESIDUALS NOTED. BINGHAM CATHETER IN PLACE AND DRAINING BY GRAVITY. WILL CONTINUE TO MONITOR.
[2019-07-17] MEDS: ENOXAPARIN SODIUM 40 MG/0.4 ML DISP.SYRIN SQ SCH (21:44)
[2019-07-18] VITALS (46 sets, daily range): BP systolic 115–180; BP diastolic 59–119
[2019-07-18] MEDS: METOPROLOL TARTRATE INJ 5 MG/5 ML AMPUL IVP PRN ×4 (00:13→19:25)
--- NOTE | 2019-07-18 00:30 | NUR ---
RAISED PRINTER NOTE TOF TESTED ON FACIAL NERVE ON LEVEL 3 WITH 3 TWITCHES NOTED. BP AND HR REMAIN ELEVATED AND LOPRESSOR 5MG IVP GIVEN. WILL MONITOR. REMAINS SEDATED. REPOSITIONED AND SUCTIONED. WILL MONITOR.
[2019-07-18] MEDS: IPRATROPIUM NEB FS 0.5 MG/2.5 ML AMPUL.NEB NEB SCH ×6 (03:11→23:27)
[2019-07-18 03:40] LABS: BASOPHILS # (AUTO) 0.1 /CMM (0.0-0.2); BASOPHILS % (AUTO) 0.5 % (0.0-2.0); HEMATOCRIT 30 % (39-51); HEMOGLOBIN 9.8 g/dL (13.5-17.5); LYMPHOCYTES # (AUTO) 0.6 /CMM (0.8-4.8); LYMPHOCYTES % (AUTO) 5.7 % (20.0-44.0); MEAN CORPUSCULAR HGB CONC 33 g/dl (31.0-36.0); MEAN CORPUSCULAR VOLUME 88 fL (80-96); MONOCYTES # (AUTO) 0.8 /CMM (0.1-1.30); MONOCYTES % (AUTO) 7.1 % (2.0-12.0); NEUTROPHILS # (AUTO) 9.5 /CMM (1.8-8.9); NEUTROPHILS % (AUTO) 84.7 % (43.0-81.0); PLATELET COUNT (AUTO) 702 /CMM (150-450); RED BLOOD CELL COUNT(AUTO) 3.41 MIL/uL (4.5-6.0); WHITE BLOOD COUNT (AUTO) 11.3 K/uL (4.3-11.0)
[2019-07-18] MEDS: JEVITY 1.2 CAL 1,000 ML BOTTLE GT PRN (03:48)
[2019-07-18] MEDS: IV 1/2NS 1000 ML 1,000 ML IV PRN (04:38)
[2019-07-18] MEDS: FENTANYL CITRATE IV 2,500 MCG in IV NS 0.9% 200 ML IV PRN (05:45)
--- NOTE | 2019-07-18 07:15 | NUR ---
X RAY TECHNICIAN NOTES RECEIVED PATIENT SEDATED , NOT IN ACUTE DISTRESS , RESPIRATIONS EVEN AND UNLABORED WITH SPO2 OF 98% VIA MECHANICAL VENT SETTINGS ORDERED , TRACH OF SHILEY 8XLT IN PLACE WITH SUTURED NO BLEEDING NOTED , ST 120 ON BEDSIDE MONITOR , FC DRAINING VIA GRAVITY , LEFT NARE NGT IN PLACE WITH JEVITY @ 65ML/HR INFUSING WELL WITH NO RESIDUALS NOTED , DORY PICC LINE WITH FENTANYL TITRATED DOWN TO 1MCG/KG/HR , VERSED @ 10MG/HR , NORCURON @0.8MCG/KG/HR , 1/2NS @ 50ML/HR INFUSING WELL . WILL CONTINUE TO MONITOR
[2019-07-18] MEDS: LEVOTHYROXINE SODIUM 75 MCG TABLET PO SCH (07:58)
--- NOTE | 2019-07-18 08:00 | NUR ---
ICE DELIVERY DRIVER NOTES TOF TESTED ON FACIAL NERVE ON LEVEL 3 WITH 3 TWITCHES NOTED.
[2019-07-18] MEDS: D5W IV PRN ×2 (08:01→08:05)
[2019-07-18] MEDS: PANTOPRAZOLE 40 MG VIAL IV SCH (08:01)
[2019-07-18] MEDS: VECURONIUM IV PRN ×2 (08:01→08:05)
[2019-07-18] MEDS: hydrALAZINE HCL IV 20 MG VIAL IV PRN ×3 (08:05→20:13)
[2019-07-18] MEDS: MIDAZOLAM HCL 100 MG in IV NS 0.9% 80 ML IV PRN ×2 (09:01→18:57)
[2019-07-18] MEDS: LORAZEPAM INJ 2 MG/ML VIAL IV PRN ×2 (09:40→20:52)
--- NOTE | 2019-07-18 12:15 | NUR ---
MANAGER COMPENSATION NOTES NOTIFIED DR MEDINA REGARDING HR OF ST 130'S -140'S , WITH BP OF 172/108 HYDRALAZINE 20MG GIVEN , BP REASSESSMENT NOTED WITH 150/106 , ATIVAN GIVEN @ 0940 WITH NO IMPROVEMENT TO BP AND HR , PT IS AFEBRILE , HAVING GOOD URINE OUTPUT , NO BMP ORDERED TODAY , AWARE , OK TO PUT BMP , MAG AND PHOS TODAY , ORDERS CARRIED OUT
[2019-07-18 13:23] LABS: CREATININE 3.1 mg/dL (0.6-1.3); POTASSIUM 4.8 mmol/L (3.5-5.1)
--- NOTE | 2019-07-18 13:33 | NUR ---
SUPERVISOR DRYING AND WINDING NOTES CALLED DR FREDERICK REGARDING FENTANYL TITRATED @0700 @ 1MCG/KG/HR , AWAITING FOR CALL BACK
[2019-07-18 13:41] LABS: MAGNESIUM 2.5 mg/dL (1.8-2.4); PHOSPHORUS 6.6 mg/dL (2.5-4.9)
--- NOTE | 2019-07-18 14:05 | NUR ---
CONTRACT ACCOUNTANT NOTES PAGED [facility] TO NOTIFY BUN 78 , CREATININE 3.1 , PHOS 6.6 AND MAG OF 2.5 WITH GOOD URINE OUTPUT , SPOKE WITH CALLIE AWAITING FOR MD CALL BACK
--- NOTE | 2019-07-18 14:06 | NUR ---
DATA RECOVERY PLANNER NOTES NOTIFIED DR MEDINA REGARDING HIGH BP OF 176/101 AFTER HYDRALAZINE 20MG @ 1205 AND LOPRESSOR 5MG @ 1315 , PER MD START PT ON CLONIDINE PATCH 0.3MG Q WEEK , ORDER CARRIED OUT
[2019-07-18] MEDS ORDERED: CLONIDINE HCL 0.3 MG/24H PTWK 1 EA PATCH TD SCH (15:00)
--- NOTE | 2019-07-18 19:29 | NUR ---
PLATE MILL MILL HAND NOTES PATIENT SEDATED , NOT IN ACUTE DISTRESS , RESPIRATIONS EVEN AND UNLABORED WITH SPO2 OF 100% VIA MECHANICAL VENT SETTINGS ORDERED , TRACH OF SHILEY 8XLT IN PLACE WITH SUTURED NO BLEEDING NOTED , ST 107 ON BEDSIDE MONITOR , FC DRAINING VIA GRAVITY , LEFT NARE NGT IN PLACE WITH JEVITY @ 65ML/HR INFUSING WELL WITH NO RESIDUALS NOTED , DORY PICC LINE WITH FENTANYL @1MCG/KG/HR , VERSED @ 10MG/HR , NORCURON @0.8MCG/KG/HR , 1/2NS @ 50ML/HR INFUSING WELL . REPORT GIVEN TO RAVI FOR CONTINUITY OF CARE
--- NOTE | 2019-07-18 20:00 | NUR ---
SOW FARM TECHNICIAN NOTES RECEIVED PATIENT SEDATED , NOT IN ACUTE DISTRESS , RESPIRATIONS EVEN AND UNLABORED WITH SPO2 OF 99% VIA MECHANICAL VENT SETTINGS ORDERED , TRACH OF SHILEY 8XLT IN PLACE WITH SUTURED NO BLEEDING NOTED , ST 120S ON BEDSIDE MONITOR , FC DRAINING VIA GRAVITY , LEFT NARE NGT IN PLACE WITH JEVITY @ 65ML/HR INFUSING WELL WITH NO RESIDUALS NOTED , DORY PICC LINE WITH FENTANYL AT 1MCG/KG/HR , VERSED @ 10MG/HR , NORCURON @ 0.8MCG/KG/HR , 1/2NS @ 50ML/HR INFUSING WELL . WILL CONTINUE TO MONITOR
[2019-07-18] MEDS: ENOXAPARIN SODIUM 40 MG/0.4 ML DISP.SYRIN SQ SCH (20:14)
[2019-07-19] VITALS (30 sets, daily range): BP systolic 129–175; BP diastolic 78–110
[2019-07-19] MEDS: IV 1/2NS 1000 ML 1,000 ML IV PRN (01:10)
[2019-07-19] MEDS: FENTANYL CITRATE IV 2,500 MCG in IV NS 0.9% 200 ML IV PRN ×2 (02:03→23:00)
[2019-07-19] MEDS: IPRATROPIUM NEB FS 0.5 MG/2.5 ML AMPUL.NEB NEB SCH ×6 (03:20→23:32)
[2019-07-19 04:15] LABS: BASOPHILS % (AUTO) 0.3 % (0.0-2.0); EOSINOPHILS % (AUTO) 2.3 % (0.0-6.0); HEMATOCRIT 32 % (39-51); HEMOGLOBIN 10.8 g/dL (13.5-17.5); LYMPHOCYTES # (AUTO) 0.6 /CMM (0.8-4.8); LYMPHOCYTES % (AUTO) 4.4 % (20.0-44.0); MEAN CORPUSCULAR HGB CONC 34 g/dl (31.0-36.0); MEAN CORPUSCULAR VOLUME 89 fL (80-96); MONOCYTES # (AUTO) 1.2 /CMM (0.1-1.30); MONOCYTES % (AUTO) 8.9 % (2.0-12.0); NEUTROPHILS # (AUTO) 11.4 /CMM (1.8-8.9); NEUTROPHILS % (AUTO) 84.1 % (43.0-81.0); PLATELET COUNT (AUTO) 742 /CMM (150-450); RED BLOOD CELL COUNT(AUTO) 3.65 MIL/uL (4.5-6.0); WHITE BLOOD COUNT (AUTO) 13.6 K/uL (4.3-11.0)
[2019-07-19] MEDS: MIDAZOLAM HCL 100 MG in IV NS 0.9% 80 ML IV PRN ×2 (05:15→16:24)
--- NOTE | 2019-07-19 06:28 | NUR ---
PT RECEIVED TRACHED SHLY 8XLT. NO RESP DISTRESS THE WHOLE NIGHT. PT TOLERATING SETTINGS. TRACH SECURE, CUFF PRODUCTION GEAR CUTTER. SX'D FOR MOD AMT OF THIN WHITE SECRETIONS. VENT ALARMS SET AND AUDIBLE. VENT PLUGGED INTO RED OUTLET. [facility] SUPPORT.
[2019-07-19] MEDS: D5W IV PRN (06:38)
[2019-07-19] MEDS: VECURONIUM IV PRN (06:38)
[2019-07-19] MEDS: JEVITY 1.2 CAL 1,000 ML BOTTLE GT PRN (06:43)
[2019-07-19] MEDS: hydrALAZINE HCL IV 20 MG VIAL IV PRN ×2 (06:49→10:15)
--- NOTE | 2019-07-19 07:00 | NUR ---
ICU NOTES RECEIVED BEDSIDE REPORT. PT IN BED SEDATED TRACH AND VENT. NO S/S OF DISTRESS OR ACUTE PAIN NOTED. BINGHAM CATH DRAINING CLEAR YELLOW URINE VITALS STABLE AT THIS TIME ALL LINES PATENT. SAFETY AND ISOLATION PRECAUTIONS IN PLACE AND WILL CONT TO MONITOR ACCORDINGLY
[2019-07-19] MEDS: PANTOPRAZOLE 40 MG VIAL IV SCH (08:22)
[2019-07-19] MEDS: LEVOTHYROXINE SODIUM 75 MCG TABLET PO SCH (08:22)
--- NOTE | 2019-07-19 09:05 | NUR ---
PER DR BECKETT. LEAVE FENTANYL 1MCG AND VERSED 8MG/HR @ CURRENT RATE TITRATE OFF NORCURON BEFORE TITRATING OTHERS
--- NOTE | 2019-07-19 09:07 | NUR ---
WOUND CARE FOLLOW UP: PT SEEN FOR RE-EVALUATION OF SACRAL DEEP TISSUE INJURY IN EVOLUTION. RECOMMENDATIONS MADE FOR SKIN PROTECTION AND WOUND CARE. DISCUSSED WITH NURSING STAFF. PT CONTINUES TO HAVE PROFOUND GENERALIZED EDEMA, ESPECIALLY TO SCROTAL AND PENIS AREAS. SOME RED SPOTS NOTED TO LOWER LEGS, UNKNOWN ETIOLOGY. RN TO DISCUSS WITH MD TODAY. MD IN AGREEMENT WITH PLAN OF CARE. Addendum: 07/19/19 at 0909 by SONALI JEFFREY WNDNU Amended: Links added.
[2019-07-19] MEDS ORDERED: BUMETANIDE INJ 3 MG in IV NS 0.9% 48 ML IV ONE (10:00)
--- NOTE | 2019-07-19 10:23 | NUR ---
PT STARTED ON BUMEX 20 ML/HR IN 60 ML ORDERED. Addendum: 07/19/19 at 1024 by ROSA HALL RN HYDRALAZINE GIVEN IVP FOR B/P 170/107
--- NOTE | 2019-07-19 14:37 | NUR ---
PT NEIGHBOR CALLED JAQUELIN KOCH WHO BROUGHT PT IN PHONE # [phone]
--- NOTE | 2019-07-19 15:00 | NUR ---
BED BATH GIVEN ORAL AND WOUND CARE DONE
--- NOTE | 2019-07-19 18:31 | NUR ---
ICU NOTES PT REMAINED AFEBRILE THROUGHOUT THE SHIFT. SEDATED WITH O S/S OF DISTRESS TRACH AND VENT TOLERATING SETTINGS ORDERED. SINUS TACHY ON MONITOR. NO ACUTE PAIN NOTED. VITALS REMAINED STABLE GTF VIA LEFT NARES TOLERATED WELL WITH NO RESIDUAL.DORY PICC LINE RUNNING VERSED @8MG/HR /FENTANYL @1MCG/KG / NORCURON @ 0.8MCG/KG/ NS1/2 @ 50ML/HR. BUMEX GIVEN WITH 2050ML OUTPUT. SAFETY AND ISOLATION PRECAUTIONS IN PLACE HOB ELEVATED ASPIRATION PRECAUTIONS IN PLACE. ALL NEEDS MET WILL ENDORSE TO NOC
--- NOTE | 2019-07-19 20:00 | NUR ---
NATIONAL DEDICATED TRUCK DRIVER NOTES RECEIVED PATIENT SEDATED , NOT IN ACUTE DISTRESS , RESPIRATIONS EVEN AND UNLABORED WITH SPO2 OF 99% VIA MECHANICAL VENT SETTINGS ORDERED , TRACH OF SHILEY 8XLT IN PLACE WITH SUTURED NO BLEEDING NOTED, FC DRAINING VIA GRAVITY , LEFT NARE NGT IN PLACE WITH JEVITY @ 65ML/HR INFUSING WELL WITH NO RESIDUALS NOTED , DORY PICC LINE WITH FENTANYL AT 1MCG/KG/HR , VERSED @ 8 MG/HR , NORCURON @ 0.8MCG/KG/HR , 1/2NS @ 50ML/HR INFUSING WELL . WILL CONTINUE TO MONITOR
--- NOTE | 2019-07-19 20:00 | NUR ---
CANDY MAKER NOTES RECEIVED PATIENT IN BED, SEDATED AND ON VENT, TRACH SHLY XLT, TOLERATING VENT SETTING WELL. NO ACUTE DISTRESS NOTED AT THIS TIME. NO SIGN OF PAIN NOTED. VS ARE WNL. RU ARM PICC LINE IS INTACT AND PATENT. NO S/S OF INFILTRATION NOTED. PATIENT IS ON G-TUBE FEEDING, TOLERATING WELL. BINGHAM CATH DRAINING CLEAR YELLOW URINE. SAFETY AND ISOLATION PRECAUTIONS IN PLACE. WILL CONT TO MONITOR.
--- NOTE | 2019-07-19 20:05 | NUR ---
RECEIVED PT MARILEE SAHU 8XLT ON [facility] V[facility]. TOLERATING VENT SETTINGS. SX'D FOR SML AMT OF THIN WHITE SECRETIONS. TRACH IS SECURE, CUFF GRANT WRITER. AMBU BAG AT BEDSIDE. VENT PLUGGED INTO RED OUTLET. ALARMS SET AND AUDIBLE. CONTINUE [facility] VENT SUPPORT. Addendum: 07/19/19 at 2007 by CALEB JACOBO RT Amended: Links added.
[2019-07-19] MEDS: ENOXAPARIN SODIUM 40 MG/0.4 ML DISP.SYRIN SQ SCH (20:13)
[2019-07-20] VITALS (35 sets, daily range): BP systolic 108–178; BP diastolic 66–112
[2019-07-20] MEDS: IV 1/2NS 1000 ML 1,000 ML IV PRN ×2 (00:20→21:01)
[2019-07-20] MEDS: IPRATROPIUM NEB FS 0.5 MG/2.5 ML AMPUL.NEB NEB SCH ×6 (03:48→23:18)
[2019-07-20 04:20] LABS: BASOPHILS # (AUTO) 0.1 /CMM (0.0-0.2); BASOPHILS % (AUTO) 0.7 % (0.0-2.0); EOSINOPHILS % (AUTO) 5.1 % (0.0-6.0); HEMATOCRIT 29 % (39-51); HEMOGLOBIN 9.7 g/dL (13.5-17.5); LYMPHOCYTES # (AUTO) 0.7 /CMM (0.8-4.8); LYMPHOCYTES % (AUTO) 7.5 % (20.0-44.0); MEAN CORPUSCULAR HGB CONC 33 g/dl (31.0-36.0); MEAN CORPUSCULAR VOLUME 89 fL (80-96); MONOCYTES # (AUTO) 0.6 /CMM (0.1-1.30); MONOCYTES % (AUTO) 6.8 % (2.0-12.0); NEUTROPHILS # (AUTO) 7.6 /CMM (1.8-8.9); NEUTROPHILS % (AUTO) 79.9 % (43.0-81.0); PLATELET COUNT (AUTO) 573 /CMM (150-450); RED BLOOD CELL COUNT(AUTO) 3.27 MIL/uL (4.5-6.0); WHITE BLOOD COUNT (AUTO) 9.5 K/uL (4.3-11.0)
[2019-07-20] MEDS: MIDAZOLAM HCL 100 MG in IV NS 0.9% 80 ML IV PRN ×2 (04:44→18:19)
[2019-07-20 05:45] LABS: CALCIUM, SERUM 8.1 mg/dL (8.5-10.1); CREATININE 3.7 mg/dL (0.6-1.3); MAGNESIUM 2.5 mg/dL (1.8-2.4); PHOSPHORUS 7.8 mg/dL (2.5-4.9); POTASSIUM 5.1 mmol/L (3.5-5.1)
[2019-07-20] MEDS: D5W IV PRN ×2 (06:24→13:02)
[2019-07-20] MEDS: VECURONIUM IV PRN ×2 (06:24→13:02)
[2019-07-20] MEDS: JEVITY 1.2 CAL 1,000 ML BOTTLE GT PRN (06:25)
--- NOTE | 2019-07-20 07:00 | NUR ---
ICU NOTES RECEIVED BEDSIDE REPORT. PT IN BED SEDATED TRACH AND VENT TOLERATING SETTINGS ORDERED NO S/S OF DISTRESS OR ACUTE PAIN NOTED. BINGHAM CATH DRAINING CLEAR YELLOW URINE VITALS STABLE AT THIS TIME ALL LINES PATENT. SAFETY AND ISOLATION PRECAUTIONS IN PLACE AND WILL CONT TO MONITOR ACCORDINGLY
--- NOTE | 2019-07-20 08:00 | NUR ---
VERSED DECREASED TO 4MG/KG PER ORDERED FROM ANESTHESIOLOGIST
[2019-07-20] MEDS: LEVOTHYROXINE SODIUM 75 MCG TABLET PO SCH (08:20)
[2019-07-20] MEDS: PANTOPRAZOLE 40 MG VIAL IV SCH (08:20)
--- NOTE | 2019-07-20 08:30 | NUR ---
NGT PLACEMENT CHECKED BY AUSCULTATION AM MEDS GIVEN
[2019-07-20] MEDS ORDERED: BUMETANIDE INJ 8 MG in IV D5W 48 ML IV ONE (09:00)
--- NOTE | 2019-07-20 09:31 | NUR ---
UA SENT LAB
--- NOTE | 2019-07-20 10:15 | NUR ---
US TECH AT BEDSIDE FOR KIDNEY US
[2019-07-20 10:35] LABS: APPEARANCE,URINE SL CLOUDY (CLEAR); BILIRUBIN,URINE NEGATIVE (NEGATIVE); BLOOD, URINE MODERATE Ery/uL (NEGATIVE); COLOR,URINE YELLOW (YELLOW); KETONES,URINE NEGATIVE (NEGATIVE); LEUKOCYTE ESTERASE ,URINE SMALL (NEGATIVE); NITRITE, URINE NEGATIVE (NEGATIVE); PH,URINE 5.5 (5.0-8.0); PROTEIN,URINE NEGATIVE (NEGATIVE); UGLUCOSE NEGATIVE (NEGATIVE); UROBILINOGEN,URINE 0.2 EU/dL (0.2)
[2019-07-20 10:57] LABS: BACTERIA,URINE Few /HPF (None Seen); SQUAMOUS EPITHELIAL CELL,UR Few /HPF (None Seen)
[2019-07-20 10:58] LABS: URIC ACID CRYSTALS,URINE Moderate /HPF (None Seen)
--- NOTE | 2019-07-20 11:00 | NUR ---
called central for i mattress left message
[2019-07-20 11:13] LABS: CREATININE, URINE 32.1 MG/DL (30.0-125.0); URINE TOTAL PROTEIN 21.8 mg/dL (0-11.9)
[2019-07-20 11:25] LABS: EOSINOPHIL,URINE None Seen
--- NOTE | 2019-07-20 13:00 | NUR ---
[facility] KAREN ASKED TO BRING [facility] MATTRESS
[2019-07-20] MEDS: hydrALAZINE HCL IV 20 MG VIAL IV PRN ×2 (13:14→21:36)
--- NOTE | 2019-07-20 13:15 | NUR ---
HYDRALAZINE GIVEN FOR ELEVATED B/P 170/107 HR 123
[2019-07-20] MEDS: METOPROLOL TARTRATE INJ 5 MG/5 ML AMPUL IVP PRN ×2 (13:40→23:07)
--- NOTE | 2019-07-20 13:40 | NUR ---
NO RESULTS FROM HYDRALAZINE SO METOPROLOL GIVEN BP 190/111
[2019-07-20] MEDS: LORAZEPAM INJ 2 MG/ML VIAL IV PRN (14:35)
--- NOTE | 2019-07-20 14:35 | NUR ---
LORAZEPAM 2 MG GIVEN
--- NOTE | 2019-07-20 15:40 | NUR ---
[facility] CALLED BACK SAID THEY ARE OUT OF MATTRESSES AND ARE ON BACK ORDER TILL TONIGHT OR TOMORROW
[2019-07-20] MEDS ORDERED: BISACODYL SUPP (10 MG) 10 MG/SUPP.RECT SUPP.RECT RC PRN (18:00)
[2019-07-20] MEDS ORDERED: MAGNESIUM HYDROXIDE 30 ML UDC NG PRN (18:00)
[2019-07-20] MEDS: FENTANYL CITRATE IV 2,500 MCG in IV NS 0.9% 200 ML IV PRN (18:20)
--- NOTE | 2019-07-20 19:32 | NUR ---
REPORT ENDORSED TO NOC
--- NOTE | 2019-07-20 20:00 | NUR ---
NETWORK LEAD NOTES RECEIVED PATIENT SEDATED , NOT IN ACUTE DISTRESS , RESPIRATIONS EVEN AND UNLABORED WITH SPO2 OF 99% VIA MECHANICAL VENT SETTINGS ORDERED , TRACH OF SHILEY 8XLT IN PLACE WITH SUTURED NO BLEEDING NOTED, FC DRAINING MINIMAL URINE VIA GRAVITY , LEFT NARE NGT IN PLACE WITH JEVITY @ 65 ML/HR INFUSING WELL WITH NO RESIDUALS NOTED , DORY PICC LINE WITH FENTANYL AT 1 MCG/KG/HR , VERSED @ 4 MG/HR , NORCURON @ 0.8 MCG/KG/HR , 1/2 NS @ 50ML/HR INFUSING WELL. WILL CONTINUE TO MONITOR
[2019-07-20] MEDS: ENOXAPARIN SODIUM 40 MG/0.4 ML DISP.SYRIN SQ SCH (21:02)
[2019-07-20] MEDS: DOCUSATE SODIUM LIQ 100 MG/10 ML UDC NG SCH (21:06)
[2019-07-21] VITALS (49 sets, daily range): BP systolic 100–176; BP diastolic 63–116
--- NOTE | 2019-07-21 | NUR ---
pt not having any twitches, special agent in charge and fish tender notified, per am RN pt not having twitches because of severe generalized and facial edema. per fish tender endorse to day shift to get pt on HD
[2019-07-21] MEDS: IPRATROPIUM NEB FS 0.5 MG/2.5 ML AMPUL.NEB NEB SCH ×5 (03:13→19:54)
[2019-07-21 04:38] LABS: BASOPHILS # (AUTO) 0.1 /CMM (0.0-0.2); BASOPHILS % (AUTO) 0.5 % (0.0-2.0); EOSINOPHILS % (AUTO) 5.8 % (0.0-6.0); HEMATOCRIT 32 % (39-51); HEMOGLOBIN 10.5 g/dL (13.5-17.5); LYMPHOCYTES # (AUTO) 0.6 /CMM (0.8-4.8); LYMPHOCYTES % (AUTO) 5.7 % (20.0-44.0); MEAN CORPUSCULAR HGB CONC 33 g/dl (31.0-36.0); MEAN CORPUSCULAR VOLUME 88 fL (80-96); MONOCYTES # (AUTO) 0.7 /CMM (0.1-1.30); MONOCYTES % (AUTO) 6.7 % (2.0-12.0); NEUTROPHILS # (AUTO) 8.5 /CMM (1.8-8.9); NEUTROPHILS % (AUTO) 81.3 % (43.0-81.0); PLATELET COUNT (AUTO) 580 /CMM (150-450); WHITE BLOOD COUNT (AUTO) 10.4 K/uL (4.3-11.0)
[2019-07-21] MEDS: LORAZEPAM INJ 2 MG/ML VIAL IV PRN ×2 (04:50→16:42)
[2019-07-21 05:02] LABS: ALBUMIN 1.6 g/dL (3.4-5.0); BILIRUBIN,TOTAL 0.3 mg/dL (0.2-1.0); CALCIUM, SERUM 8.5 mg/dL (8.5-10.1); CREATININE 4.5 mg/dL (0.6-1.3); MAGNESIUM 2.8 mg/dL (1.8-2.4); POTASSIUM 5.6 mmol/L (3.5-5.1); TOTAL PROTEIN, SERUM 5.8 g/dL (6.4-8.2)
[2019-07-21 05:09] LABS: PHOSPHORUS 8.8 mg/dL (2.5-4.9)
--- NOTE | 2019-07-21 05:18 | NUR ---
critical lab values BUN 97 and phos 8.8 and worsening edema reported to Chato PHOTOGRAMMETRIC STEREO COMPILER crutching contractor, he ordered to stop IVF and consult with nephrology for HD.
--- NOTE | 2019-07-21 07:15 | NUR ---
COMPENSATION BUSINESS PARTNER OPENING NOTES RECEIVED REPORT FROM PM NURSE.PATIENT IN BED.SEDATED.NO TWITCHING MOVEMENT WHILE DOING TRAIN OF FOUR ASSESSMENT. NOT IN ACUTE DISTRESS .RESPIRATIONS EVEN AND UNLABORED WITH SPO2 OF 99% VIA MECHANICAL VENT SETTINGS ORDERED . TRACH OF SHILEY 8XLT IN PLACE WITH SUTURE NO BLEEDING NOTED.FC DRAINING MINIMAL URINE VIA GRAVITY .LEFT NARE NGT IN PLACE WITH JEVITY @ 65 ML/HR INFUSING WELL WITH NO RESIDUALS NOTED . DORY PICC LINE WITH FENTANYL AT 1 MCG/KG/HR , VERSED @ 4 MG/HR . NORCURON ON HOLD.SAFETY AND ASPIRATION MEASURES IN PLACE.BED IS LOW NAD LOCKED POSITION.SRX3.BED ALARM ON .WILL CONTINUE TO MONITOR.
--- NOTE | 2019-07-21 07:57 | NUR ---
RT note Pt received trached on mechanical ventilation with noted settings. Vent is plugged into red outlet. No SOB or respiratory distress noted. Addendum: 07/21/19 at 0833 by STEVEN HALL RT Amended: Links added.
--- NOTE | 2019-07-21 08:27 | NUR ---
SENIOR EXECUTIVE ASSISTANT NOTE SEEN BY ,UPDATED ABOUT PATIENT DONT HAVE ANY TWITCHING MOVEMENT WHILE ASSESSING TRAIN OF FOUR.OFF FROM NORCURON .RECOMMENDING TO TAPER DOWN FENTANYL AND VERSED AND TO MONITOR HIS MENTAL STATUS.LEFT MESSAGE TO .SPOKE TO PRUDENCE IN DOCTORS OFFICE.GOT CALL BACK FROM ,UPDATED ABOUT PATIENT CONDITION AND TRAIN OF FOUR ASSESSMENT5 AND RESULT.MADE AWARE PATIENT OFF FROM NORCURON.REQUESTED ABOUT STAFFING CLERK RECOMMENDATION. PER NO MORE TITRATING DOWN VERSED AND FENTANYL UNTIL PATIENT BACK FROM NORCURON EFFECT.WAIT UNTIL TOMORROW MORNING.CONTINUE TO MONITOR. MADE AWARE THAT PATIENT HAS ABDOMINAL DISTENTION AND GENERALIZED EDEMA.GOT NEW ORDER FOR KUB.WILL CONTINUE TO MONITOR.
[2019-07-21] MEDS: PANTOPRAZOLE 40 MG VIAL IV SCH (08:44)
[2019-07-21] MEDS: LEVOTHYROXINE SODIUM 75 MCG TABLET PO SCH (08:44)
[2019-07-21] MEDS: DOCUSATE SODIUM LIQ 100 MG/10 ML UDC NG SCH ×2 (08:44→17:10)
--- NOTE | 2019-07-21 10:21 | NUR ---
TRAY ROOM WORKER NOTE SEEN BY .UPDATED ABOUT PATIENT CONDITION WITH LABS.GOT NEW ORDER FOR HEMODIALYSIS.TO CORRECT POTASSIUM WITH DIALYSIS.LEFT MASSAE TO MOTHER NOHEMY TO GET CONSENT.WILL CONTINUE TO MONITOR.
--- NOTE | 2019-07-21 10:24 | NUR ---
HEATING PLANT SUPERINTENDENT OPENING NOTES RECEIVED REPORT FROM PM NURSE.PATIENT IN BED.SEDATED.NO TWITCHING MOVEMENT WHILE DOING TRAIN OF FOUR ASSESSMENT. NOT IN ACUTE DISTRESS .RESPIRATIONS EVEN AND UNLABORED WITH SPO2 OF 99% VIA MECHANICAL VENT SETTINGS ORDERED . TRACH OF SHILEY 8XLT IN PLACE WITH SUTURE NO BLEEDING NOTED.FC DRAINING MINIMAL URINE VIA GRAVITY .LEFT NARE NGT IN PLACE WITH JEVITY @ 65 ML/HR INFUSING WELL WITH NO RESIDUALS NOTED . DORY PICC LINE WITH FENTANYL AT 1 MCG/KG/HR , VERSED @ 4 MG/HR . NORCURON ON HOLD.SAFETY AND ASPIRATION MEASURES IN PLACE.BED IS LOW NAD LOCKED POSITION.SRX3.BED ALARM ON .WILL CONTINUE TO MONITOR. Addendum: 07/21/19 at 1033 by NICK SANCHEZ RN 0715 AM
[2019-07-21] MEDS: SEVELAMER CARBONATE 0.8 GM POWD.PACK GT SCH ×3 (10:52→18:15)
--- NOTE | 2019-07-21 11:00 | NUR ---
DIRECTOR OF PAYROLL NOTE GOT CONSENT FOR HEMODIALYSIS AND HD CATH PLACEMENT FROM MOTHER NOHEMY SALGADO.CONSENT VERIFIED WITH 2 RN.
--- NOTE | 2019-07-21 13:10 | NUR ---
CHAIN HOIST OPERATOR NOTE PATIENT IN ISOLATION FOR WEST NILE VIRUS.LOBO MADE AWARE WITH RESULT AND DOCTORS NOTE.OK TO D/C ISOLATION.STANDARD PRECAUTIONS.WILL CONTINUE TO MONITOR.
--- NOTE | 2019-07-21 13:22 | NUR ---
DEHYDROGENATION OPERATOR HEAD NOTE MADE AWARE ABOUT KUB RESULT .GOT ORDER FOR MAALOX PRN.
--- NOTE | 2019-07-21 13:25 | NUR ---
DRAIN TILE PRESS OPERATOR NOTE OK RESUME FEEDING ORDER FROM .CIERA ON HOLD ,LAST DOSE GIVEN 1052.SPOKE TO MARY JO FROM PHARMACY.
[2019-07-21] MEDS ORDERED: MAG HYDROX/AL HYDROX/SIMETH 30 ML UDC PO PRN (13:30)
[2019-07-21] MEDS: JEVITY 1.2 CAL 1,000 ML BOTTLE GT PRN (14:36)
[2019-07-21] MEDS: FENTANYL CITRATE IV 2,500 MCG in IV NS 0.9% 200 ML IV PRN (16:12)
[2019-07-21] MEDS: MIDAZOLAM HCL 100 MG in IV NS 0.9% 80 ML IV PRN (16:12)
--- NOTE | 2019-07-21 16:46 | NUR ---
CARDIAC EXERCISE PHYSIOLOGIST NOTE CLONIDINE PATCH CAME OFF FROM PATIENT.TO BE CHANGED TO Q7DYAS. MADE AWARE.GOT NEW ORDER TO APPLY NEW ONE WITH START DATE TODAY.
[2019-07-21] MEDS: CLONIDINE HCL 0.3 MG/24H PTWK 1 EA PATCH TD SCH (17:06)
[2019-07-21] MEDS ORDERED: MEROPENEM 1 G in IV NS 0.9% 100 ML IV ONE (17:30)
[2019-07-21] MEDS ORDERED: FEE PK DOSING 1 MIN EA MC ONE (17:49)
[2019-07-21] MEDS ORDERED: VANCOMYCIN POST DIALYSIS 500MG IV PRN ×2 (18:00)
[2019-07-21] MEDS ORDERED: VANCOMYCIN 1.5 GM in IV D5W 500ml IV ONE (19:00)
[2019-07-21 19:09] LABS: APPEARANCE,URINE CLEAR (CLEAR); BILIRUBIN,URINE NEGATIVE (NEGATIVE); BLOOD, URINE MODERATE Ery/uL (NEGATIVE); COLOR,URINE YELLOW (YELLOW); KETONES,URINE NEGATIVE (NEGATIVE); LEUKOCYTE ESTERASE ,URINE SMALL (NEGATIVE); NITRITE, URINE NEGATIVE (NEGATIVE); PROTEIN,URINE NEGATIVE (NEGATIVE); UGLUCOSE NEGATIVE (NEGATIVE); UROBILINOGEN,URINE 0.2 EU/dL (0.2)
[2019-07-21] MEDS ORDERED: MAG HYDROX/AL HYDROX/SIMETH 30 ML UDC GT PRN (19:30)
--- NOTE | 2019-07-21 19:31 | NUR ---
FINAL INSPECTOR SHUTTLE CLOSING NOTES PATIENT IN BED.SEDATED. TRAIN OF FOUR ASSESSMENT NORMAL WITH LEVEL 4. NOT IN ACUTE DISTRESS .RESPIRATIONS EVEN AND UNLABORED WITH SPO2 OF 99% VIA MECHANICAL VENT SETTINGS ORDERED . TRACH OF SHILEY 8XLT IN PLACE WITH SUTURE NO BLEEDING NOTED.ST ON TELE MONITOR HR IN 130'S .PRN ATIVAN GIVEN.FC DRAINING MINIMAL URINE VIA GRAVITY .URINE CULTURE COLLECTED ORDERED AND INFORMED LAB.LEFT NARE NGT IN PLACE WITH JEVITY @ 65 ML/HR INFUSING WELL WITH MINIMAL RESIDUALS NOTED . DORY PICC LINE WITH FENTANYL AT 1 MCG/KG/HR , VERSED @ 4 MG/HR . SAFETY AND ASPIRATION MEASURES IN PLACE.BED IS LOW AND LOCKED POSITION.SRX3.BED ALARM ON .STATISTICS PROFESSOR KELLY WILL BE PLACING HD CATH.GOT NEW ORDER FROM FOR ELEVATED POTASSIUM LEVEL BECAUSE OF DIALYSIS GETTING LATE.ENDORSED TO PM NURSE FOR RENAY.
--- NOTE | 2019-07-21 19:57 | NUR ---
HEMODIALYSIS CATHETER INSERTION Evp Chief Exploration Officer: [facility] Alberto Segal NP Trialysis 13f 30cm Patient has order to insert HD catheter. Informed consent is signed and in chart. Insertion site determined to be right femoral vein. Patient was prepped using sterile technique with chlorhexidine. Patient was covered with a sterile drape and i donned a sterile gown. The insertion site was anesthetized with 1% lidocaine. Needle inserted under ultrasound guidance. Guidewire inserted through needle and needle removed. Small tanya made at insertion site of approximately 2 mm. Dilator inserted over guidewire then removed. Catheter inserted fully over guidewire. Guidewire removed. Blood return at all three ports. Caps placed on each port. Catheter secured with 2 sutures. Biopatch placed and covered with tegaderm. No s/s of complication. Tolerated well with minimal blood loss. Ebl 3ml.
[2019-07-21] MEDS ORDERED: SODIUM POLYSTYRENE SULFONATE 15 G/60 ML BOTTLE NG ONE (20:00)
--- NOTE | 2019-07-21 21:00 | NUR ---
LEAD ETL DEVELOPER. INITIAL ASSESSMENT RECEIVED THE PT REST ON THE BED, TRACH TO VENT CONNECTED . SEDATED WITH VERSED, PT SLIGHTLY RESPONDING DEEP PAIN FULL STIMULI. AT THIS TIME. TRACH SHILEY XLT #8.AC 26,TV 700,FIO2 50%,PEEP 5. SAT 98%. NO ACUTE DISTRESS NOTED. PAYROLL ACCOUNTING SPECIALIST SHOWING S TACH. GENERALIZED EDEMA4+. HOB ELEVATED, LT NARE NGT JEVITY 65ML/H, FC PATENT. IV RT UPPER ARM PICC LINE .FENTANYL 1MG/KG/MIN,VERSED 4MG,RT FEMORAL HD CATH. WILL CONTINUE TO MONITOR VITALS.
[2019-07-21] MEDS: ENOXAPARIN SODIUM 40 MG/0.4 ML DISP.SYRIN SQ SCH (21:42)
[2019-07-22] VITALS (52 sets, daily range): BP systolic 81–168; BP diastolic 49–107
[2019-07-22] MEDS: IPRATROPIUM NEB FS 0.5 MG/2.5 ML AMPUL.NEB NEB SCH ×7 (00:02→23:28)
--- NOTE | 2019-07-22 03:46 | NUR ---
FURNITURE SPRAYER. PT MORE AWAKE, FOLLOW COMMANDS. SHIV LOWER AND UPPER EXTREMITY FLACCID. NGT FEEDING TOLERATED WELL. HOB ELEVATED, REMAINING SAME VENT SETTING ON. SAT 99%. NO ACUTE DISTRESS NOTED. HAND M[employer] FOOD MAKER SHOWING S TACH. A FEBRILE TEMPERATURE IS 98. FC PATENT ANURIC, NO BOWEL MOVEMENT. FENTANYL 1MCG/KG/H , VERSED 4 MG/H . GENERALIZED EDEMA 4+. WILL CONTINUE TO MONITOR VITALS.
[2019-07-22] MEDS: MEROPENEM 500 MG in IV NS 0.9% 50 ML IV SCH ×2 (06:10→17:36)
[2019-07-22 07:51] LABS: CALCIUM, SERUM 8.1 mg/dL (8.5-10.1); CREATININE 5.8 mg/dL (0.6-1.3); MAGNESIUM 2.8 mg/dL (1.8-2.4)
[2019-07-22 07:58] LABS: PHOSPHORUS 9.7 mg/dL (2.5-4.9); POTASSIUM 6.4 mmol/L (3.5-5.1)
[2019-07-22] MEDS: DOCUSATE SODIUM LIQ 100 MG/10 ML UDC NG SCH ×2 (08:10→17:35)
[2019-07-22] MEDS: LEVOTHYROXINE SODIUM 75 MCG TABLET PO SCH (08:10)
[2019-07-22] MEDS: PANTOPRAZOLE 40 MG VIAL IV SCH (08:10)
--- NOTE | 2019-07-22 08:24 | NUR ---
received pt from lieutenant shift supervisor, sedated on versed at 4mg, receiving fentanyl at 1mcg, follows simple commands, SR, ST, on the vent, lungs congested, anasarca, NG to feeding tolerates well, f/c very low, MD aware, HD today, K 6.4 MD notified, v/s stable, no pain, pt turned and repositioned.
[2019-07-22] MEDS: SEVELAMER CARBONATE 0.8 GM POWD.PACK GT SCH ×3 (09:00→17:35)
--- NOTE | 2019-07-22 12:14 | NUR ---
pt became very agitated, tachycardic and tachypneic, versed 8mg/hr now, pt is having HD right now.
[2019-07-22 12:39] LABS: BASOPHILS # (AUTO) 0.1 /CMM (0.0-0.2); BASOPHILS % (AUTO) 1.2 % (0.0-2.0); EOSINOPHILS % (AUTO) 5.3 % (0.0-6.0); HEMATOCRIT 31 % (39-51); HEMOGLOBIN 10.3 g/dL (13.5-17.5); LYMPHOCYTES # (AUTO) 0.5 /CMM (0.8-4.8); LYMPHOCYTES % (AUTO) 4.4 % (20.0-44.0); MEAN CORPUSCULAR HGB CONC 33 g/dl (31.0-36.0); MEAN CORPUSCULAR VOLUME 88 fL (80-96); MONOCYTES # (AUTO) 0.6 /CMM (0.1-1.30); MONOCYTES % (AUTO) 5.2 % (2.0-12.0); NEUTROPHILS # (AUTO) 8.8 /CMM (1.8-8.9); NEUTROPHILS % (AUTO) 83.9 % (43.0-81.0); PLATELET COUNT (AUTO) 556 /CMM (150-450); RED BLOOD CELL COUNT(AUTO) 3.51 MIL/uL (4.5-6.0); WHITE BLOOD COUNT (AUTO) 10.5 K/uL (4.3-11.0)
[2019-07-22] MEDS: MIDAZOLAM HCL 100 MG in IV NS 0.9% 80 ML IV PRN ×2 (13:38→23:41)
[2019-07-22] MEDS: FENTANYL CITRATE IV 2,500 MCG in IV NS 0.9% 200 ML IV PRN (13:44)
[2019-07-22] MEDS: LORAZEPAM INJ 2 MG/ML VIAL IV PRN (15:24)
--- NOTE | 2019-07-22 16:14 | NUR ---
pt is resting in the bed, on versed at 10mg because of sever agitation, on fentanyl at 1mcg, ST, tolerates feeding, one BM, good urine output, v/s stable, no pain, pt cleaned, changed and repositioned.
--- NOTE | 2019-07-22 19:00 | NUR ---
RECEIVED PATIENT WITH TRACHEOSTOMY TO THE VENTILATOR ON AC MODE. SEDATED ON VERSED DRIP @ 10 MG/HR AND FENTANYL DRIP @ 1 MCG/KG/HR(126 MCG/HR BASED ON 125.9 KG), INFUSING VIA DORY PICC LINE, SLIGHTLY OPENS EYES TOP PAIN,+ COUGH AND SLIGHT GAG, BUT STILL NO MOVEMENT NOTED OF EXTREMITIES (WAS ON PARALYTIC AGENT ,BEEN DISCONTINUED). NOT IN ANY DISTRESS,BREATHING REGULAR AND NON LABORED . TUBE FEEDING VIA OGT AT GOAL RATE 65 ML/HR. ASPIRATION PRECAUTION IMPLEMENTED, WILL MONITOR FEEDING RESIDUALS. GENERALIZED EDEMA , + SCROTAL EDEMA. STARTED ON HEMODIALYSIS TODAY VIA RIGHT FEMORAL HD CATHETER.
--- NOTE | 2019-07-22 22:00 | NUR ---
STABLE,NO CHANGE IN STATUS,COMFORT CARE DONE.
[2019-07-23] VITALS (49 sets, daily range): BP systolic 87–180; BP diastolic 47–105
--- NOTE | 2019-07-23 | NUR ---
NO CHANGE, STILL ON VERSED AND FENTANYL, WELL SEDATED ,OCCASIONALLY BLIKNS AND SLIGHTLY OPENS EYES. NOT IN ANY DISTRESS.REMAINS AFEBRILE.
[2019-07-23] MEDS: LORAZEPAM INJ 2 MG/ML VIAL IV PRN ×3 (00:51→17:48)
--- NOTE | 2019-07-23 01:00 | NUR ---
RESTLESS,TACHYPNEIC,TACHYCARDIC,ATIVAN 2 MG IV GIVEN X 1, INCREASED FENTANYL DRIP TO 2 MCG/KG/HR TILL PATIENT CALMS.
--- NOTE | 2019-07-23 02:00 | NUR ---
PATIENT NOW CALMER, FENTANYL DRIP BACK DOWN TO 1 MCG/KG/HR.
[2019-07-23] MEDS: IPRATROPIUM NEB FS 0.5 MG/2.5 ML AMPUL.NEB NEB SCH ×6 (03:02→23:24)
--- NOTE | 2019-07-23 04:00 | NUR ---
AM CARE DONE, PATIENT CALM AND COOPERATIVE.TRACHE CARE DONE,NOTED REDNESS ALL AROUND STOMA, MEPILEX APPLIED TO PREVENT SKIN INJURY.
[2019-07-23 04:59] LABS: CALCIUM, SERUM 8.3 mg/dL (8.5-10.1); CREATININE 5.5 mg/dL (0.6-1.3); MAGNESIUM 2.8 mg/dL (1.8-2.4); PHOSPHORUS 7.9 mg/dL (2.5-4.9); POTASSIUM 5.1 mmol/L (3.5-5.1)
[2019-07-23] MEDS: MEROPENEM 500 MG in IV NS 0.9% 50 ML IV SCH (05:30)
[2019-07-23 05:46] LABS: BASOPHILS % (AUTO) 0.5 % (0.0-2.0); EOSINOPHILS % (AUTO) 4.7 % (0.0-6.0); HEMATOCRIT 24 % (39-51); HEMOGLOBIN 8.2 g/dL (13.5-17.5); LYMPHOCYTES # (AUTO) 0.7 /CMM (0.8-4.8); LYMPHOCYTES % (AUTO) 9.8 % (20.0-44.0); MEAN CORPUSCULAR HGB CONC 34 g/dl (31.0-36.0); MEAN CORPUSCULAR VOLUME 87 fL (80-96); MONOCYTES # (AUTO) 0.6 /CMM (0.1-1.30); MONOCYTES % (AUTO) 8.2 % (2.0-12.0); NEUTROPHILS # (AUTO) 5.5 /CMM (1.8-8.9); NEUTROPHILS % (AUTO) 76.8 % (43.0-81.0); PLATELET COUNT (AUTO) 382 /CMM (150-450); RED BLOOD CELL COUNT(AUTO) 2.79 MIL/uL (4.5-6.0); WHITE BLOOD COUNT (AUTO) 7.2 K/uL (4.3-11.0)
--- NOTE | 2019-07-23 06:00 | NUR ---
STABLE.LOOKS COMFORTABLE NOT IN ANY DISTRESS. STILL ON VERSED AND FENTANYL DRIP. 0700 REPORT GIVEN TO DELMI SAUCEDO
--- NOTE | 2019-07-23 08:10 | NUR ---
received pt from night shift manager, calmly sedated on versed at 10mg, gets agitated at times, receiving fentanyl at 1mcg, follows simple commands, SR, ST, on the vent, lungs congested, anasarca, NG to feeding some residual, f/c OK output, HD pt, v/s stable, no pain, pt turned and repositioned.
[2019-07-23] MEDS: LEVOTHYROXINE SODIUM 75 MCG TABLET PO SCH (08:27)
[2019-07-23] MEDS: SEVELAMER CARBONATE 0.8 GM POWD.PACK GT SCH ×3 (08:28→17:22)
[2019-07-23] MEDS: DOCUSATE SODIUM LIQ 100 MG/10 ML UDC NG SCH ×2 (08:28→17:22)
[2019-07-23] MEDS: PANTOPRAZOLE 40 MG VIAL IV SCH (08:28)
[2019-07-23] MEDS: HEPARIN SODIUM, PORCINE 5000 UNITS/1 ML VIAL SQ SCH ×2 (08:29→21:13)
[2019-07-23] MEDS: FENTANYL CITRATE IV 2,500 MCG in IV NS 0.9% 200 ML IV PRN (09:08)
[2019-07-23] MEDS: MIDAZOLAM HCL 100 MG in IV NS 0.9% 80 ML IV PRN ×2 (10:20→20:57)
--- NOTE | 2019-07-23 12:33 | NUR ---
HD is over, 3L out, v/s stable.
[2019-07-23] MEDS ORDERED: VANCOMYCIN 1 GM in IV D5W 250 ML IV ONE (15:00)
--- NOTE | 2019-07-23 16:30 | NUR ---
pt is sedated on versed, and receiving fentanyl, SR, tolerates feeding, HD done, v/s stable, no pain, pt cleaned, changed and repositioned. Consent for GT signed by pt's mother. NPO after midnight.
--- NOTE | 2019-07-23 19:56 | NUR ---
RECEIVED PT OLGA PRICE 8 XLT ON [facility] VENT WITH NOTED SETTINGS PER MD ORDER. PT IS AWAKE BUT NOT FOLLOW COMMANDS. TOP CLEANER DONE. AMBU BAG AT BEDSIDE. VENT ALARMS ON AND AUDIBLE. SUCTIONED DONE PRN. BREATHING TX GIVEN ORDERED. NO ADVERSE REACTIONS NOTED. NO RESPIRATORY DISTRESS NOTED AT THIS TIME. WILL CONTINUE TO MONITOR THE PT T/O SHIFT Addendum: 07/23/19 at 2121 by ELVIA GARVEY RT PT FOLLOWS COMMANDS , WHEN I ASKED HIM TO OPEN HIS MOUTH TO SUCTION.
--- NOTE | 2019-07-23 20:00 | NUR ---
INVENTORY CONTROL CLERK Received patient awake alert but non verbal non interactive.Fentanyl gtt and versed gtt infusing via DORY PICC LINE.VS stable.On full vent support.Settings well tolerated.NGT feeding in progress no residual noted.HOB elevated.SR.FC to gravity with small OU.Will turn and reposition Q 2hrs. Continue monitoring.
[2019-07-24] VITALS (52 sets, daily range): BP systolic 93–147; BP diastolic 58–92
--- NOTE | 2019-07-24 | NUR ---
COAL GASIFICATION TECHNICIAN NGT feeding stopped and flushed.Kept NPO post MN for PEG placement in AM.
[2019-07-24] MEDS: IPRATROPIUM NEB FS 0.5 MG/2.5 ML AMPUL.NEB NEB SCH ×6 (03:35→23:25)
[2019-07-24] MEDS: LORAZEPAM INJ 2 MG/ML VIAL IV PRN ×2 (03:40→13:55)
--- NOTE | 2019-07-24 04:00 | NUR ---
HOT ROLLER Patient medicated with Ativan for agitation.Bed bath rendered.Complete linens changed. Oral care done.Wound care done.Turned and repositioned.VS remains stable.
[2019-07-24] MEDS: FENTANYL CITRATE IV 2,500 MCG in IV NS 0.9% 200 ML IV PRN ×2 (04:50→23:56)
[2019-07-24 04:57] LABS: BASOPHILS # (AUTO) 0.1 /CMM (0.0-0.2); EOSINOPHILS % (AUTO) 6.1 % (0.0-6.0); HEMATOCRIT 24 % (39-51); HEMOGLOBIN 8.2 g/dL (13.5-17.5); LYMPHOCYTES # (AUTO) 0.7 /CMM (0.8-4.8); LYMPHOCYTES % (AUTO) 7.5 % (20.0-44.0); MEAN CORPUSCULAR HGB CONC 34 g/dl (31.0-36.0); MEAN CORPUSCULAR VOLUME 88 fL (80-96); MONOCYTES # (AUTO) 0.6 /CMM (0.1-1.30); MONOCYTES % (AUTO) 6.7 % (2.0-12.0); NEUTROPHILS % (AUTO) 78.7 % (43.0-81.0); PLATELET COUNT (AUTO) 327 /CMM (150-450); RED BLOOD CELL COUNT(AUTO) 2.77 MIL/uL (4.5-6.0); WHITE BLOOD COUNT (AUTO) 8.8 K/uL (4.3-11.0)
[2019-07-24 05:23] LABS: CREATININE 5.3 mg/dL (0.6-1.3); POTASSIUM 4.7 mmol/L (3.5-5.1)
[2019-07-24 05:24] LABS: BAND % (MANUAL) 2 % (0.0-5.0); EOSINOPHILS % (MANUAL) 2 % (0-4); LYMPHOCYTES % (MANUAL) 6 % (16-48); MONOCYTES % (MANUAL) 4 % (0-11.0); NEUTROPHILS % (MANUAL) 86 (42-76)
[2019-07-24 05:27] LABS: CALCIUM, SERUM 8.1 mg/dL (8.5-10.1)
[2019-07-24] MEDS: MIDAZOLAM HCL 100 MG in IV NS 0.9% 80 ML IV PRN ×2 (05:57→17:41)
[2019-07-24] MEDS ORDERED: VANCOMYCIN 500 MG in IV D5W 100 ML IV PRN (06:00)
--- NOTE | 2019-07-24 07:00 | NUR ---
PROJECT ADMIN RECEIVED PT ON BED, ALERT, FOLLOWS SIMPLE COMMAND, NON VERBAL, TRACH /VENT DEPENDENT, TOLERATING CURRENT VENT SETTING WELL, O2 SAT WNL, FENTANYL AND VERSED GTT INFUSING, R UPPER ARM PICC LINE AND R FEMORAL HD CATH SITES, CLEAN, DRY AND INTACT, PT IS NPO FOR PEG PLACEMENT TODAY , HOB ELEVATED, BINGHAM DRINING TO GRAVITY, SR UP x3, CALL LIGHT WITHIN EASY REACH, BED LOCKED AND IN LOWEST POSITION, CONTINUE TO MONITOR .
[2019-07-24] MEDS: LEVOTHYROXINE SODIUM 75 MCG TABLET PO SCH (07:30)
[2019-07-24] MEDS: SEVELAMER CARBONATE 0.8 GM POWD.PACK GT SCH ×3 (08:00→17:17)
[2019-07-24] MEDS: PANTOPRAZOLE 40 MG VIAL IV SCH (08:14)
[2019-07-24] MEDS: DOCUSATE SODIUM LIQ 100 MG/10 ML UDC NG SCH ×2 (09:00→17:00)
[2019-07-24] MEDS: HEPARIN SODIUM, PORCINE 5000 UNITS/1 ML VIAL SQ SCH ×2 (09:00→21:01)
--- NOTE | 2019-07-24 12:23 | NUR ---
RT NOTE Pt rec'd trached on [facility] vent on AC mode. Pt shows no signs of resp distress or sob. Trach is patent and secured. Pt sx'd for mod amt of pale yellow secretions. Alarms are set and audible. Vent plugged into red outlet. Ambu bag bedside. Will continue to monitor. Addendum: 07/24/19 at 1223 by RODRIGO MCFARLANE RT Amended: Links added.
--- NOTE | 2019-07-24 15:32 | NUR ---
RN NOTES DR HOOK AND OR TEAM AT THE BEDSIDE FOR GT TUBE PLACEMENT .
--- NOTE | 2019-07-24 17:00 | NUR ---
RN NOTES PEG SITE CLEAN, AND DRY, CONTINUE TO MONITOR .
--- NOTE | 2019-07-24 18:26 | NUR ---
RN NOTES VSS STABLE, NO DISTRESS NOTED , PT ON VERSED AND FENTANYL GTT, PEG SITE CLEAN, DRY AND INTACT, SR UP X3, CALL LIGHT WITHIN EASY REACH, BED LOCKED AND IN LOWEST POSITION, WILL ENDOSE TO CLAY MACHINE OPERATOR NURSE FOR CONTINUITY OF CARE.
--- NOTE | 2019-07-24 19:20 | NUR ---
RT NOTES PT RECEIVED TRACHED ON [facility] VENT ON CHARTED SETTINGS. NO SIGNS OF RESP DISTRESS/SOB NOTED. AIRWAY PATENT AND SECURED. PT SUCTIONED. BREATHING TX GIVEN. ALARMS SET AND AUDIBLE. VENT CONNECTED TO RED OUTLET. AMBUBAG AND SPARE TRACH AT BEDSIDE. WILL CONT TO MONITOR. Addendum: 07/24/19 at 1932 by STEVE BOLTON RT Amended: Links added.
--- NOTE | 2019-07-24 20:00 | NUR ---
BEE RAISER Received patient awake alert non verbal follows simple commands.No distress noted.VSS. SR.Normotensive.Maintained on full vent support via trach.Prescribed vent settings well tolerated.SPO2 96%-97%.S/P peg placement and site intact.No bleeding or hematoma noted.Patient on Versed gtt and Fentanyl gtt infusing via DORY PICC LINE.Site intact. Scrotum swollen kept elevated.FC to gravity.Will turned and repositioned Q 2 hrs for comfort and skin issues.Continue monitoring.
--- NOTE | 2019-07-24 22:00 | NUR ---
TEA PLANTATION WORKER Per SUZY HD RN Youth Services Specialist, the HD for this patient will be done in AM since lab values not so critical.
[2019-07-25] VITALS (40 sets, daily range): BP systolic 105–152; BP diastolic 58–101
[2019-07-25] MEDS: LORAZEPAM INJ 2 MG/ML VIAL IV PRN ×3 (03:13→18:13)
[2019-07-25] MEDS: IPRATROPIUM NEB FS 0.5 MG/2.5 ML AMPUL.NEB NEB SCH ×5 (03:44→19:54)
--- NOTE | 2019-07-25 04:00 | NUR ---
SCOURING PADS SUPERVISOR Patient got agitated and combative during bath with 5 personnel assisting.Ativan administered as PRN.Continue monitoring.
[2019-07-25] MEDS: MIDAZOLAM HCL 100 MG in IV NS 0.9% 80 ML IV PRN ×2 (05:17→18:24)
--- NOTE | 2019-07-25 06:00 | NUR ---
Patient resting comfortably in bed.VSS.SR.Oral care done.Trach dressing changed. Secretions suctioned PRN.Versed gtt and fentanyl gtt infusing well.Turned and repositioned.
--- NOTE | 2019-07-25 07:15 | NUR ---
RN NOTE: Received patient in bed, asleep, but easily wakes up with verbal cues and tactile stimuli. On mechanical ventilator and was saturating well on the current vent setting. HOB elevated. On HD daily. (R) UA PICC line was noted in placed infusing Fentanyl and Versed drip per MD order. Patient nods and shakes his head whenever he was asked with simple yes or no questions. Patient tried to mouthwords, but sometimes unable to express himself. Patient with episodes of agitation, and redirectable at times. (R) femoral HD cath was in placed with pigtail. Link catheter with yellow urine draining to gravity. Will monitor behavior during the day. Patient on filippo mattress for skin management and will turn and reposition q2hr.
[2019-07-25] MEDS ORDERED: PHARMACY TO CHANGE PO MEDS TO GT/NG XX PRN ×2 (08:00)
[2019-07-25] MEDS: PANTOPRAZOLE 40 MG VIAL IV SCH (08:15)
[2019-07-25] MEDS: LEVOTHYROXINE SODIUM 75 MCG TABLET GT SCH (08:15)
[2019-07-25] MEDS: SEVELAMER CARBONATE 0.8 GM POWD.PACK GT SCH ×3 (08:16→17:35)
[2019-07-25] MEDS: DOCUSATE SODIUM LIQ 100 MG/10 ML UDC NG SCH ×2 (08:16→17:35)
[2019-07-25] MEDS: HEPARIN SODIUM, PORCINE 5000 UNITS/1 ML VIAL SQ SCH ×2 (08:17→20:59)
--- NOTE | 2019-07-25 09:00 | NUR ---
RN NOTE: Patient was waking up while on Fentanyl and Versed drip. Not a candidate for sedation vacation.
[2019-07-25] MEDS: JEVITY 1.2 CAL 1,000 ML BOTTLE GT PRN (09:19)
--- NOTE | 2019-07-25 10:00 | NUR ---
RN NOTE: Received a telephone call from mother Thornton and gave her an update regarding the patient's condition and GT feeding was started today per MD order, and patient was currently scheduled for daily hemodialysis.
[2019-07-25 10:16] LABS: CREATININE 4.9 mg/dL (0.6-1.3); MAGNESIUM 2.4 mg/dL (1.8-2.4); PHOSPHORUS 6.4 mg/dL (2.5-4.9); POTASSIUM 4.5 mmol/L (3.5-5.1)
[2019-07-25 10:36] LABS: BASOPHILS % (AUTO) 0.6 % (0.0-2.0); EOSINOPHILS % (AUTO) 7.1 % (0.0-6.0); HEMATOCRIT 25 % (39-51); HEMOGLOBIN 8.2 g/dL (13.5-17.5); LYMPHOCYTES # (AUTO) 0.6 /CMM (0.8-4.8); LYMPHOCYTES % (AUTO) 8.5 % (20.0-44.0); MEAN CORPUSCULAR HGB CONC 33 g/dl (31.0-36.0); MEAN CORPUSCULAR VOLUME 90 fL (80-96); MONOCYTES # (AUTO) 0.5 /CMM (0.1-1.30); MONOCYTES % (AUTO) 6.5 % (2.0-12.0); NEUTROPHILS # (AUTO) 5.7 /CMM (1.8-8.9); NEUTROPHILS % (AUTO) 77.3 % (43.0-81.0); PLATELET COUNT (AUTO) 304 /CMM (150-450); RED BLOOD CELL COUNT(AUTO) 2.79 MIL/uL (4.5-6.0); WHITE BLOOD COUNT (AUTO) 7.3 K/uL (4.3-11.0)
[2019-07-25 11:22] LABS: LYMPHOCYTES % (MANUAL) 6 % (16-48); MONOCYTES % (MANUAL) 10 % (0-11.0); NEUTROPHILS % (MANUAL) 74 (42-76)
[2019-07-25 11:23] LABS: EOSINOPHILS % (MANUAL) 9 % (0-4); MYELOCYTES % 1 % (0-0)
--- NOTE | 2019-07-25 12:48 | NUR ---
RN NOTE: Received a telephone call from Dr. Gonzalez (pain management MD) and he was given update regarding this patient's condition and current sedation medications. MD was aware that despite the Fentanyl and Versed drip patient has still been noted with episodes of agitation. Per MD, continue the current Fentanyl and versed drip dose and if patient continued to have agitation he needed the muscle relaxant again. Dr. Hudson will be inform about this.
[2019-07-25] MEDS: IV NS 0.9% 250 ML IV PRN (18:45)
--- NOTE | 2019-07-25 19:37 | NUR ---
RN NOTE: Bedside report was given to Dimitris, RN for continuity of care. Patient remained on Fentanyl and Versed drip. Ativan PRN was administered especially when turning and doing pericare to the patient. No bowel movement during the shift.
--- NOTE | 2019-07-25 19:38 | NUR ---
DEMAND PLANNING ANALYST INITIAL SHIFT NOTES RECEIVED PATIENT IN BED, ASLEEP, EYES CLOSED AT THIS TIME. PATIENT EASILY WAKES TO TACTILE STIMULI, A/0 X2, SOMETIMES ABLE TO NOD YES/NO TO QUESTIONS. TRACH IS MIDLINE AND INTACT, ON MECHANICAL VENTILATION AT PRESCRIBED SETTINGS, TOLERATING WELL, SPO2 WNL. RIGHT UPPER ARM PICC PATENT AND INTACT, ONGOING IV DRIP OF FENTANYL @ 1MCG/KG/HR, AND VERSED DRIP @ 8MG/HR. BEDSIDE TELEMETRY MONITORING SHOWS SINUS RHYTHM 84 BPM. BINGHAM CATHETER PATENT AND INTACT, DRAINING YELLOW URINE WITH SEDIMENTS VIA GRAVITY. GTUBE PATENT AND INTACT, ONGOING TUBE FEEDING AT 65ML/HR, MINIMAL GASTRIC RESIDUALS NOTED. HOB KEPT ELEVATED FOR ASPIRATION PRECAUTIONS, BED IN LOWEST AND LOCKED POSITION. WILL CONTINUE TO CLOSELY MONITOR
[2019-07-25] MEDS: FENTANYL CITRATE IV 2,500 MCG in IV NS 0.9% 200 ML IV PRN (20:06)
[2019-07-26] VITALS (48 sets, daily range): BP systolic 88–139; BP diastolic 55–92
[2019-07-26] MEDS: IPRATROPIUM NEB FS 0.5 MG/2.5 ML AMPUL.NEB NEB SCH ×7 (00:02→23:30)
[2019-07-26] MEDS: LORAZEPAM INJ 2 MG/ML VIAL IV PRN ×3 (02:42→21:41)
--- NOTE | 2019-07-26 03:36 | NUR ---
SECURITY CHECKER NOTES DESPITE ADMINISTRATION OF ATIVAN 2MG IVP, PATIENT REMAINS AGITATED. PATIENT NOTED BE FREQUENTLY REACHING WITH RIGHT HAND FOR TRACH, GTUBE, AND BINGHAM CATHETER. PATIENT UNABLE TO GRASP TRACH AND SHEA TUBING, BINGHAM, AND GTUBE, BUT PATIENT'S HAND NOTED TO BE GETTING STUCK, CAUSING THE TRACH, SHEA AND OTHER LIFE SUSTAINING TUBES TO BE TUGGED/PULLED ON. HIGH RISK FOR SELF DECANNULATION. ATTEMPTED TO EXPLAIN TO PATIENT THAT HE IS HIGH RISK FOR SELF DECANNULATION. PATIENT NODS YES TO UNDERSTANDING, BUT STILL CONTINUES TO REACH FOR TUBES. BILATERAL SOFT WRIST RESTRAINTS APPLIED FOR PATIENT SAFETY TO PREVENT SELF-HARM.
[2019-07-26 04:43] LABS: BASOPHILS # (AUTO) 0.1 /CMM (0.0-0.2); BASOPHILS % (AUTO) 0.8 % (0.0-2.0); EOSINOPHILS % (AUTO) 6.1 % (0.0-6.0); HEMATOCRIT 27 % (39-51); LYMPHOCYTES # (AUTO) 0.7 /CMM (0.8-4.8); LYMPHOCYTES % (AUTO) 8.4 % (20.0-44.0); MEAN CORPUSCULAR HGB CONC 33 g/dl (31.0-36.0); MEAN CORPUSCULAR VOLUME 88 fL (80-96); MONOCYTES # (AUTO) 0.6 /CMM (0.1-1.30); MONOCYTES % (AUTO) 6.7 % (2.0-12.0); NEUTROPHILS # (AUTO) 6.6 /CMM (1.8-8.9); PLATELET COUNT (AUTO) 320 /CMM (150-450); RED BLOOD CELL COUNT(AUTO) 3.08 MIL/uL (4.5-6.0); WHITE BLOOD COUNT (AUTO) 8.5 K/uL (4.3-11.0)
[2019-07-26 05:04] LABS: CALCIUM, SERUM 8.8 mg/dL (8.5-10.1); MAGNESIUM 2.6 mg/dL (1.8-2.4); PHOSPHORUS 5.7 mg/dL (2.5-4.9); POTASSIUM 4.1 mmol/L (3.5-5.1)
--- NOTE | 2019-07-26 05:33 | NUR ---
RT Pt received trached on mechanical ventilation with noted settings. Pt is awake and responds to stimuli when suctioned. Vent is plugged into red outlet. No SOB or respiratory distress noted. Addendum: 07/26/19 at 0533 by STEVEN HALL RT Amended: Links added.
[2019-07-26] MEDS: MIDAZOLAM HCL 100 MG in IV NS 0.9% 80 ML IV PRN ×2 (06:28→19:13)
[2019-07-26] MEDS: JEVITY 1.2 CAL 1,000 ML BOTTLE GT PRN (06:37)
--- NOTE | 2019-07-26 07:30 | NUR ---
RN NOTE: Received patient in bed, asleep, but easily wakes up with verbal cues and tactile stimuli. On mechanical ventilator and was saturating well on the current vent setting. HOB elevated. On HD daily. (R) UA PICC line was noted in placed infusing Fentanyl and Versed drip per MD order. Patient was noted with episodes of agitation, redirectable at times. Patient nods and shakes his head whenever he was asked with simple yes or no questions. He would try to mouthwords, but sometimes unable to express himself. (R) femoral HD cath was in placed with pigtail. Link catheter with yellow urine draining to gravity. On filippo mattress for skin management. Will monitor behavior during the day.
--- NOTE | 2019-07-26 07:50 | NUR ---
RN NOTE: Received a telephone call from Hillary, mother of the patient and gave her an update regarding the patient's condition. Informed her about the patient's episodes of being agitated and uncooperative behavior during bedside care. Patient was quiet and calm at the moment and was asleep at this time. Patient will be informed about the phone call of his mother Hillary.
--- NOTE | 2019-07-26 07:54 | NUR ---
WOUND CARE CONSULT/FOLLOW UP: PT SEEN FOR SACRAL WOUND WHICH IS UNSTAGEABLE WITH NO SIGN OF INFECTION AND ALSO WOUND AT BASE OF PENIS WITH PROFOUND EDEMA TO PENIS AND SCROTUM. RECOMMENDATIONS MADE FOR WOUND CARE AND SKIN PROTECTION. DISCUSSED WITH NURSING STAFF. RECOMMEND SURGICAL CONSULT. DR MEGGAN TORRES NOTIFIED OF CONSULT REQUEST. PT CONTINUES TO HAVE MULTIPLE CO-MORBIDITIES INCLUDING SEPSIS, SEPTIC SHOCK WITH PNEUMONIA, RENAL FAILURE (ON HEMODIALYSIS), RESPIRATORY FAILURE AND GENERALIZED EDEMA. PT AGITATED AT TIMES. DUE TO MULTIPLE CO-MORBIDITIES, FURTHER SKIN BREAKDOWN MAY BE UNAVOIDABLE. PT ON MADDISON ISOFLEX LOW AIRLOSS BED. ALL SKIN PROTECTION MEASURES IN PLACE. WILL FOLLOW. MD IN AGREEMENT WITH PLAN OF CARE. Addendum: 07/26/19 at 0800 by SONALI JEFFREY WNDNU Amended: Links added.
[2019-07-26] MEDS: PANTOPRAZOLE 40 MG VIAL IV SCH (08:16)
[2019-07-26] MEDS: ACETAMINOPHEN 650 MG/20.3 ML UDC NG PRN (08:17)
[2019-07-26] MEDS: LEVOTHYROXINE SODIUM 75 MCG TABLET GT SCH (08:17)
[2019-07-26] MEDS: DOCUSATE SODIUM LIQ 100 MG/10 ML UDC NG SCH ×2 (08:18→16:54)
[2019-07-26] MEDS: SEVELAMER CARBONATE 0.8 GM POWD.PACK GT SCH ×3 (08:18→17:44)
[2019-07-26] MEDS: HEPARIN SODIUM, PORCINE 5000 UNITS/1 ML VIAL SQ SCH ×2 (08:20→21:40)
--- NOTE | 2019-07-26 09:10 | NUR ---
RN NOTE: Patient has episodes of waking up while on Fentanyl and Versed drip. Not a candidate for sedation vacation at this time.
[2019-07-26] MEDS: NEOMY SULF/BACITRAC ZN/POLY 15 GM TUBE TP SCH (09:20)
--- NOTE | 2019-07-26 09:30 | NUR ---
RN NOTE: Dr. Goldstein, psychiatrist came and assessed the patient at the bedside. MD was given pertinent information regarding the patient and the reason for the consultation. MD with new order to start Seroquel on the patient.
--- NOTE | 2019-07-26 10:09 | NUR ---
RN NOTE: Received a telephone call from Hillary, mother and according to her she would be visiting the patient by tomorrow afternoon around 2:00 to 2:30 pm and she would want to be the patient's DPOA. Called and spoke with Nehal, social work case manager was informed about this and she said that she will prepare the paperwork for tomorrow.
[2019-07-26] MEDS: QUETIAPINE FUMARATE 25 MG TABLET GT SCH ×4 (11:36→21:26)
--- NOTE | 2019-07-26 15:00 | NUR ---
RN NOTE: Patient has been quiet and sedated at this time, but still noted with a (B) soft wrist restraints for safety purposes. Will continue to monitor the patient's behavior.
[2019-07-26] MEDS: PROSOURCE / PROSTAT (PYXIS) 30 ML UDC GT SCH ×2 (15:03→16:54)
[2019-07-26] MEDS: AMPICILLIN SODIUM 2 GM in IV NS 0.9% 100 ML IV SCH (16:54)
[2019-07-26] MEDS: NEPRO 1,000 ML BOTTLE GT PRN (17:41)
[2019-07-26] MEDS: FENTANYL CITRATE IV 2,500 MCG in IV NS 0.9% 200 ML IV PRN (17:50)
--- NOTE | 2019-07-26 21:45 | NUR ---
RN NOTE: Patient was noted awake, with confusion and was very agitated at this time. Redirected the patient and spoke with him regarding all the medical tubings and lines that he was attached to at this time. But the patient would not follow simple commands and a PRN Ativan was administered to manage the patient's behavior.
[2019-07-27] VITALS (46 sets, daily range): BP systolic 92–185; BP diastolic 60–141
[2019-07-27] MEDS: AMPICILLIN SODIUM 2 GM in IV NS 0.9% 100 ML IV SCH ×3 (00:35→17:57)
--- NOTE | 2019-07-27 02:41 | NUR ---
RN NOTE: Patient asleep at this time. Quiet and calm and sedated in the bed. Will continue to monitor.
[2019-07-27] MEDS: IPRATROPIUM NEB FS 0.5 MG/2.5 ML AMPUL.NEB NEB SCH ×5 (03:30→20:25)
[2019-07-27 04:17] LABS: BASOPHILS # (AUTO) 0.1 /CMM (0.0-0.2); BASOPHILS % (AUTO) 0.9 % (0.0-2.0); EOSINOPHILS % (AUTO) 5.8 % (0.0-6.0); HEMATOCRIT 26 % (39-51); HEMOGLOBIN 8.5 g/dL (13.5-17.5); LYMPHOCYTES # (AUTO) 1.1 /CMM (0.8-4.8); LYMPHOCYTES % (AUTO) 13.5 % (20.0-44.0); MEAN CORPUSCULAR HGB CONC 33 g/dl (31.0-36.0); MEAN CORPUSCULAR VOLUME 88 fL (80-96); MONOCYTES # (AUTO) 0.6 /CMM (0.1-1.30); MONOCYTES % (AUTO) 7.5 % (2.0-12.0); NEUTROPHILS # (AUTO) 5.8 /CMM (1.8-8.9); NEUTROPHILS % (AUTO) 72.3 % (43.0-81.0); PLATELET COUNT (AUTO) 300 /CMM (150-450); RED BLOOD CELL COUNT(AUTO) 2.93 MIL/uL (4.5-6.0); WHITE BLOOD COUNT (AUTO) 8.1 K/uL (4.3-11.0)
[2019-07-27 04:29] LABS: CALCIUM, SERUM 8.6 mg/dL (8.5-10.1); CREATININE 3.9 mg/dL (0.6-1.3); MAGNESIUM 2.4 mg/dL (1.8-2.4); POTASSIUM 3.6 mmol/L (3.5-5.1)
--- NOTE | 2019-07-27 07:00 | NUR ---
RN NOTE: Bedside report was given to SHERYL Franklin for continuity of care. Patient remained awake, alert and able to follow simple commands, but with periods of confusion. Occult blood stool was sent to lab.
--- NOTE | 2019-07-27 07:33 | NUR ---
RT Pt received trached on mechanical ventilation with noted settings. Pt is awake and alert. HHN tx given inline wit no adverse reactions. Vent is plugged into red outlet. No SOB or respiratory distress noted. Addendum: 07/27/19 at 0815 by STEVEN HALL RT Amended: Links added.
[2019-07-27] MEDS: MIDAZOLAM HCL 100 MG in IV NS 0.9% 80 ML IV PRN ×2 (07:53→20:13)
--- NOTE | 2019-07-27 08:00 | NUR ---
ICU/RN INITIAL NOTES,AM RECEIVED BEDSIDE REPORT FROM NIGHT NURSE. PT ALERT, FOLLOWS SIMPLE COMMANDS, CONFUSED. TRACH TO VENT WITH SETTINGS ORDERED BY MD, NO DISTRESS NOTED AT THIS TIME. RIGHT UPPER ARM PICC LINE PATENT AND INTACT, NO S/S OF INFECTION OR INFILTRATION NOTED. FENTANYL AND VERSED INFUSING PER PROTOCOL. GTUBE IN PLACE, PLACEMENT VERIFIED, TUBE FEEDING INFUSING, TOLERATING WELL. HD ONGOING AT THIS TIME. ALL NEEDS WILL BE ATTENDED TO, SAFETY MEASURES TAKEN, BED IN LOW POSITION, SIDE RAILS UP, CALL LIGHT WITHIN REACH. WILL CONTINUE CARE.
[2019-07-27] MEDS: PANTOPRAZOLE 40 MG VIAL IV SCH (08:19)
[2019-07-27] MEDS: QUETIAPINE FUMARATE 25 MG TABLET GT SCH ×4 (08:19→21:21)
[2019-07-27] MEDS: SEVELAMER CARBONATE 0.8 GM POWD.PACK GT SCH ×3 (08:19→17:57)
[2019-07-27] MEDS: LEVOTHYROXINE SODIUM 75 MCG TABLET GT SCH (08:19)
[2019-07-27] MEDS: DOCUSATE SODIUM LIQ 100 MG/10 ML UDC NG SCH ×2 (08:19→17:00)
[2019-07-27] MEDS: PROSOURCE / PROSTAT (PYXIS) 30 ML UDC GT SCH ×3 (08:20→17:53)
[2019-07-27] MEDS: HEPARIN SODIUM, PORCINE 5000 UNITS/1 ML VIAL SQ SCH ×2 (08:21→21:24)
[2019-07-27] MEDS: NEOMY SULF/BACITRAC ZN/POLY 15 GM TUBE TP SCH (08:22)
--- NOTE | 2019-07-27 09:00 | NUR ---
ICU/RN: SEDATION VACATION NO SEDATION VACATION NEEDED. PT ALERT, FOLLOWS SIMPLE COMMANDS OF 8MG/HR OF VERSED. WILL CONTINUE TO MONITOR AND ASSESS
--- NOTE | 2019-07-27 09:40 | NUR ---
ICU/RN: PER , FENTANYL TITRATED OFF. WILL CONTINUE TO MONITOR
--- NOTE | 2019-07-27 11:45 | NUR ---
ICU/RN: PT NAUSEOUS, ZOFRAN GIVEN. WILL REASSESS
--- NOTE | 2019-07-27 16:00 | NUR ---
ICU/RN: PT NOTED WITH 2 EPISODES OF VOMITING, TUBE FEEDING TURNED OFF, WILL REASSESS. ZOFRAN GIVEN.
[2019-07-27] MEDS: NEPRO 1,000 ML BOTTLE GT PRN (17:57)
--- NOTE | 2019-07-27 19:30 | NUR ---
ICU/RN: ENDING NOTES,AM RECEIVED PATIENT IN BED ON TRACH TO VENT, ON SETTINGS ORDERED BY MD, NO DISTRESS NOTED. RIGHT UPPER ARM PICC LINE PATENT AND INTACT, VERSED INFUSING PER PROTOCOL, VERIFIED WITH DAY NURSE. RIGHT FEMORAL PICC LINE, PATENT AND INTACT. SAFETY MEASURES TAKEN, BED IN LOW POSITION, SIDE RAILS UP, CALL LIGHT WITHIN REACH, WILL CONTINUE CARE.
--- NOTE | 2019-07-27 19:39 | NUR ---
ICU/RN: ENDING NOTES,AM BEDSIDE REPORT ENDORSED TO NIGHT NURSE FOR RENAY. PT TRACH TO VENT, ON SETTINGS ORDERED BY MD, NO DISTRESS NOTED. RIGHT UPPER ARM PICC LINE PATENT AND INTACT, VERSED INFUSING PER PROTOCOL, VERIFIED WITH NIGHT NURSE. ALL NEEDS ATTENDED TO, SAFETY MEASURES TAKEN, BED IN LOW POSITION, SIDE RAILS UP, CALL LIGHT WITHIN REACH, WILL CONTINUE CARE.
[2019-07-27] MEDS: LORAZEPAM INJ 2 MG/ML VIAL IV PRN (20:48)
--- NOTE | 2019-07-27 23:12 | NUR ---
PATIENT HAS CONTINUES EPISODES OF VOMITING, TUBE FEEDING TURNED OFF MD NOTIFIED, WILL REASSESS. ZOFRAN GIVEN.
[2019-07-27] MEDS: diphenhydrAMINE HCL 50 MG/ML VIAL IV PRN (23:42)
[2019-07-28] VITALS (41 sets, daily range): BP systolic 88–187; BP diastolic 46–124
[2019-07-28] MEDS: IPRATROPIUM NEB FS 0.5 MG/2.5 ML AMPUL.NEB NEB SCH ×7 (00:18→23:13)
[2019-07-28] MEDS: AMPICILLIN SODIUM 2 GM in IV NS 0.9% 100 ML IV SCH ×3 (01:17→17:13)
[2019-07-28] MEDS: LORAZEPAM INJ 2 MG/ML VIAL IV PRN ×2 (02:46→22:23)
--- NOTE | 2019-07-28 03:50 | NUR ---
PATIENT HAD BIG EPISODES OF VOMITING DURING CLEANING, TUBE FEEDING STILL OFF, CONNECTED THE G TUBE TO THE SUCTION AND OVER 350CC OF COFFEE BROWN FLUID WAS DRAINED. NOTIFIED. WILL REASSESS.
[2019-07-28 05:42] LABS: BASOPHILS # (AUTO) 0.1 /CMM (0.0-0.2); BASOPHILS % (AUTO) 0.4 % (0.0-2.0); EOSINOPHILS % (AUTO) 0.5 % (0.0-6.0); HEMATOCRIT 26 % (39-51); HEMOGLOBIN 8.5 g/dL (13.5-17.5); LYMPHOCYTES # (AUTO) 0.8 /CMM (0.8-4.8); LYMPHOCYTES % (AUTO) 5.8 % (20.0-44.0); MEAN CORPUSCULAR HGB CONC 33 g/dl (31.0-36.0); MEAN CORPUSCULAR VOLUME 88 fL (80-96); MONOCYTES # (AUTO) 0.9 /CMM (0.1-1.30); MONOCYTES % (AUTO) 6.5 % (2.0-12.0); NEUTROPHILS # (AUTO) 11.8 /CMM (1.8-8.9); NEUTROPHILS % (AUTO) 86.8 % (43.0-81.0); PLATELET COUNT (AUTO) 294 /CMM (150-450); RED BLOOD CELL COUNT(AUTO) 2.94 MIL/uL (4.5-6.0); WHITE BLOOD COUNT (AUTO) 13.5 K/uL (4.3-11.0)
[2019-07-28 05:46] LABS: CALCIUM, SERUM 8.9 mg/dL (8.5-10.1); CREATININE 2.2 mg/dL (0.6-1.3); POTASSIUM 4.1 mmol/L (3.5-5.1)
--- NOTE | 2019-07-28 08:00 | NUR ---
ICU/RN AM SHIFT OPENING NOTES RECEIVED PT AWAKE IN BED, OPEN EYES, RESTLESS, NO GRIMACING OR ACUTE CHANGE OF CONDITION NOTED. ON VENTILATOR WITH RATES SET PRESCRIBED, RESPIRATIONS EVEN AND UNLABORED, SATURATING @ 99%, LUNG SOUNDS DIMINISHED, SUCTIONED FOR AIRWAY CLEARANCE. ON TELE WITH SINUS TACHY. PT WITH ON GOING IV INFUSION OF VERSED @ 8MG/HR, PICC LINE POSITIVE OF BLOOD RETURN, FLUSHED, PATENT WITH NO S/S OF INFECTION. BINGHAM CATHETER INTACT WITH YELLOW URINE OUTPUT. GT FEEDING HELD D/T REPORTED VOMITING PM SHIFT WITH COFFEE GROUNDS CONTENT, GT ON INTERMITTENT SUCTIONING, NOTED WITH MINIMAL OUTPUT. NOTED WITH GENERALIZED EDEMA, EXTREMITIES ELEVATED ON PILLOWS. BILATERAL WRIST RESTRAINTS IN PLACED, REMOVED TO CHECK FOR CIRCULATION AND COMFORT, THEN PLACED BACK. WILL GIVE SCHEDULED AM MEDS. CL WITH REACHED AND SAFETY MAINTAINED. ON GOING MONITORING.
--- NOTE | 2019-07-28 08:35 | NUR ---
RN ENDING NOTES, PATIENT IN BED ON TRACH TO VENT, ON SETTINGS ORDERED BY MD, NO DISTRESS NOTED. RIGHT UPPER ARM PICC LINE PATENT AND INTACT, VERSED INFUSING PER PROTOCOL, AGITATED DURING CELL GENETICIST. MONITOR SHOWS ST WITH HR OD 115. SAFETY MEASURES TAKEN, BED IN LOW POSITION, SIDE RAILS UP, CALL LIGHT WITHIN REACH, ENDORSED THE PATIENT TO AM RN FOR RENAY.
[2019-07-28] MEDS: MIDAZOLAM HCL 100 MG in IV NS 0.9% 80 ML IV PRN ×2 (09:35→22:19)
[2019-07-28] MEDS: SEVELAMER CARBONATE 0.8 GM POWD.PACK GT SCH ×3 (10:13→17:13)
[2019-07-28] MEDS: DOCUSATE SODIUM LIQ 100 MG/10 ML UDC NG SCH ×2 (10:13→17:13)
[2019-07-28] MEDS: PANTOPRAZOLE 40 MG VIAL IV SCH (10:13)
[2019-07-28] MEDS: QUETIAPINE FUMARATE 25 MG TABLET GT SCH ×4 (10:14→20:57)
[2019-07-28] MEDS: LEVOTHYROXINE SODIUM 75 MCG TABLET GT SCH (10:14)
[2019-07-28] MEDS: PROSOURCE / PROSTAT (PYXIS) 30 ML UDC GT SCH ×3 (10:15→17:14)
[2019-07-28] MEDS: HEPARIN SODIUM, PORCINE 5000 UNITS/1 ML VIAL SQ SCH ×2 (10:16→20:58)
[2019-07-28] MEDS: NEOMY SULF/BACITRAC ZN/POLY 15 GM TUBE TP SCH (10:36)
[2019-07-28] MEDS: SILVER SULFADIAZINE CREAM 25 GM TUBE TP SCH (10:36)
--- NOTE | 2019-07-28 13:00 | NUR ---
ICU/RN ROUNDS - DR. DOUGLAS UPDATED PT'S CONDITION. PT SEEN & EXAMINED BY DR. DOUGLAS, PER MD WILL INCREASE DOSE OF SEROQUEL. MONITORING CONTINUED.
--- NOTE | 2019-07-28 16:30 | NUR ---
ICU/[facility] PT TOLERATED DIALYSIS, REMOVED 3 LITERS OF FLUIDS.
[2019-07-28] MEDS: CLONIDINE HCL 0.3 MG/24H PTWK 1 EA PATCH TD SCH (17:14)
--- NOTE | 2019-07-28 19:26 | NUR ---
RECEIVED PT TRACH'D SHILEY 8 XLT ON [facility] VENT WITH NOTED SETTINGS PER MD ORDER. PT IS AWAKE , NON VERBAL BUT FOLLOW COMMANDS COMMISSION SALES ASSOCIATE DONE. AMBU BAG AT BEDSIDE. VENT ALARMS ON AND AUDIBLE. SUCTIONED DONE PRN. BREATHING TX GIVEN ORDERED. NO ADVERSE REACTIONS NOTED. NO RESPIRATORY DISTRESS NOTED AT THIS TIME. WILL CONTINUE TO MONITOR THE PT T/O SHIFT
--- NOTE | 2019-07-28 19:26 | NUR ---
ICU/RN AM SHIFT CLOSING NOTES NO ACUTE CHANGE OF CONDITION NOTED DURING THE SHIFT. ALL NEEDS MET. PT ENDORSED TO PM NURSE TO CONTINUE CARE. CL WITHIN REACHED AND SAFETY MAINTAINED.
[2019-07-29] VITALS (44 sets, daily range): BP systolic 80–160; BP diastolic 48–139
[2019-07-29] MEDS: AMPICILLIN SODIUM 2 GM in IV NS 0.9% 100 ML IV SCH ×3 (00:44→17:34)
[2019-07-29] MEDS: IPRATROPIUM NEB FS 0.5 MG/2.5 ML AMPUL.NEB NEB SCH ×6 (03:09→23:58)
[2019-07-29 04:55] LABS: BASOPHILS # (AUTO) 0.1 /CMM (0.0-0.2); BASOPHILS % (AUTO) 0.7 % (0.0-2.0); EOSINOPHILS % (AUTO) 2.3 % (0.0-6.0); LYMPHOCYTES # (AUTO) 0.9 /CMM (0.8-4.8); LYMPHOCYTES % (AUTO) 7.3 % (20.0-44.0); MEAN CORPUSCULAR HGB CONC 33 g/dl (31.0-36.0); MEAN CORPUSCULAR VOLUME 89 fL (80-96); MONOCYTES # (AUTO) 0.8 /CMM (0.1-1.30); MONOCYTES % (AUTO) 6.6 % (2.0-12.0); NEUTROPHILS % (AUTO) 83.1 % (43.0-81.0); PLATELET COUNT (AUTO) 249 /CMM (150-450); RED BLOOD CELL COUNT(AUTO) 2.29 MIL/uL (4.5-6.0)
[2019-07-29 05:01] LABS: CALCIUM, SERUM 8.3 mg/dL (8.5-10.1); CREATININE 1.8 mg/dL (0.6-1.3); POTASSIUM 3.2 mmol/L (3.5-5.1)
[2019-07-29 06:03] LABS: HEMATOCRIT 20 % (39-51); HEMOGLOBIN 6.7 g/dL (13.5-17.5)
[2019-07-29] MEDS: LEVOTHYROXINE SODIUM 75 MCG TABLET GT SCH (06:36)
[2019-07-29 06:40] LABS: LYMPHOCYTES % (MANUAL) 5 % (16-48); MONOCYTES % (MANUAL) 5 % (0-11.0); NEUTROPHILS % (MANUAL) 90 (42-76)
--- NOTE | 2019-07-29 07:30 | NUR ---
HAD UNEVENTFUL NIGHT, CONTINUES ON VENTILATOR ON AC MODE WITH OXYGEN @ 40%, SATS > 93%. REMAINS IN NSR.CONTINUES ON VERSED GTT
--- NOTE | 2019-07-29 07:39 | NUR ---
INFORMED OF LOW B/P ORDERS OBTAINED
[2019-07-29] MEDS ORDERED: IV NS 0.9% 500 ML IV ONE (08:00)
[2019-07-29] MEDS: QUETIAPINE FUMARATE 25 MG TABLET GT SCH ×4 (09:50→20:54)
[2019-07-29] MEDS: POTASSIUM CL. PREMIX PERIPHER. 50 ML IV SCH ×4 (09:50→15:46)
[2019-07-29] MEDS: PANTOPRAZOLE 40 MG VIAL IV SCH (09:50)
[2019-07-29] MEDS: DOCUSATE SODIUM LIQ 100 MG/10 ML UDC NG SCH ×2 (09:50→17:00)
[2019-07-29] MEDS: HEPARIN SODIUM, PORCINE 5000 UNITS/1 ML VIAL SQ SCH ×2 (09:51→21:21)
[2019-07-29] MEDS: SEVELAMER CARBONATE 0.8 GM POWD.PACK GT SCH ×3 (09:51→17:39)
[2019-07-29] MEDS: PROSOURCE / PROSTAT (PYXIS) 30 ML UDC GT SCH ×3 (09:55→17:33)
[2019-07-29] MEDS: SILVER SULFADIAZINE CREAM 25 GM TUBE TP SCH (09:55)
[2019-07-29] MEDS: NEOMY SULF/BACITRAC ZN/POLY 15 GM TUBE TP SCH (09:55)
[2019-07-29] MEDS: MIDAZOLAM HCL 100 MG in IV NS 0.9% 80 ML IV PRN (11:28)
[2019-07-29] MEDS ORDERED: NEPRO 1,000 ML BOTTLE GT PRN (18:00)
--- NOTE | 2019-07-29 19:30 | NUR ---
COOLING PAN TENDER NOTES PATIENT IN BED ON TRACH TO VENT ON SETTINGS ORDERED BY MD. PATIENT IS AWAKE AND ORIENTED . PATIENT RESPONDS TO QUESTIONS PATIENT HAS DORY PICC LINE PATENT AND INTACT. VERSED INFUSING PER PROTOCOL. PATIENT IS CALM AND COOPERATIVE. BED LOCKED AND LOWEST POSITION CALL LIGHT WITH IN REACH ALL SAFETY MEASURE IMPLEMENTED PER HOSPITAL POLICY
[2019-07-29] MEDS: LORAZEPAM INJ 2 MG/ML VIAL IV PRN (21:27)
[2019-07-30] VITALS (36 sets, daily range): BP systolic 88–144; BP diastolic 26–101
[2019-07-30] MEDS: AMPICILLIN SODIUM 2 GM in IV NS 0.9% 100 ML IV SCH ×3 (00:14→17:10)
[2019-07-30] MEDS: ACETAMINOPHEN 650 MG/20.3 ML UDC NG PRN (00:18)
[2019-07-30] MEDS: IPRATROPIUM NEB FS 0.5 MG/2.5 ML AMPUL.NEB NEB SCH ×5 (03:40→19:43)
[2019-07-30] MEDS: MIDAZOLAM HCL 100 MG in IV NS 0.9% 80 ML IV PRN (04:20)
[2019-07-30 04:32] LABS: BASOPHILS # (AUTO) 0.1 /CMM (0.0-0.2); BASOPHILS % (AUTO) 0.6 % (0.0-2.0); EOSINOPHILS % (AUTO) 3.1 % (0.0-6.0); HEMATOCRIT 21 % (39-51); HEMOGLOBIN 7.2 g/dL (13.5-17.5); LYMPHOCYTES % (AUTO) 9.5 % (20.0-44.0); MEAN CORPUSCULAR HGB CONC 34 g/dl (31.0-36.0); MEAN CORPUSCULAR VOLUME 87 fL (80-96); MONOCYTES # (AUTO) 0.6 /CMM (0.1-1.30); MONOCYTES % (AUTO) 5.6 % (2.0-12.0); NEUTROPHILS # (AUTO) 8.4 /CMM (1.8-8.9); NEUTROPHILS % (AUTO) 81.2 % (43.0-81.0); PLATELET COUNT (AUTO) 234 /CMM (150-450); RED BLOOD CELL COUNT(AUTO) 2.44 MIL/uL (4.5-6.0); WHITE BLOOD COUNT (AUTO) 10.4 K/uL (4.3-11.0)
[2019-07-30 05:02] LABS: CALCIUM, SERUM 8.1 mg/dL (8.5-10.1); CREATININE 1.6 mg/dL (0.6-1.3); POTASSIUM 2.9 mmol/L (3.5-5.1)
--- NOTE | 2019-07-30 05:37 | NUR ---
RT NOTE Pt rec'd trached on [facility] vent on AC mode. Pt shows no signs of resp distress or sob. Trach is patent and secured. Pt sx'd for mod amt of pale yellow secretions. Alarms are set and audible. Vent plugged into red outlet. Ambu bag bedside. Will continue to monitor. Addendum: 07/30/19 at 0537 by RODRIGO MCFARLANE RT Amended: Links added.
[2019-07-30] MEDS: LEVOTHYROXINE SODIUM 75 MCG TABLET GT SCH (06:32)
--- NOTE | 2019-07-30 07:00 | NUR ---
Received patient asleep in bed. Trach intact and patent, connected to vent, AC mode tolerating well. On Gtube feeding through PEG. tolerating well, no emesis noted. Link cath intact and patent, draining dario colored urine. Versed drip @ 5mg infusing well to the right upper arm PICC line. NSR on bolt header. No acute distress noted.
[2019-07-30] MEDS: SEVELAMER CARBONATE 0.8 GM POWD.PACK GT SCH ×3 (08:43→17:09)
[2019-07-30] MEDS: PANTOPRAZOLE 40 MG VIAL IV SCH (09:55)
[2019-07-30] MEDS: DOCUSATE SODIUM LIQ 100 MG/10 ML UDC NG SCH ×2 (09:55→17:09)
[2019-07-30] MEDS: POTASSIUM CHLORIDE 20 MEQ POWDER PACKET GT SCH ×3 (09:56→13:02)
[2019-07-30] MEDS: QUETIAPINE FUMARATE 25 MG TABLET GT SCH ×4 (09:58→20:50)
[2019-07-30] MEDS: PROSOURCE / PROSTAT (PYXIS) 30 ML UDC GT SCH ×3 (11:20→17:11)
[2019-07-30] MEDS: SILVER SULFADIAZINE CREAM 25 GM TUBE TP SCH (11:22)
[2019-07-30] MEDS: NEOMY SULF/BACITRAC ZN/POLY 15 GM TUBE TP SCH (11:22)
--- NOTE | 2019-07-30 11:30 | NUR ---
Versed drip discontinued after titration of 2 mg per hour per Dr. Mcgowan. Patient on prn ativan 2 mg IV push. Patient is calm and cooperative. Follows commands.
[2019-07-30] MEDS: LORAZEPAM INJ 2 MG/ML VIAL IV PRN ×2 (13:02→20:51)
--- NOTE | 2019-07-30 19:00 | NUR ---
Patient is awake and alert in bed. Tolerating well vent settings through trach tube. Gtube feeding well. Link cath intact and patent. Report given to Herve SAUCEDO with all questions answered.
[2019-07-31] VITALS (25 sets, daily range): BP systolic 116–180; BP diastolic 64–140
[2019-07-31] MEDS: IPRATROPIUM NEB FS 0.5 MG/2.5 ML AMPUL.NEB NEB SCH ×6 (00:18→19:47)
--- NOTE | 2019-07-31 00:23 | NUR ---
RT NOTE Pt rec'd trached on [facility] vent on AC mode. No resp distress or sob noted. Pt sx'd for thick mod amt of pale yellow secretions. Trach is patent and secured. Alarms are set and audible. Vent plugged into red outlet. Ambu bag bedside. Will continue to monitor closely. Addendum: 07/31/19 at 0024 by RODRIGO MCFARLANE RT Amended: Links added.
[2019-07-31] MEDS: AMPICILLIN SODIUM 2 GM in IV NS 0.9% 100 ML IV SCH ×3 (00:54→16:30)
[2019-07-31] MEDS: LORAZEPAM INJ 2 MG/ML VIAL IV PRN ×4 (03:21→20:23)
[2019-07-31 05:12] LABS: CALCIUM, SERUM 8.3 mg/dL (8.5-10.1); CREATININE 1.3 mg/dL (0.6-1.3); POTASSIUM 3.1 mmol/L (3.5-5.1)
--- NOTE | 2019-07-31 06:50 | NUR ---
RN NOTES RECEIVED PATIENT AWAKE IN BED WITH NO DISTRESS NOTED. ALERT BUT DISORIENTED AND CONFUSED. NO COMPLAINT OF PAIN OR DISCOMFORT. PATIENT WAS RESTLESS AND AGITATED. ADMINISTERED ATIVAN FO ANXIETY, WITH HELP. AT ABOUT 0300, PATIENT STARTED TO BE RESTLESS AND REMOVED THE TUBINGS AND PULLED OUT HIS CATHETER. ATIVAN ADMINISTERED WITH HELP, MD AWARE WITH ORDER FOR WRIST RESTRAINT. RELEASE EVERY TWO HOURS FOR REPOSITION, CIRCULATION AND COMFORT. REINSERTED BINGHAM CATH. GOOD BACK FLOW, PROCEDURE WELL TOLERATED. KEPT CLEAN AND DRY. WILL ENDORSE TO NEXT SHIFT FOR CONTINUITY OF CARE.
[2019-07-31] MEDS: SEVELAMER CARBONATE 0.8 GM POWD.PACK GT SCH ×3 (07:50→17:44)
[2019-07-31] MEDS: LEVOTHYROXINE SODIUM 75 MCG TABLET GT SCH (07:50)
[2019-07-31] MEDS: PROSOURCE / PROSTAT (PYXIS) 30 ML UDC GT SCH ×3 (08:42→16:31)
[2019-07-31] MEDS: DOCUSATE SODIUM LIQ 100 MG/10 ML UDC NG SCH ×2 (08:42→16:31)
[2019-07-31] MEDS: QUETIAPINE FUMARATE 25 MG TABLET GT SCH ×4 (08:42→20:21)
[2019-07-31] MEDS: NEOMY SULF/BACITRAC ZN/POLY 15 GM TUBE TP SCH (08:43)
[2019-07-31] MEDS: SILVER SULFADIAZINE CREAM 25 GM TUBE TP SCH (08:43)
[2019-07-31] MEDS: PANTOPRAZOLE 40 MG VIAL IV SCH (09:19)
[2019-07-31] MEDS: POTASSIUM CL. PREMIX PERIPHER. 50 ML IV SCH ×4 (11:11→14:11)
[2019-07-31] MEDS: NEPRO 1,000 ML BOTTLE GT PRN (18:12)
--- NOTE | 2019-07-31 19:16 | NUR ---
ICU/RN CLOSING NOTES PATIENT CONTINUES TO REMAIN IN STABLE CONDITION THROUGHOUT THE SHIFT. PROVIDED SAFETY AND COMFORT. HOB ELEVATED AT ALL TIMES. ABLE TO TOLERATE FEEDING AND MEDS WELL. NO ADVERSE REACTIONS AT THIS TIME. IV ACCESS INTACT AND PATENT. FLUSHING WELL. NO S/S OF INFECTION OR INFILTRATION. ALL NEEDS ANTICIPATED. CALL LIGHT WITHIN REACHED. BED LOCKED AND IN LOWEST POSITION. SAFETY MAINTAINED. REPOSITIONED Q2HRS. ENDORSED TO PM NURSE FOR RENAY.
[2019-08-01] VITALS (10 sets, daily range): BP systolic 114–151; BP diastolic 61–89
[2019-08-01] MEDS: IPRATROPIUM NEB FS 0.5 MG/2.5 ML AMPUL.NEB NEB SCH ×7 (00:03→23:20)
[2019-08-01] MEDS: AMPICILLIN SODIUM 2 GM in IV NS 0.9% 100 ML IV SCH ×3 (00:52→16:36)
[2019-08-01] MEDS: LORAZEPAM INJ 2 MG/ML VIAL IV PRN ×2 (02:24→14:57)
--- NOTE | 2019-08-01 06:25 | NUR ---
RN NOTES RECEIVED PATIENT AWAKE IN BED WITH NO DISTRESS NOTED. ALERT BUT DISORIENTED AND CONFUSED. NO COMPLAINT OF PAIN OR DISCOMFORT. PATIENT WAS RESTLESS AND AGITATED. ADMINISTERED ATIVAN X 2 FOR ANXIETY, WITH HELP. PATIENT HAS EPISODES OF RESTLESSNESS AND AGITATION. WITH ORDERS TO TRANSFER TO [facility]. TRANSFERRED AT ABOUT 0530 IN STABLE CONDITION, NO FACIAL GRIMACE, VITAL SIGNS WNL, ALERT WITH CONFUSION, STILL ON WRIST RESTRAINT FOR PULLING OUT TUBINGS. BED BATH GIVEN. KEPT CLEAN AND DRY. ENDORSED TO [facility] NURSE CASTRO FOR CONTINUITY OF CARE.
[2019-08-01 06:30] LABS: CALCIUM, SERUM 8.1 mg/dL (8.5-10.1); CREATININE 1.1 mg/dL (0.6-1.3); POTASSIUM 3.6 mmol/L (3.5-5.1)
--- NOTE | 2019-08-01 06:49 | NUR ---
RN CLOSING NOTE RECEIVED PATIENT AWAKE IN BED at 0530 FROM ICU WITH NO DISTRESS NOTED. ALERT BUT DISORIENTED AND CONFUSED. NO COMPLAINT OF PAIN OR DISCOMFORT. VITAL SIGNS WNL, ALERT WITH CONFUSION, STILL ON WRIST RESTRAINT FOR PULLING OUT TUBINGS. PT CLEANED AND CHANGED, KEPT CLEAN AND DRY. SAFETY MEASURES IN PLACE BED IN LOWEST POSITION WILL ENDORSE TO AM NURSE TO TO RESTART FEEDING AND RENAY
[2019-08-01] MEDS: PANTOPRAZOLE 40 MG VIAL IV SCH (09:17)
[2019-08-01] MEDS: DOCUSATE SODIUM LIQ 100 MG/10 ML UDC NG SCH ×2 (09:17→16:36)
[2019-08-01] MEDS: LEVOTHYROXINE SODIUM 75 MCG TABLET GT SCH (09:17)
[2019-08-01] MEDS: QUETIAPINE FUMARATE 25 MG TABLET GT SCH ×4 (09:17→20:40)
[2019-08-01] MEDS: SEVELAMER CARBONATE 0.8 GM POWD.PACK GT SCH ×3 (09:25→17:19)
[2019-08-01] MEDS: PROSOURCE / PROSTAT (PYXIS) 30 ML UDC GT SCH ×3 (09:25→16:36)
[2019-08-01] MEDS: NEOMY SULF/BACITRAC ZN/POLY 15 GM TUBE TP SCH (09:26)
[2019-08-01] MEDS: SILVER SULFADIAZINE CREAM 25 GM TUBE TP SCH (09:26)
--- NOTE | 2019-08-01 18:28 | NUR ---
RT END OF THE SHIFT REPORT, PT. 54 Y OLD MALE REC. IN AM TRACH'D SHILEY XLT # 8 ON VENT WITH NOTED SETTINGS, ALARMS ARE SET AND FUNCTIONAL, HHN INLINE TX'S GIVEN Q4 NO ADVERSE REACTION NOTED. B/S BILATERALLY RHONCHI SUX'S FOR LARGE AMT WHITE THIN SECRETIONS, HME CHANGED, POLYETHYLENE COMBINER DONE NO DISTRESS NOTED T/O DAY NO CHANGES, AMBU BAG AT THE BEDSIDE. VENT PLUGGED INTO RED OUTLET. REPORT WILL PASS TO PM SHIFT. Addendum: 08/01/19 at 1829 by YULIET ROSE RT Amended: Links added.
[2019-08-01] MEDS: NEPRO 1,000 ML BOTTLE GT PRN (18:33)
--- NOTE | 2019-08-01 19:05 | NUR ---
RN OPENING NOTE RECEIVED PT IN BED. ON VENT. CONFUSED. BREATHING EVEN AND NON LABORED. NO SOB NOTED. ON GTF JEVITY 1.2 RUNNING AT 45 MLS/HR. IN NO APPARENT DISTRESS NOTED AT THIS TIME. CALL LIGHT WITHIN REACH. WILL CONTINUE TO MONITOR.
[2019-08-02] VITALS (8 sets, daily range): BP systolic 118–163; BP diastolic 86–111
[2019-08-02] MEDS: LORAZEPAM INJ 2 MG/ML VIAL IV PRN ×2 (00:43→14:57)
[2019-08-02] MEDS: AMPICILLIN SODIUM 2 GM in IV NS 0.9% 100 ML IV SCH ×4 (01:14→16:31)
[2019-08-02] MEDS: IPRATROPIUM NEB FS 0.5 MG/2.5 ML AMPUL.NEB NEB SCH ×6 (03:30→23:29)
--- NOTE | 2019-08-02 03:30 | NUR ---
RN NOTE NOTED PATIENT PULLED OUT PICC ON DORY. DR. MOSS MADE AWARE. RECEIVED ORDERS TO RENEW SOFT WRIST RESTRAINTS. NEW IV INSERTED ON LEFT HAND. WILL CONTINUE TO MONITOR.
--- NOTE | 2019-08-02 07:13 | NUR ---
RN CLOSING NOTE PATIENT IS IN BED RESTING WITH HOB ELEVATED. BREATHING EVEN AND NON LABORED. ON VENT. GTF RUNNING JEVITY 1.2 AT 45 ML/HR. A&O X2. DUE MEDS GIVEN AND TOLERATED WELL. CALL LIGHT WITHIN REACH. WILL ENDORSE TO AM SHIFT RN FOR CONTINUATION OF CARE.
--- NOTE | 2019-08-02 07:40 | NUR ---
RN OPENING NOTE: RECEIVED PATIENT IN BED THIS MORNING. PATIENT IS CONFUSED, HAS TRACH. TOLERATING SETTING WELL. RHONCHI, DIMINISHED LUNG SOUNDS BILATERALLY UPON AUSCULTATION. PATIENT IS ON JEVITY 1.2 RUNNING AT 45CC/HR, TOLERATING SETTINGS WELL. EDEMA NOTED BUE/BLE/SCROTAL. PEDAL PULSES PALPABLE, BUT FAINT. PATIENT HAS SOFT WRIST RESTRAINTS D/T PULLING OUT PICC LINE PREVIOUS SHIFT AND CONTINUING TO DISRUPT CARE/ PULL ON MEDICAL EQUIPMENT. PATIENT HAS A #20 ON HER LEFT BOH, FLUSHING WELL, SITE C/D/I, NO SIGNS OF COMPLICATION NOTED AND A AND A PICC LINE TRIPLE LUMEN ON RIGHT THIGH FOR DIALYSIS, SITE C/D/I. SAFETY MEASURES IMPLEMENTED, BED IN LOWEST POSITION, LOCKED, SIDE RAILS UP X2. CALL LIGHT WITHIN REACH. WILL CONTINUE TO MONITOR PATIENT FOR ANY CHANGES. Addendum: 08/02/19 at 1948 by JUANIS MON RN ON TELE MONITOR, SR
[2019-08-02 09:00] LABS: CALCIUM, SERUM 8.1 mg/dL (8.5-10.1); CREATININE 1.2 mg/dL (0.6-1.3); MAGNESIUM 1.6 mg/dL (1.8-2.4); POTASSIUM 3.2 mmol/L (3.5-5.1)
[2019-08-02] MEDS: LEVOTHYROXINE SODIUM 75 MCG TABLET GT SCH (09:01)
[2019-08-02] MEDS: QUETIAPINE FUMARATE 25 MG TABLET GT SCH ×4 (09:01→20:16)
[2019-08-02] MEDS: SEVELAMER CARBONATE 0.8 GM POWD.PACK GT SCH ×3 (09:01→18:20)
[2019-08-02] MEDS: PANTOPRAZOLE 40 MG VIAL IV SCH (09:01)
[2019-08-02] MEDS: DOCUSATE SODIUM LIQ 100 MG/10 ML UDC NG SCH ×2 (09:02→17:23)
[2019-08-02] MEDS: PROSOURCE / PROSTAT (PYXIS) 30 ML UDC GT SCH ×3 (09:06→17:24)
[2019-08-02] MEDS: SILVER SULFADIAZINE CREAM 25 GM TUBE TP SCH (09:25)
[2019-08-02] MEDS: NEOMY SULF/BACITRAC ZN/POLY 15 GM TUBE TP SCH (09:25)
[2019-08-02 10:06] LABS: BASOPHILS # (AUTO) 0.2 /CMM (0.0-0.2); BASOPHILS % (AUTO) 1.2 % (0.0-2.0); EOSINOPHILS % (AUTO) 2.8 % (0.0-6.0); HEMATOCRIT 24 % (39-51); LYMPHOCYTES # (AUTO) 0.8 /CMM (0.8-4.8); LYMPHOCYTES % (AUTO) 6.2 % (20.0-44.0); MEAN CORPUSCULAR HGB CONC 33 g/dl (31.0-36.0); MEAN CORPUSCULAR VOLUME 90 fL (80-96); MONOCYTES # (AUTO) 0.8 /CMM (0.1-1.30); NEUTROPHILS # (AUTO) 11.2 /CMM (1.8-8.9); NEUTROPHILS % (AUTO) 83.8 % (43.0-81.0); PLATELET COUNT (AUTO) 130 /CMM (150-450); RED BLOOD CELL COUNT(AUTO) 2.71 MIL/uL (4.5-6.0); WHITE BLOOD COUNT (AUTO) 13.4 K/uL (4.3-11.0)
[2019-08-02] MEDS: Magnesium 1GM/D5W 100ML PREMIX 100 ML IV SCH ×2 (13:08→14:58)
[2019-08-02] MEDS: POTASSIUM CL. PREMIX PERIPHER. 50 ML IV SCH ×5 (13:08→17:48)
--- NOTE | 2019-08-02 14:59 | NUR ---
SHINGLE TRIMMER received a voicemail message from [facility] informing SHINGLE TRIMMER that pt would like a Rabbi to visit him at the hospital. SHINGLE TRIMMER met with the pt and family/friend bedside. SHINGLE TRIMMER introduced self and purpose of the visit. SHINGLE TRIMMER informed pt, in the past it has been difficult to get a Rabbi come to the hospital if pt is not a member of a jew. SHINGLE TRIMMER informed pt that she will try anyway. SHINGLE TRIMMER contacted [facility] [employer] [facility] and left a voicemail message for a call back. SHINGLE TRIMMER contacted pt's RN Chela and updated her with aforementioned information.
[2019-08-02] MEDS: NEPRO 1,000 ML BOTTLE GT PRN (17:41)
--- NOTE | 2019-08-02 19:15 | NUR ---
RN OPENING NOTE RECEIVED PATIENT IN BED WITH HOB ELEVATED. ON VENT. CONFUSED. A&O X1. ABLE TO NOD HEAD FOR YES OR NO QUESTIONS. IN NO APPARENT DISTRESS NOTED AT THIS TIME. ON GTF RUNNING AT 45 MLS/HR. CALL LIGHT IS WITHIN REACH. BED LOWERED TO LOW POSITION FOR SAFETY. WILL CONTINUE TO MONITOR.
--- NOTE | 2019-08-02 19:48 | NUR ---
RN CLOSING NOTE: PATIENT IS RESTING IN BED. NO RESPIRATORY DISTRESS NOTED. PATIENT ON VENT AND GT TOLERATING SETTINGS WELL. NO COMPLICATIONS FROM IV SITE, C/D/I. SAFETY MEASURES IMPLEMENTED, BED IN LOWEST POSITION, LOCKED, SIDE RAILS UP X2. CALL LIGHT WITHIN REACH. WILL ENDORSE TO FOLLOWING SHIFT FOR CONTINUITY OF CARE.
[2019-08-03] VITALS (7 sets, daily range): BP systolic 126–159; BP diastolic 76–96
[2019-08-03] MEDS: AMPICILLIN SODIUM 2 GM in IV NS 0.9% 100 ML IV SCH ×3 (00:09→16:34)
[2019-08-03] MEDS: LORAZEPAM INJ 2 MG/ML VIAL IV PRN ×2 (01:38→20:12)
[2019-08-03] MEDS: IPRATROPIUM NEB FS 0.5 MG/2.5 ML AMPUL.NEB NEB SCH ×6 (03:39→23:37)
--- NOTE | 2019-08-03 07:03 | NUR ---
RN CLOSING NOTE PATIENT IS IN BED RESTING WITH HOB. A&O X1. ON VENT. ON GTF FEEDING. GT KEPT PATENT. BREATHING EVEN AND NON LABORED. BILATERAL SOFT WRIST RESTRAINTS RENEWED AT 0334, PER DR. MOSS. NO SIGNIFICANT CHANGES NOTED THROUGHOUT THE NIGHT. PATIENT REMAINED STABLE. WILL ENDORSE TO AM SHIFT RN FOR CONTINUATION OF CARE.
[2019-08-03 07:21] LABS: CALCIUM, SERUM 8.2 mg/dL (8.5-10.1); POTASSIUM 3.2 mmol/L (3.5-5.1)
[2019-08-03 07:34] LABS: BASOPHILS % (AUTO) 0.4 % (0.0-2.0); EOSINOPHILS % (AUTO) 3.3 % (0.0-6.0); HEMATOCRIT 21 % (39-51); LYMPHOCYTES # (AUTO) 0.7 /CMM (0.8-4.8); MEAN CORPUSCULAR HGB CONC 33 g/dl (31.0-36.0); MEAN CORPUSCULAR VOLUME 90 fL (80-96); MONOCYTES # (AUTO) 0.8 /CMM (0.1-1.30); MONOCYTES % (AUTO) 7.9 % (2.0-12.0); NEUTROPHILS # (AUTO) 8.6 /CMM (1.8-8.9); NEUTROPHILS % (AUTO) 81.4 % (43.0-81.0); PLATELET COUNT (AUTO) 260 /CMM (150-450); RED BLOOD CELL COUNT(AUTO) 2.35 MIL/uL (4.5-6.0); WHITE BLOOD COUNT (AUTO) 10.6 K/uL (4.3-11.0)
--- NOTE | 2019-08-03 07:40 | NUR ---
HYDROELECTRIC PLANT ELECTRICIAN NOTES RECEIVED PATIENT IN A BED ALERT AWAKE VERY RESTLESS TRIED TO REMOVED ALL LINES AND TRACH, ON SOFT RESTRAINED ORDERED. PATIENT CONTINUES ON GT FEEDING NEPHRO AT 45. ON F/C DRAINING WELL. WITH TRACH TO VENT SETTING RT AT BED SIDE, TRIED TO CHANGE TO SIMV MODE. RR-50-60 CAN TOLERATE TO THIS TIME BACK TO ORIGINAL SETTING. PATIENT ON TELE MONITOR HR -96 SR. LEFT HAND HEP LOCK SWOLLEN BUT IV INTACT AND FLUSHED WELL. SAFETY PRECAUTION IN PLACE. BED IN LOWEST AND LOCKED POSITION. CALL LIGHT WITHIN REACH. DISCUSES PLAN OF CARE WITH THE PATIENT. WILL CONT TO MONITOR.
[2019-08-03] MEDS: PROSOURCE / PROSTAT (PYXIS) 30 ML UDC GT SCH ×3 (09:00→16:44)
--- NOTE | 2019-08-03 09:00 | NUR ---
telecommunications field engineer note on simv mode vent setting by rt ,abg wii be done soon
[2019-08-03] MEDS: SILVER SULFADIAZINE CREAM 25 GM TUBE TP SCH (09:16)
[2019-08-03] MEDS: NEOMY SULF/BACITRAC ZN/POLY 15 GM TUBE TP SCH (09:16)
[2019-08-03] MEDS: QUETIAPINE FUMARATE 25 MG TABLET GT SCH ×4 (09:18→20:11)
[2019-08-03] MEDS: PANTOPRAZOLE 40 MG VIAL IV SCH (09:18)
[2019-08-03] MEDS: DOCUSATE SODIUM LIQ 100 MG/10 ML UDC NG SCH ×2 (09:18→16:43)
--- NOTE | 2019-08-03 09:20 | NUR ---
PT. PLACED ON ( SIMV, RR 4, VT 700, PS12, FIO2 40%, PEEP +5 ) MODE PER DR. BECKETT ORDER AND CONTINUE TO MONITOR. Addendum: 08/03/19 at 1906 by YULIET ROSE RT Amended: Links added.
[2019-08-03] MEDS: SEVELAMER CARBONATE 0.8 GM POWD.PACK GT SCH ×3 (09:22→17:37)
[2019-08-03] MEDS: LEVOTHYROXINE SODIUM 75 MCG TABLET GT SCH (09:23)
[2019-08-03 09:42] LABS: ABG BASE EXCESS 0.7 mmol/L; ABG OXYGEN SATURATION 97.8 % (92.0-98.5); ABG PCO2 34.5 mmHg (35.0-45.0); ABG PH 7.467 (7.350-7.450); ABG PO2 126.4 mmHg (75.0-100.0); AaDO2 119.1 mmHg; COHb 0.5 % (0.5-1.5); MetHb 0.8 % (0.0-1.5); O2Hb 96.5 % (94.0-97.0); PEEP,BG 5 cm H2O; SITE, ABG Left Radial; VENT MODE, BG SIMV PS12; VT, ABG 700 mL
--- NOTE | 2019-08-03 10:08 | NUR ---
PATIENT SCHEDULING COORDINATOR NOTE SEEN BY DR BECKETT OK TO TO CONT TO SIMV MODE AWARE OF ABG RESULT , ALL NEEDS ATTENDED, KEEP CLEAN DRY
[2019-08-03] MEDS: POTASSIUM CHLORIDE 20 MEQ TAB.PRT.SR PO SCH ×2 (11:09→12:37)
--- NOTE | 2019-08-03 13:14 | NUR ---
telegraph service clerk note per Pat rn waste collector ok dont do debridement patient will d\c to snf
[2019-08-03] MEDS: NEPRO 1,000 ML BOTTLE GT PRN (16:41)
--- NOTE | 2019-08-03 17:20 | NUR ---
RT NOTE: AT APPROX- 1700-PATIENT WAS UPSET AND AGITATED WITH RR=40-45 BPM. PATIENT STATED THAT HE WAS UPSET THAT HE IS RESTRAINED. PATIENT WAS TOLD THAT RESTRAINTS ARE FOR HIS SAFETY DUE TO HIM PULLING ON HIS TRACH EARLIER TODAY PER RN(MICKIE). PATIENT ASKED FOR MEDICATION AND RN IS AWARE. PATIENT ALSO SAID HE WAS SOB BUT AFTER TRACHEAL SUCTION, PATIENT STATES THAT HE IS FEELING BETTER. PATIENT'S RR=36-38BPM NOW. RN (MICKIE) NOTIFIED. WILL CONTINUE TO MONITOR.
--- NOTE | 2019-08-03 17:21 | NUR ---
MAP MOUNTER NOTE PER PRAVEEN SAUCEDO PARTS ORDER AND STOCK CLERK OK TO GIVE BLOOD TRANSFUSION. HG 7.0 HOLD DISCHARGE
--- NOTE | 2019-08-03 17:37 | NUR ---
MAKE UP OPERATOR HELPER NOTE OK TO INSERT MID LINE BOTH ARMS VERY EDEMATOUS PRAVEEN RN AT BEDSIDE AWARE PATIENT CONDITION
--- NOTE | 2019-08-03 18:28 | NUR ---
RN NOTES SPOKE TO DR. GALVEZ DIGITAL MARKETING COORDINATOR ABOUT HEMODIALYSIS CATHETER STATED DR. TORRES WILL REMOVE IT TOMORROW BEFORE DISCHARGE. WILL ENDORSE TO NIGHT NURSE TO ENDORSE TO DAY SHIFT NURSE TOMORROW.
--- NOTE | 2019-08-03 18:45 | NUR ---
RN NOTES PATIENT RESTING COMFORTABLY IN BED. CONTINUES ON GT FEEDING. BREATHING NORMAL NO SOB NOTED. SAFETY MEASURES IN PLACE. BED IN LOW AND LOCKED POSITION. CALL LIGHT WITHIN REACH. WILL ENDORSE TO NIGHT NURSE.
--- NOTE | 2019-08-03 18:54 | NUR ---
SHERYL NOTES BLOOD NOT READY YET WOOD NURSE Addendum: 08/03/19 at 1859 by LEANN OCONNOR RN MIDLINE NURSE WILL COME SOON TO INSERT THE LINE. WILL ENDORSE TO NIGHT NURSE.
--- NOTE | 2019-08-03 19:09 | NUR ---
RN NOTES PATIENT UNABLE TO REMOVE RESTRAINS, BUT STILL TRYING TO PULL ALL THE LINES. WILL MONITOR.
--- NOTE | 2019-08-03 19:15 | NUR ---
RN OPENING NOTE RECEIVED PATIENT IN BED WITH HOB ELEVATED. CONFUSED. ON VENT. BREATHING EVEN AND NON LABORED. NO SOB NOTED. ON GTF NEPHRO @ 45 ML/HR. ABLE TO NOD HEAD TO YES OR NO QUESTIONS. ON BILATERAL SOFT WRIST RESTRAINTS. ON BINGHAM. URINE IS CLEAR AND YELLOW IN COLOR. WILL CONTINUE TO MONITOR.
[2019-08-03] MEDS: ACETAMINOPHEN 650 MG/20.3 ML UDC NG PRN (20:11)
[2019-08-03] MEDS: diphenhydrAMINE HCL 50 MG/ML VIAL IV PRN (22:33)
--- NOTE | 2019-08-03 23:25 | NUR ---
RN NOTE NOTED PATIENT WITH SEVERE RESTLESSNESS AND ANXIETY. PATIENT IS NOTED TO BE KICKING SIDE OF BED AND EXPERIENCE INCREASE HEART RATE AND RESPIRATIONS. PRN ATIVAN MED ALREADY GIVEN AT 2011 IN THIS SHIFT. CALLED AND PAGED CHIEF DIVERSITY OFFICER DR. NADIRA WILSON. AWAITING FOR FURTHER ORDERS.
[2019-08-03] MEDS ORDERED: LORAZEPAM INJ 2 MG/ML VIAL IV ONE (23:30)
--- NOTE | 2019-08-03 23:35 | NUR ---
RN NOTE DR. WADDELL CALLED BACK AND RECEIVED NEW ORDERS FOR ATIVAN 1 MG IV X 1 AT THIS TIME ONLY. ORDERS NOTED AND CARRIED OUT. WILL CONTINUE TO MONITOR PATIENT.
--- NOTE | 2019-08-03 23:40 | NUR ---
RN NOTE NOTED PATIENT WITH INCREASED RESPIRATIONS (40-50 BREATHS PER MINUTE) AND LABORED BREATHING. CALLED RT JUAN MANUEL TO CHANGE VENT SETTINGS BACK TO AC. PATIENT ABLE TO TOLERATE AC VENT SETTINGS AT THIS TIME. RESPIRATIONS DECREASED BACK TO 20-30 BREATHS PER MINUTE. WILL CONTINUE TO MONITOR.
[2019-08-04] VITALS (15 sets, daily range): BP systolic 123–147; BP diastolic 68–93
[2019-08-04] MEDS: AMPICILLIN SODIUM 2 GM in IV NS 0.9% 100 ML IV SCH ×2 (00:42→09:07)
[2019-08-04] MEDS: LORAZEPAM INJ 2 MG/ML VIAL IV PRN ×2 (02:34→11:01)
[2019-08-04] MEDS: IPRATROPIUM NEB FS 0.5 MG/2.5 ML AMPUL.NEB NEB SCH ×4 (03:19→14:44)
--- NOTE | 2019-08-04 03:50 | NUR ---
RT Pt received trached on mech vent with noted SIMV setting per md orders. Pt had to be placed back on AC mode as noted due to high RR of above 50 and high HR of above 130. RN was made aware. Trach patent and secure via trach ties. Alarms set and audible. vent to red outlet Addendum: 08/04/19 at 0534 by KRYSTA NICHOLE RT Amended: Links added. Addendum: 08/04/19 at 0538 by KRYSTA NICHOLE RT 08/03/19 @ 2345 Vent Changes. Pt received trached on mech vent with noted SIMV setting per md orders. Pt had to be placed back on AC mode as noted due to IWB, high RR of above 50 and high HR of above 130. RN was made aware. Trach patent and secure via trach ties. Alarms set and audible. vent to red outlet
--- NOTE | 2019-08-04 06:58 | NUR ---
RN CLOSING NOTE PATIENT IS IN BED RESTING WITH HOB ELEVATED. BREATHING EVEN AND NON LABORED. ON VENT AC SETTING AND TOLERATING WELL AT THIS TIME. A&O X1. PATIENT IS S/P 1 UNIT PRBC TRANSFUSION WITH NO ADVERSE REACTION NOTED. DUE MEDS GIVEN AND TOLERATED WELL. ON BILATERAL SOFT WRIST RESTRAINTS. ALL NEEDS ATTENDED AND MET. PATIENT IS KEPT CLEAN, DRY, AND COMFORTABLE. WILL ENDORSE TO AM SHIFT FOR CONTINUATION OF CARE.
--- NOTE | 2019-08-04 07:00 | NUR ---
RN OPENING NOTES PT IS IN BED ON VENT ASLEEP, HOB ELEVATED G-TUBE RUNNING AT 45 MLS/HR.PT IS ON TELE MONITOR IS ST HR101. PT HAS BILATERAL SOFT WRIST RESTRAINTS ON. NO OBVIOUS SIGNS OF SOB OR PAIN NOTED AT THIS TIME. BINGHAM CATHETER DRAINING TO GRAVITY. BED IS LOCKED AND IN LOWEST POSITION. WILL CONTINUE TO MONITOR.
[2019-08-04 08:09] LABS: BASOPHILS % (AUTO) 0.3 % (0.0-2.0); HEMATOCRIT 23 % (39-51); HEMOGLOBIN 7.8 g/dL (13.5-17.5); LYMPHOCYTES # (AUTO) 0.7 /CMM (0.8-4.8); LYMPHOCYTES % (AUTO) 6.4 % (20.0-44.0); MEAN CORPUSCULAR HGB CONC 34 g/dl (31.0-36.0); MEAN CORPUSCULAR VOLUME 88 fL (80-96); MONOCYTES % (AUTO) 9.2 % (2.0-12.0); NEUTROPHILS # (AUTO) 8.8 /CMM (1.8-8.9); NEUTROPHILS % (AUTO) 82.1 % (43.0-81.0); PLATELET COUNT (AUTO) 275 /CMM (150-450); RED BLOOD CELL COUNT(AUTO) 2.63 MIL/uL (4.5-6.0); WHITE BLOOD COUNT (AUTO) 10.7 K/uL (4.3-11.0)
[2019-08-04 08:19] LABS: IRON, SERUM 17 ug/dl (50-175); TOTAL IRON BINDING CAPACITY 227 ug/dl (250-450)
[2019-08-04 08:24] LABS: CALCIUM, SERUM 8.2 mg/dL (8.5-10.1); MAGNESIUM 1.9 mg/dL (1.8-2.4); PHOSPHORUS 2.8 mg/dL (2.5-4.9); POTASSIUM 3.3 mmol/L (3.5-5.1)
[2019-08-04] MEDS ORDERED: AMPI1VIA12 IV (08:29)
[2019-08-04] MEDS ORDERED: Silver Sulfadiazine Cream TP (08:29)
[2019-08-04] MEDS ORDERED: LORA2VIA11 IV (08:29)
[2019-08-04] MEDS ORDERED: DOCU50LI NG (08:29)
[2019-08-04] MEDS ORDERED: NEOM15OI3 TP (08:29)
[2019-08-04] MEDS ORDERED: Metoprolol Tartrate Inj IVP (08:29)
[2019-08-04] MEDS ORDERED: BISA10SU11 RC (08:29)
[2019-08-04] MEDS ORDERED: CLON0.3P TD (08:29)
[2019-08-04] MEDS ORDERED: SEVE0.8P GT (08:29)
[2019-08-04] MEDS ORDERED: IPRA0.2S9 NEB (08:29)
[2019-08-04] MEDS ORDERED: Prosource GT (08:29)
[2019-08-04] MEDS ORDERED: PANT40VI PO (08:29)
[2019-08-04] MEDS ORDERED: QUET25TA GT (08:29)
[2019-08-04] MEDS ORDERED: Nepro GT (08:29)
[2019-08-04 08:32] LABS: FERRITIN 642 ng/mL (8-388)
[2019-08-04] MEDS: DOCUSATE SODIUM LIQ 100 MG/10 ML UDC NG SCH (09:06)
[2019-08-04] MEDS: PANTOPRAZOLE 40 MG VIAL IV SCH (09:06)
[2019-08-04] MEDS: PROSOURCE / PROSTAT (PYXIS) 30 ML UDC GT SCH ×2 (09:07→13:20)
[2019-08-04] MEDS: SEVELAMER CARBONATE 0.8 GM POWD.PACK GT SCH (09:07)
[2019-08-04] MEDS: LEVOTHYROXINE SODIUM 75 MCG TABLET GT SCH (09:07)
[2019-08-04] MEDS: QUETIAPINE FUMARATE 25 MG TABLET GT SCH ×2 (09:07→13:20)
[2019-08-04] MEDS: SILVER SULFADIAZINE CREAM 25 GM TUBE TP SCH (09:09)
[2019-08-04] MEDS: NEOMY SULF/BACITRAC ZN/POLY 15 GM TUBE TP SCH (09:09)
[2019-08-04] MEDS ORDERED: POTASSIUM CHLORIDE 20 MEQ TAB.PRT.SR PO SCH (11:30)
[2019-08-04] MEDS: ACETAMINOPHEN 650 MG/20.3 ML UDC NG PRN (11:50)
--- NOTE | 2019-08-04 13:18 | NUR ---
PAGED DR. TORRES ABOUT REMOVAL OF DIALYSIS CATHETER, MADE HIM AWARE OF DISCHARGE AND TIME OF MOISTURE METER OPERATOR AT 1600. STATED HE WILL REMOVE CATHETER BEFORE THAN.
[2019-08-04] MEDS ORDERED: SOD FERRIC GLUC 125 MG in IV NS 0.9% 100 ML IV SCH (14:00)
--- NOTE | 2019-08-04 14:26 | NUR ---
PT MORE ALERT. IS ABLE TO MOUTH WORDS AND OBEY COMMANDS. PT REQUESTING PEN AND PAPER TO WRITE ON.
--- NOTE | 2019-08-04 16:31 | NUR ---
DIALYSIS CATHETER REMOVED BY DIALYSIS NURSE GARY. REPORT GIVEN TO ALINA SAUCEDO ITINERANT TEACHER ASSISTANT FOR [facility].
--- NOTE | 2019-08-04 16:58 | NUR ---
RN D/C NOTES PT DISCHARGED TO [facility]. REPORT GIVEN TO RN OVERHEAD CRANE INSPECTOR ALINA. REPORT GIVEN TO EMT'S AND EXITCARE EDUCATION GIVEN TO EMT'S. PT REFUSED DISCHARGED PHOTOS WRITING ON PAPER THAT THEY TOOK PHOTOS YESTERDAY. PT REFUSED TO SIGN EXITCARE PACKET AND DECLINED TO ANSWER WHY. PT REFUSED TO VERBALIZE EDUCATION, PACKET GIVEN TO EMT'S.
== END 2019-08-04 17:12 | DRG 4 ==
LOC: ER 22:45 → ICU 06-30 07:23 → TELE1 08-01 05:10
PROVIDERS: ADMIT Nurse Practitioner Acute Care; ATTEND Nurse Practitioner Acute Care
PROC: 5A1955Z Respiratory Ventilation, Greater than 96 Consecutive Hours (ICD-10-PCS; principal; 2019-06-30)
PROC: 0BH17EZ Insertion of Endotracheal Airway into Trachea, Via Natural or Artificial Opening (ICD-10-PCS; 2019-06-30)
PROC: 02HV33Z Insertion of Infusion Device into Superior Vena Cava, Percutaneous Approach (ICD-10-PCS; 2019-06-30)
PROC: B548ZZA Ultrasonography of Superior Vena Cava, Guidance (ICD-10-PCS; 2019-06-30)
PROC: 00JU3ZZ Inspection of Spinal Canal, Percutaneous Approach (ICD-10-PCS; 2019-07-01)
PROC: 05HC33Z Insertion of Infusion Device into Left Basilic Vein, Percutaneous Approach (ICD-10-PCS; 2019-07-03)
PROC: 0DH63UZ Insertion of Feeding Device into Stomach, Percutaneous Approach (ICD-10-PCS; 2019-07-03)
PROC: 0B110F4 Bypass Trachea to Cutaneous with Tracheostomy Device, Open Approach (ICD-10-PCS; 2019-07-15)
PROC: 30233N1 Transfusion of Nonautologous Red Blood Cells into Peripheral Vein, Percutaneous Approach (ICD-10-PCS; 2019-07-29)
PROC: 5A1D70Z Performance of Urinary Filtration, Intermittent, Less than 6 Hours Per Day (ICD-10-PCS; 2019-07-29)
DX: T50.991A Poisoning by other drugs, medicaments and biological substances, accidental (unintentional), initial encounter (principal); A41.9 Sepsis, unspecified organism; J96.02 Acute respiratory failure with hypercapnia; I50.31 Acute diastolic (congestive) heart failure; R65.21 Severe sepsis with septic shock; G92 Toxic encephalopathy; N17.0 Acute kidney failure with tubular necrosis; K72.00 Acute and subacute hepatic failure without coma; J96.01 Acute respiratory failure with hypoxia; J69.0 Pneumonitis due to inhalation of food and vomit; G21.0 Malignant neuroleptic syndrome; E43 Unspecified severe protein-calorie malnutrition; M62.82 Rhabdomyolysis; Z99.11 Dependence on respirator [ventilator] status; E87.2 Acidosis; E87.0 Hyperosmolality and hypernatremia; I11.0 Hypertensive heart disease with heart failure; Z79.899 Other long term (current) drug therapy; Y92.129 Unspecified place in nursing home as the place of occurrence of the external cause; I95.3 Hypotension of hemodialysis; R13.10 Dysphagia, unspecified; E87.6 Hypokalemia; E87.5 Hyperkalemia; F41.9 Anxiety disorder, unspecified; G47.00 Insomnia, unspecified; I95.2 Hypotension due to drugs; Z99.2 Dependence on renal dialysis; E83.42 Hypomagnesemia; E83.41 Hypermagnesemia; D64.9 Anemia, unspecified; D72.819 Decreased white blood cell count, unspecified; E03.9 Hypothyroidism, unspecified; E78.1 Pure hyperglyceridemia; E83.39 Other disorders of phosphorus metabolism; Z68.38 Body mass index [BMI] 38.0-38.9, adult
CPT/HCPCS: 31720; 36415; 36569; 36600; 43246; 70450-TC; 71045-TC; 74018; 76770-TC; 80048-TC; 80053-TC; 80061-TC; 80076-TC; 80202-TC; 80305; 81000-TC; 82550-TC; 82570-TC; 82728-TC; 82803-TC; 83540-TC; 83605-TC; 83735-TC; 83880; 83970; 84100-TC; 84155; 84155-TC; 84165; 84300-TC; 84439-TC; 84443-TC; 84478-TC; 84484-TC; 85025-TC; 85610-TC; 85730-TC; 86694; 86706; 86788; 86789; 86850-TC; 86921-TC; 87040-TC; 87070-TC; 87081-TC; 87086-TC; 87186-TC; 87340; 87806; 87899; 89051-TC; 90935-TC; 93307-TC; 94002-TC; 94003-TC; 94760-TC; 94762-TC; 95819-TC; 99082-TC; A4216; A4217; A4349; A4623; A6253; A6403; A7526; C1750; C1751; C9113; G0378; J0290; J0330; J0360; J1200; J1630; J1644; J1650; J2060; J2185; J2250; J2370; J2405; J2543; J2704; J2916; J3010; J3370; J3475; J3480; J3490; J7030; J7040; J7050; J7060; P9016-BL

== ENCOUNTER 2019-09-23 20:19 | Emergency (ER) | payer OTHER ==
[~2019-09-23] VITALS: Ht 177.8 cm; Wt 80.7 kg
[~2019-09-23 20:19] MED LIST: AMPI1VIA12 IV; BISA10SU11 RC; CLON0.3P TD; DOCU50LI NG; IPRA0.2S9 NEB; LEVO150T8 PO; LORA2VIA11 IV; Metoprolol Tartrate Inj IVP; NEOM15OI3 TP; Nepro GT; PANT40VI PO; Prosource GT; QUET25TA GT; Silver Sulfadiazine Cream TP
--- NOTE | 2019-09-23 21:40 | NUR ---
BIBS. TO ER BED 3. AAOX4. NOT IN RESP DISTRESS, BREATHING EVEN AND UNLABORED. AMBULATORY. CAME IN FOR DRESING CHANGE OF HIS TRACH SITE. PER PT, HE AMA FROM [facility] TODAY. PT ALSO CAME IN TO HAVE GT REMOVED. UPON PRESENTATION, DRESSING IS INTACT AND DATED 09/22/19, CLEAN AND FREE FROM SECRETION. GT IS INTACT, SITE CLEAN, DRY AND NO REDNESS NOTED. AWAITING MD FOR EVAL.
--- NOTE | 2019-09-23 21:42 | NUR ---
PER PT, TRACHEOSTOMY WAS DISCONTINUED ON Friday09/20/19
[2019-09-23 22:21] VITALS: BP 147/92
--- NOTE | 2019-09-23 22:21 | NUR ---
TRACH SITE DRESSING CHANGED. NO S/S OF INFECTION NOTED ON TRACH SITE
--- NOTE | 2019-09-23 22:39 | NUR ---
Patient discharged to home in stable condition. Written and verbal after care instructions given. Patient verbalizes understanding of instruction. Pt ambulatory with a steady gait
== END 2019-09-23 22:41 | disposition home or self-care (01) ==
LOC: ER 20:19
DX: Z48.01 Encounter for change or removal of surgical wound dressing (principal); I10 Essential (primary) hypertension; F32.9 Major depressive disorder, single episode, unspecified; F41.9 Anxiety disorder, unspecified; E78.00 Pure hypercholesterolemia, unspecified; Z79.899 Other long term (current) drug therapy

== ENCOUNTER 2019-10-11 19:16 | Emergency (ER) | payer MEDICAID, OTHER ==
[~2019-10-11] VITALS: Ht 170.2 cm; Wt 74.4 kg
[2019-10-11 19:27] VITALS: BP 134/72
== END 2019-10-11 20:13 | disposition left against medical advice (07) ==
LOC: ER 19:18
DX: Z53.21 Procedure and treatment not carried out due to patient leaving prior to being seen by health care provider (principal); K94.23 Gastrostomy malfunction; I10 Essential (primary) hypertension; F41.9 Anxiety disorder, unspecified; F32.9 Major depressive disorder, single episode, unspecified; E78.00 Pure hypercholesterolemia, unspecified

== ENCOUNTER 2020-05-17 22:07 | Emergency (ER) | payer OTHER ==
[~2020-05-17] VITALS: Ht 177.8 cm; Wt 89.8 kg
--- NOTE | 2020-05-17 22:10 | NUR ---
BIBS FROM HOME TO ER BED 14. AAOX4. NOT IN RESP DISTRESS, BREATHING EVEN AND UNLABORED SATTING AT 97% ON RA, TALKING IN FULL SENTENCES. AMBULATORY. CAME IN FOR PIECE OF FOOD STUCK IN HIS THROAT. PER PT HE WAS EATING A BURRITO FOR DINNER WHEN IT HAPPENED. PT IS NOTED BELCHING. MD WAS AT THE BEDSIDE FOR EVAL. ORDERS RECEIVED, NOTED AND CARRIED OUT.
[2020-05-17] MEDS ORDERED: GLUCAGON,HUMAN RECOMBINANT 1 MG/VIAL VIAL ONE (22:50)
[2020-05-17] MEDS ORDERED: GLUCAGON,HUMAN RECOMBINANT 1 MG/VIAL VIAL IV ONE (23:00)
--- NOTE | 2020-05-17 23:25 | NUR ---
PT UNABLE TO TOLEARTE PO TRIAL. PT THROWS UP CLEAR LIQUID AFTER SEVERAL SECONDS OF DRINKING WATER. MD MADE AWARE. NEW ORDERS RECEIVED
[2020-05-17] MEDS ORDERED: NITROGLYCERIN 0.4 MG/TAB BOTTLE ONE (23:27)
--- NOTE | 2020-05-17 23:44 | NUR ---
PT WAS GIEVN NITROGLYCERIN 0.4MP WHICH IS DISSOLVED ON 10ML WATER AND TAKEN ORALLY. PO TRIALS DONE AGAIN AND STILL REGURGITATING WATER THAT HE DRANK. MADE AWARE
--- NOTE | 2020-05-17 23:56 | NUR ---
DR WATSON PAGED PER DR RUBIO
[2020-05-18] MEDS ORDERED: NITROGLYCERIN 0.4 MG/TAB BOTTLE SL ONE
--- NOTE | 2020-05-18 00:53 | NUR ---
DR WATSON PAGED PER DR RUBIO,
--- NOTE | 2020-05-18 01:09 | NUR ---
PT ABLE TO TOLERATE PO CHALLENGE. PT VERBALIZE RELIEF OF EPIGASTRIC PAIN. NO N/V NOTED. PT REQUESTING TO GO HOME. ER MD MADE AWARE. ER MD AT BEDSIDE TO RE-EVAL PT.
--- NOTE | 2020-05-18 01:20 | NUR ---
Patient discharged to home in stable condition. Written and verbal after care instructions given. Patient verbalizes understanding of instruction.Patient is awake and alert to self, day, and place. PT ambulatory with a steady gait
[2020-05-18 01:26] VITALS: BP 142/98
== END 2020-05-18 01:27 | disposition home or self-care (01) ==
LOC: ER 22:11
DX: T18.128A Food in esophagus causing other injury, initial encounter (principal); I10 Essential (primary) hypertension; F32.9 Major depressive disorder, single episode, unspecified; F41.9 Anxiety disorder, unspecified; E78.00 Pure hypercholesterolemia, unspecified; Z88.2 Allergy status to sulfonamides; Z88.5 Allergy status to narcotic agent; Z79.899 Other long term (current) drug therapy; X58.XXXA Exposure to other specified factors, initial encounter; Y93.89 Activity, other specified; Y92.89 Other specified places as the place of occurrence of the external cause; Y99.8 Other external cause status
CPT/HCPCS: 93005; 96374; 99283; J1610

== ENCOUNTER 2024-06-08 06:15 | Emergency (ER) | payer OTHER ==
[~2024-06-08] VITALS: Ht 172.7 cm; Wt 88.0 kg
[~2024-06-08 06:15] MED LIST changes: -AMPI1VIA12 IV; +AMPI1VIA26 IV
[2024-06-08 06:27] VITALS: TEMP 98
[2024-06-08 06:45] LABS: BASOPHILS % (AUTO) 0.3 % (0.0-2.0); EOSINOPHILS # (AUTO) 0.1 K/uL (0.0-0.7); EOSINOPHILS % (AUTO) 0.8 % (0.0-6.0); HEMATOCRIT 44 % (39-51); HEMOGLOBIN 15.4 g/dL (13.5-17.5); LYMPHOCYTES # (AUTO) 0.5 K/uL (0.8-4.8); LYMPHOCYTES % (AUTO) 4.8 % (20.0-44.0); MEAN CORPUSCULAR HEMOGLOBIN 31 PG (26.0-33.0); MEAN CORPUSCULAR HGB CONC 35 g/dl (31.0-36.0); MEAN CORPUSCULAR VOLUME 88 fL (80-96); MONOCYTES # (AUTO) 0.5 K/uL (0.1-1.30); MONOCYTES % (AUTO) 5.2 % (2.0-12.0); NEUTROPHILS % (AUTO) 88.9 % (43.0-81.0); PLATELET COUNT (AUTO) 223 K/uL (150-450); RED BLOOD CELL COUNT(AUTO) 5.02 MIL/uL (4.5-6.0); RED CELL DISTRIBUTION WIDTH 14.7 % (11.5-15.0); WHITE BLOOD COUNT (AUTO) 10.1 K/uL (4.3-11.0)
[2024-06-08 07:02] LABS: APPEARANCE,URINE CLEAR (CLEAR); BILIRUBIN,URINE NEGATIVE (NEGATIVE); BLOOD, URINE NEGATIVE Ery/uL (NEGATIVE); COLOR,URINE YELLOW (YELLOW); KETONES,URINE NEGATIVE (NEGATIVE); LEUKOCYTE ESTERASE ,URINE NEGATIVE (NEGATIVE); NITRITE, URINE NEGATIVE (NEGATIVE); PROTEIN,URINE NEGATIVE (NEGATIVE); UGLUCOSE NEGATIVE (NEGATIVE); UROBILINOGEN,URINE 0.2 EU/dL (0.2)
[2024-06-08 07:41] LABS: CALCIUM, SERUM 8.9 mg/dL (8.5-10.1); CREATININE 0.9 mg/dL (0.6-1.3); POTASSIUM 4.3 mmol/L (3.5-5.1)
[2024-06-08 07:47] LABS: ALBUMIN 3.4 g/dL (3.4-5.0); BILIRUBIN,DIRECT 0.1 mg/dL (0.0-0.2); BILIRUBIN,TOTAL 0.7 mg/dL (0.2-1.0); TOTAL PROTEIN, SERUM 6.1 g/dL (6.4-8.2)
[2024-06-08 08:21] VITALS: BP 137/89; O2SAT 98
== END 2024-06-08 08:23 | disposition home or self-care (01) ==
LOC: ER 06:15
DX: K40.90 Unilateral inguinal hernia, without obstruction or gangrene, not specified as recurrent (principal); K80.20 Calculus of gallbladder without cholecystitis without obstruction; K57.30 Diverticulosis of large intestine without perforation or abscess without bleeding; E03.9 Hypothyroidism, unspecified; E78.5 Hyperlipidemia, unspecified; F12.11 Cannabis abuse, in remission; F32.A Depression, unspecified; F41.9 Anxiety disorder, unspecified; I10 Essential (primary) hypertension; K76.9 Liver disease, unspecified; Z79.890 Hormone replacement therapy; Z79.899 Other long term (current) drug therapy; Z88.2 Allergy status to sulfonamides; Z88.5 Allergy status to narcotic agent; Z87.09 Personal history of other diseases of the respiratory system; Z60.2 Problems related to living alone
CPT/HCPCS: 36415; 80048-TC; 80076-TC; 83690-TC; 85025-TC

== ENCOUNTER 2024-06-13 23:06 | Emergency (ER) | payer OTHER | END 2024-06-14 00:33 | disposition left against medical advice (07) | LOC: ER 23:13 | DX: R10.9 Unspecified abdominal pain (principal); Z53.21 Procedure and treatment not carried out due to patient leaving prior to being seen by health care provider ==

== ENCOUNTER 2024-06-17 07:54 | Emergency (ER) | payer OTHER ==
[~2024-06-17] VITALS: Ht 170.2 cm; Wt 77.1 kg
[2024-06-17] MEDS: IV NS 0.9% 1,000 ML BAG IV ONE (09:00)
[2024-06-17 09:13] LABS: APPEARANCE,URINE CLEAR (CLEAR); BILIRUBIN,URINE NEGATIVE (NEGATIVE); BLOOD, URINE NEGATIVE Ery/uL (NEGATIVE); COLOR,URINE YELLOW (YELLOW); KETONES,URINE NEGATIVE (NEGATIVE); LEUKOCYTE ESTERASE ,URINE TRACE (NEGATIVE); NITRITE, URINE NEGATIVE (NEGATIVE); PROTEIN,URINE NEGATIVE (NEGATIVE); UGLUCOSE NEGATIVE (NEGATIVE); UROBILINOGEN,URINE 0.2 EU/dL (0.2)
[2024-06-17] MEDS: ONDANSETRON HCL/PF 4 MG/2 ML VIAL IVP ONE (09:18)
[2024-06-17] MEDS: MORPHINE SULFATE INJ 2 MG/ML DISP.SYRIN IV ONE (09:18)
[2024-06-17 09:21] LABS: RBC,URINE 0-2 /HPF (0-2)
[2024-06-17 09:22] LABS: ADD URINE CULTURE YES; BACTERIA,URINE 1+ /HPF (None Seen); SQUAMOUS EPITHELIAL CELL,UR Few /HPF (None Seen)
[2024-06-17 09:27] LABS: BASOPHILS % (AUTO) 0.3 % (0.0-2.0); EOSINOPHILS # (AUTO) 0.2 K/uL (0.0-0.7); HEMATOCRIT 47 % (39-51); HEMOGLOBIN 15.7 g/dL (13.5-17.5); LYMPHOCYTES # (AUTO) 0.8 K/uL (0.8-4.8); MEAN CORPUSCULAR HEMOGLOBIN 30 PG (26.0-33.0); MEAN CORPUSCULAR HGB CONC 34 g/dl (31.0-36.0); MEAN CORPUSCULAR VOLUME 88 fL (80-96); MONOCYTES # (AUTO) 0.5 K/uL (0.1-1.30); MONOCYTES % (AUTO) 6.8 % (2.0-12.0); NEUTROPHILS # (AUTO) 6.1 K/uL (1.8-8.9); NEUTROPHILS % (AUTO) 79.9 % (43.0-81.0); PLATELET COUNT (AUTO) 239 K/uL (150-450); RED BLOOD CELL COUNT(AUTO) 5.31 MIL/uL (4.5-6.0); RED CELL DISTRIBUTION WIDTH 14.5 % (11.5-15.0); WHITE BLOOD COUNT (AUTO) 7.7 K/uL (4.3-11.0)
[2024-06-17 10:03] LABS: ALBUMIN 3.5 g/dL (3.4-5.0); BILIRUBIN,DIRECT 0.2 mg/dL (0.0-0.2); TOTAL PROTEIN, SERUM 6.7 g/dL (6.4-8.2)
[2024-06-17] MEDS ORDERED: IV NS 0.9% 250 ML IV ONE (10:07)
[2024-06-17] MEDS ORDERED: CT SWABBABLE VALVE TRANS SET 1 EA INFUS.SET MC ONE (10:07)
[2024-06-17] MEDS ORDERED: IOHEXOL-350 100 ML VIAL IV ONE (10:07)
[2024-06-17 10:08] LABS: CALCIUM, SERUM 9.4 mg/dL (8.5-10.1)
[2024-06-17 10:29] LABS: POTASSIUM 4.4 mmol/L (3.5-5.1)
[2024-06-17] MEDS: PIPERACILLIN /TAZOBACTAM 3.375 G in IV D5W 50 ML IV ONE (11:00)
[2024-06-17] MEDS ORDERED: IBUP-1490 PO (12:18)
[2024-06-17] MEDS ORDERED: CEPH-570 PO (12:18)
[2024-06-17 12:43] VITALS: BP 142/88; TEMP 98.4; O2SAT 98
== END 2024-06-17 12:44 | disposition home or self-care (01) ==
LOC: ER 08:15
DX: N39.0 Urinary tract infection, site not specified (principal); I10 Essential (primary) hypertension; F32.A Depression, unspecified; F41.9 Anxiety disorder, unspecified; E78.5 Hyperlipidemia, unspecified; E03.9 Hypothyroidism, unspecified; Z79.890 Hormone replacement therapy; Z79.899 Other long term (current) drug therapy; Z88.2 Allergy status to sulfonamides; Z88.5 Allergy status to narcotic agent; Z60.2 Problems related to living alone
CPT/HCPCS: 99285; 74177; 96365; 71045; 96361; 93005; 85025; 80048; 87086; 83690; 80076; 81001; 36415; J2543; J7060; J7050; Q9967; A4223 ×2